=== PATIENT | female | born 1980 | race Caucasian/White ===

== ENCOUNTER 2023-01-22 20:02 | Outpatient (REF) | payer BC, SELFPAY ==
[2023-01-27 12:14] LABS: Age Gdln ACOG Testing Note (.); HPV Aptima Negative (Negative); IGP, Aptima HPV, rfx 16/18,45 Note (.)
== END 2023-01-22 20:03 | disposition home or self-care (01) ==
LOC: LAB 20:02
PROVIDERS: Visit Provider Physician Assistant
DX: Z01.419 Encounter for gynecological examination (general) (routine) without abnormal findings (principal)
CPT/HCPCS: 87624; G0145

== ENCOUNTER 2024-01-29 20:52 | Outpatient (REF) | payer BC, SELFPAY ==
--- OUTSIDE RECORDS SUMMARY | 2024-01-29 20:55 | XMS_ITS | CCD ---
Author Organization [facility] Inform ion Partnership [facility] Care Team Providers Care Unix Analyst Name Role Phone Zapcoder Attending Unavailable MEKA, DR ORONA Admitting Unavailable MEKA, DR ORONA Attending Unavailable MEKA, DR ORONA Consulting Unavailable MEKA, DR ORONA Admitting Unavailable MEKA, DR ORONA Attending Unavailable WEST, DR JIMMIE Dennison Consulting Unavailable MEKA, DR ORONA Consulting Unavailable ASHLEY, PORTIA Attending Unavailable APLING, ALFONSO Admitting Unavailable APLING, ALFONSO Attending Unavailable JIMMIE TOMAS Primary Care Unavailable Be Bradshaw Admitting Unavailable Be Bradshaw Attending Unavailable JIMMIE TOMAS Primary Care Unavailable ANJEL ESTRADA, JAMEY Rodriguez Attending Unavailable JIMMIE TOMAS Primary Care Unavailable ANJEL ESTRADA, JAMEY Rodriguez Admitting Unavailable ANJEL ESTRADA, JAMEY Rodriguez Admitting Unavailable ANJEL ESTRADA, JAMEY Rodriguez Attending Unavailable JIMMIE TOMAS Primary Care Unavailable Kvng Olivares Admitting Unavaila ashley ESTRADA, Kvng Soto Attending Unavaila ble JIMMIE TOMAS Primary Care Unavailable Apling [facility], Alfonso Houston Unavailable Jimmie Tomas MD Primary Care Provider [phone] Allergies Allergy Classification Reported Allergen(s) Allergy Type Date of Onset Reaction(s) Facility (2 sources) Sulfonamides (Antibiotic); Translations: [SULFA (SULFONAMIDE ANTIBIOTICS)] Propensity to adverse reactions to drug (disorder) 9 [facility] Repository (1 source) Sulfamethoxazole; Translations: [sulfamethoxazole ] Drug Allergy [facility] Repository (3 sources) Sulfonamides (Antibiotic) Drug Allergy [facility] Medications Current Medications Medication Drug Class(es) Dates Sig (Normalized) Sig (Original) ethinyl estradiol 0.02 mg / levonorgestrel 0.1 mg oral tablet (3 sources) Progestin, Estrogen, Progestin-containi ng Intrauterine Device Start: 10-23-2023 End: 10-22-2024 levonorgestrel-et hinyl estradiol (Aviane, Alesse, Lessina) 0.1-20 MG-MCG tablet Indications: Uses control Take 1 tablet by mouth Daily 3 months take b/c for 28 days and on 4th month take b/c for 30 days. Back on 3 months straight b/c for 28 days and 4th month 30 days. Continue rest of year 28 tablet 11 10/23/2023 10/22/2024 Active sertraline 50 mg oral tablet (5 sources) Serotonin Reuptake Inhibitor Start: 01-29-2024 take 1 tablet by mouth once daily sertraline (Zoloft) 50 MG tablet Indications: Depression, unspecified depression type (CMS/HCC) Take 1 tablet (50 mg) by mouth Daily 30 tablet 4 01/29/2024 Active Start: 01-29-2024 take 1 tablet by guido th once daily sertraline (Zoloft) 50 MG tablet Indications: Depression, unspecified depression type (CMS/HCC) Take 1 tablet (50 mg) by mouth Daily 30 tablet 4 01/29/2024 Active Start: 09-09-2023 End: 01-29-2024 take 1 tablet by mouth once daily sertraline (Zoloft) 50 MG tablet Indications: Depression, unspecified depression type (CMS/HCC) take 1 tablet by mouth once daily 30 tablet 4 09/09/2023 01/29/2024 Discontinued (Reorder) Problems Active Problems Problem Classification Problem Date Documented Date Episodic/Chronic Headache; including migraine (1 source) Acute post-traumatic headache, not intractable; Translations: [Acute post-traumatic headache, not intractable] Onset: 04-29-2018 Episodic Immunizations and screening for infectious disease (1 source) Encounter for screening for human papillomavirus (HPV); Translations: [ENC SCREENING HUMAN PAPILLOMAVIRUS] Onset: 01-12-2022 Episodic Mood disorders (2 sources) Depressive disorder; Translations: [Depression, unspecified depression type (CMS/HCC)] 01-29-2024 Chronic Other screening for suspected conditions (not mental disorders or infectious disease) (10 sources) Encounter for screening mammogram for malignant neoplasm of breast; Translations: [Encounter for screening for malignant neoplasm of cervix] Onset: 01-10-2022 Episodic Residual codes; unclassified (1 source) Family history of malignant neoplasm of other organs or systems; Translations: [FAM HX MALIG NEOPLASM OTH ORGN/SYS] Onset: 02-02-2022 Episodic Past or Other Problems Problem Classification Problem Date Documented Da te Episodic/Chronic Headache; including migraine (1 source) Headache; including migraine Onset: 04-29-2018 Other connective tissue disease (3 sources) Trochanteric bursitis of right hip; Translations: [Trochanteric bursitis, right hip] Onset: 11-13-2022 11-13-2022 Episodic Other non-traumatic joint disorders (3 sources) Hip pain; Translations: [Pain in right hip] Onset: 11-13-2022 11-13-2022 Episodic Results Test Name Value Interpretation Reference Range Facility Coding Summaryon 03-10-2023 Coding Summary HTMLBase 64 LxtyeycrWAj2bEh+PGhlYW Q+JS9OIDEkU43muCPppJ1f D0KFLYsOUuhyYOELBXrTCg CmppVrUH0arVGcBVWv IC8+CK0bFTToVktcnSSnp9 P0zIB8F35rdo2mJRonbFC8 IAIwNqMssaxbp1obuUb7NZ cuNmluOyBt PGHtuL26TSV7hX60Cr76rM CazBObn5dorLb8DpMuUFDq UCN4mOjaBBrmk3VvXCNdY5 5cmSRhx5Q2 UNOfsNwjlFNnYeZpwIK2yJ 5mGHabezdxb0rfdvagOkd8 sy90jRDhs2E5gED3H5Uvtc W8QGZihAMd YjffeMKRlS2qlkwjl7gpaf thVcLvMMOcHUc3QEp8HECq cAzpAbAbSH97ZLT1TPAaen NfE1KmHALf sOpmMeV2v7D8Un5MU4BYPg qlV4SPSVSMVZyvvVO+PC90 xp50F3RjXaohFlr2EVCgTD T3gFS5oH8f FYXaXIfbj8P5rRJ6Q5Effo Yymy9ql4vfCJGkIBkdZ25m bIUrk0S1VRNfgYQ8GIIlnQ lySuEkyU51 Oyc+EZBxfTkxy2IfAungl4 qsk6uslZb4MtpiFKVblaBd xShuNQY3p4RbIr6tQAWoeC K4aJS7bA2y YhGaNpK1JAjjR122CjHscN ZjMipzL90cZ5YevPY+PHRy Juu2VKKfaFvxNX4gL9ChGR RpbmctbGVm jHnjLC4bOZCwduptLQAulW 6sFLWwC9w5KfJqInH1XTob V3IqVRJmphfuQz10sE6tTx CqOfL9UAun Q8KbtfB1AKHuoBZaOIqrKP E0R64tk6A8USGzCSLrBUN6 oNV4hT2peSizlrwdtDBaoL sgdmVydGlj BJswGIowR272TLJmqVfhEe NvZGluZyBEYXRlOiAgMDEv MTUvMjAyNDwvdGQ+PHRkIH H6fVedTBEx aSHkESvzFg6jiLqcrAayJM 0lQAKizaaaQOAuaQ4lATYj aFUcuGpkPG2cNCMqbibub9 88OxSkWOF1 VEOfgQCqX7MsuT4aDnZoKJ AmRCTnV4IytUSsVVreU824 XCgfWqU4TWMdxzQuN2PeMM FsaWduOiB0 x4Z6Nk7Uk0JrtmyhS7EfjZ MvRmYtDmitXUp0I4UwUoyk dHI+BC45LFNpKZ06TZo5TS N0xUuiDCgn OCPsU3ZalJ9gClOgPJVfGO RkOyc+PHRhYmxlIHdpZHRo CKjtBJFhBwEdvMbsZO2qYv 9yZGVyLWNv iKwxdDEnCdSit9wnJOYeVI rjDC0bmKczG8MeiLG7WIPv b5j6Rt03P41kG3ZgmHO+PG BduHV4jJD6 qZ9nGiNuSbR7UKtbO863Ld YtmKYsIkfdj4zfm6teoGj6 CsQ1PJBeqoAopTzlKVC2r8 RmSe08V06c IHdpZHRoPSIxNSUiIHZhbG uldn5knC2xMo3+PGNvbCB3 dKJ2pM5xKcIwJeL9GUvvR4 49InRvcCIv Venlk4ifc4ryaKc4TyHyBU BxwzStzKyuQQI4o7WkNe37 M3OdtKyyf5YxJhn2mw71qC Ihv6R6lIZ3 K0LmYJUormsthSEhrZbzYP 5hNVFlpwlpJLVjiO5xKAAy P8g9GrQsKwB9BCmsW4Obkc C8EKMgmGNo INNcuJSSlR9nhfxiw8doxl voVxTzZFMvOCi1QCq0ZYIw uUorLyZgHQB0JkX7OKI3zU XmxT9sgJcq vngmnI5tWci+HPL8oPQkyP BEDF5uDdnzrAL+PHRkIHN0 aDncDBouQCSjbU8nBYKdG1 p7KnMmKcA4 FStpS2IvifD8MSUaoJYkZK AdoEAUnR6vjwxjy9pijbcj BbCaUYNvNFm3CQa0MSFqwO duOiBsZWZ0 FpP8AHS7gBUxrT7hpDyxhv zueV8eQve+QmlydGggRGF0 NCc6R8AhKxu8QRCwoHujUI 0ncGFkZGlu Kw5daCzyzZlfKF8hOVKwyo oue174PhYbn7bxWITbfXNz PHpqAJP5V37be7G9OHUqZC JkSPJ1sZC4 sB2wwFnxsyqjhPCqoFmiva OhcBnqVJhnMUqgB742TYVn fXcnYpOrGHw8W3HmTqt3QN DkrRbyWU9o nDSwNUbaUt5jaAvprVywCA 8cFGBbpzyjw254MyNuo1nj DBXmxIUvOOblWJO1T64wj8 J2ASKuXALr FKC2uPU3pJ9pcRagfzhxoY VmdDsgdmVydGljYWwtYWxp L208OLLkpXtiUvRjhKe5G1 OjMap6AHSu zSjnZF9atKOoPWmsJo5jgW nfvDuoUX0jNCQanirbe501 NoDrt2puDXArnASkCWpdGY X5P80fk7H6 IBNuBIRlVKV8lVP9eZ4geK lnbjogbGVmdDsgdmVydGlj FWvsPNooA305KWHibSasUc BhdGllbnQg RVyeEVl0G7KjGugpjAC+PC 77JGLwSG20yJYhbWEux5dv tNt5XzStHLFgIUV1dYraRQ ody1NuLCEn K91fsTMik3F5FLLdbChunS YfDaFaqZN0oI0kEMnhwfls n1kwsumxTisdx2nuaq47nE 80B85pTWph ZHRoPSIzMCUiIHZhbGlnbj 4nzS1fIb8+JSGdyEZ9aVQ9 dA9vPDNgEwW6IKfzS906Bg RvcCIvPjxj k3ydv5vucOx5FfW1YVYcml TrxVwxQEC8z4VtJt01G76b IHdpZHRoPSIyMCUiIHZhbG dzdb7hvP7r Ii8+GCCpbUU3kEF4wI4jAb HgCdB8XUdrT340ZeFyiOUf MtowR58mR9KivVW+PHRyPj k4NTMrlKbw FU3otGUmKNnuPh4eXXL3Sq GjTjSoFJsgD4LsSJDchruv ypwhbNP8JQDvNOHzlG86Pf 9udDogMTBw tTISlJ7korobg7lxpgtnGp HrAESfRMm9GKm4RVQztQgy AjSmJFU5IxD3ADN3gLUwiC 1hbGlnbjog zL8oI1YiPUGugxqrSh01xQ 0wPfFgSnZ7LZvfInr+VEFM Cb3RAWONBN3QCHZOCL70K7 UrXbc9ZTKu gWywPS9xhKNsILndUg9arO fnlXwmJJ5qFWWfufgyQDAd zU1rTFQovYSgpOneVG9mNY Owjhqqq666 QfYvZGO3KDCczMXmJ5AyhR 3cPnBjTGEiVONiG3WvwOSx THdyW374FYzeKxE2QNTrhb VzR5QaKMFl dHjbUjJ6g3O3Xw7hUx0aIk 2pNRydYZ07PU74wRHxk2A7 iFB5Z8GlFSKfvuybnmrdtM H3UCEtIJCk fC85bXWkLUlrBz2vo6T5q0 39WOEpCDLlfP29Hq0ywTra PLLwlFYAuT0kkxivq4myed ogIzAwMDAw ORx3JDf9FOMauAwmIgSzHL Z2LoG9DXB6cEFhvO5viSbf amhyaH7vZtg+NDEgWWVhcn L6S1TvEma9 LBLhkNkiEU1ihVKgMRshOj 6wtLkmlEggGC5gHZEsurxj ZYCcpH5jPNLnfZIraRsgCO 4wNTBpbjtm f277GvFcMZN7ZCFaiCExU1 CjgI4cDrUgJNLgNCOmL6Pz yGMqHIzmR072VLlqAwE7FW JslaIbU8Bi LWEqgNxhTdV2h0W3Ux9JSL 2DBWR4N5DhAdr7TITuvLsb KI5yvIIeCXvuNo4juRvwaX hbEJ4dURZz htteLVQdzC2qQEPgeQMdoN roWO0hXCDmdflpw732ZuLt PZR6WECxnMXgE6FlxM5qGr AjMDAwMDAw I5IydAWiGWbfU640GLysQn G4HJKtakIbH4ThAXAvaFsa VtE4q2W1Yx6HLXechDC+PC 14jj63L1Qq YlapVzd2XESqTYO2oGH1vB 3dPOBkHSskg4U9hFE7U5Ul doGgfb9fj9btHPSaYRvvB7 5byYPpx1Z1 TUDjzQA0SJPfiMmeNqRzrW 93Oyc+DEPkbNore4DsJrgc x2zyz0qqxRc5HlDpDMWcvh FsaWduPSJ0 s1DsBa20G45eRGxpFUZoFT EsBXLfXFIuxFfksz0hcG4e Ii8+NITtuIA5bCF5vD1tTm PvAdY1GAdf B810LwDdrLNpHhmvx6prt1 qafPw8VyFoFHPavbVoaOif VSJ8f2JrIl70A0BpdNwth2 HtNqy0ca95 oLZgo5T3mEB9V4JsWIJhdh sjgLSaaTbkVN2xUUFqrpdi DDOclF4jCAOcR2t7AiUmEp R1OLhjN9Oq inP8JAUvkVRrOWVdcEGAzJ 2thcojh7zjqicxBnVpLZYf LPs2TIu1MZSovWrlIiIfLS D3MnT0VPD7 qHKmjK2gnNjaddtjiG9jKb c+IRo3w7uteKYkAX7rgQY2 HM90RW78wQVow8X3mUC9G0 BhZGRpbmct phxmhLB2WBNhFQRgsM70Xg 0vmKcrZn1aAVHhTGF3AQKh uGOcW5KaiR7fAkAdJQYeSN UoJ0JhhOIo EJnfQ255FRotNdM4DMYivc TxJ2YpLAYfvSfaVoK5i8A2 Pz6TUB35BT72XB41mXIru6 Q2iEP8M1Yb VROvonrshweetJA7PLKiMS UhpX78Fb7daBaaGd8gKZNp GTW2EJLyfJPpK9LslE5rMa AjMDAwMDAw A3JedLGqRQhbR493PEwwJd A9QESkklVaZ3LkOYRkpKci GhG5f8F8Fk5ODv94BD74JD 87vLHfs6H5 wZM3Z2TjPKUwtsxsorjoaT N2AAWdZCOfxS21Le3rlJnj Mc7kGNYxPPO5AFUqtCXeY1 KxrY4fMaNh MDSyRKJyA5KomPRsSRalA3 91JWqlCkZ8TWHlnlBfQ9Mk DOPbvKqqSzO6q6J7Nk9BJL ikzgn9E3Lw PjwvdHI+SM40DFVeLC66fW IbkTAsu1oidOm9SsUtCQSe RAS4pOrqDPjmr4LeMGSkP0 4qaDZci3A2 IGN (more content not included)... [facility] Coding Summaryon 03-05-2023 Coding Summary HTMLBase 64 WgjlkwgwDWb1uZk+PGhlYW Q+MO1MAUGdG08yiWXfhR4d X8FXSNtJLsygLCQJPMyIIk AasyViWZ2wcJOnNWGa IC8+OD5iTXDpEeifbOJjv7 D4rGO1L21zcj5sHMuwfLK3 GWEfDdAwwagkj7rqzLj3QB cuNmluOyBt FVWvlV41FPA9vR74Sn32dW IglYIth6uezXo8YfWyBTAy EIG5aPloGZyvx3HwAZSuR7 1heJAmq0L7 SJUqfQcqbCDxZvVayPO7lF 7eBPvlkyqlz0wanymwXcw6 bk51eJUxr6A7oMM9I6Imbs B2ZMPrbFVr VxstuNBJaQ7vpjnkx2ksmp haOgTrDOPzRXw4IQo2JFRp aStgJwCbEK52FZB9ZVDktp EkJ5ZdNSJt yKtfIdH7a6L2Jx7QZ1TBLn jnG1DFXFBCZQmzbCO+PC90 vc65T6OrKcvlGfi5QQIiTO M5tJW2zY7o RLDmMRuna5E6nHS0D6Gung Odri4cw9pfUBQnXFjgD10g cGZua9W8QQYhkIK6ZOMeiT vpPmOttI03 Oyc+CCIflYdlh8MiSthpr4 prg2ffuRy4DywnAXKezbJn dUamEZD2l5ZcCk2gHMHebY O6cJZ4vC4d SyAuXnG6ZFsxF431RcGaaC JnQcssV08oU3IciKO+PHRy Jud1HAJwiUqcCO2hY7MxHK RpbmctbGVm vBhhCV0vMTKhcpckREVugR 5tBLAyC4n3JpKwBeB8XIme S2KtLZSpwhyhMk26gH1wKi MiUsG5QByi H3SioyO4JACecRTdRErwWF H2D79dx7N3GBSfNFDvELO3 dCV4hX6phCjbkfjpaBYcwI sgdmVydGlj JBspSVnnP791WIYphDumVs NvZGluZyBEYXRlOiAgMDEv MTAvMjAyNDwvdGQ+PHRkIH S4dCtfGBXt sWQoFEfaFq3zyUpxaCcfFW 6pIWNqlrveYMSymQ7zQJXq pWHymJzrMX4jAKDkjtwyj9 71KkFcQRR8 SFJfnCYwE3OcvY9cHeFwEO AzTWQlB4UqjTYkQFipC094 EBflZkT6IXJwgfDvA0CjGH FsaWduOiB0 h2Q9Ww3Ie1WtbqwfD2JltF AiQtHlZusjILu1K4HqFhbf dHI+HQ61BIEkTU61KDp1YQ V5vFngLAhb FMDhT6GznU9kWuPoGZJpDJ RkOyc+PHRhYmxlIHdpZHRo VLoaFADiSlUblFvoOR8rRq 9yZGVyLWNv pSkmwNTgAoNso1ucNLQqQU nbPT8ziEbyP8XclWR4SBKy m3h7Iz29W34pP2EivOS+PG NzbHL7tCW6 xV6eVzPgGtL3MKxzY720Vz ZriPDgCylcl7snp1bvhFs8 UaC7XQKytyFfcTeoNAR5s9 DbYm57V26d IHdpZHRoPSIxNSUiIHZhbG wlmd8ujR1aDb2+PGNvbCB3 nZZ9jK5dZfEwKzW9NKxiW6 49InRvcCIv Uecpl5hhr7hquYc4XwGhWS RminPvxSaeZPX6l1LcBy72 F0TsoXbef4XuHhv7zr75yE Sao4E5yBT5 U4CjYNOnwtocaYPzmJcsFZ 3kXABymegbNPQdgK9iQDLu B6f2CyXtXjZ9KJkgS2Ozgk W0YTYipKNw KKRqnKARdK0yctaqo4wdpm xuIxGdLRUbXKh3AXh4BKSf cZwlIlDrCUP4VnV8ZCH2nL JyvE8loEwv pbkucJ4pNhn+IPM2fRZhlL TPIW9fRpjbxTC+PHRkIHN0 rXevVWqsJTXleT5oZMZmR6 k2OhEvSmW7 AXmgL1HzwgQ0LZCurOGxAF MctUAVyY6kzdfel2epbgqy TyOiVWAiLEt9EAk8VRRowH duOiBsZWZ0 XiX4IKO6jLDskE0htUgqbe pjbI1uGuq+QmlydGggRGF0 YVh6Q6WvJlt1ACLbaEjcOE 0ncGFkZGlu Pb1jxBhdnSfvKT5zFRPavp eiv428IsNgd6izQBTwmZFb PPczPKA4A67ew1L7YVWwSO KbHMZ1vQH2 qH8jpYietaufeGKvpZrsve MigRcoGYyzPMufM325OUWh rFqlVhLwWWm0Q9FwDyi6GM DklAprEU6r aWAvEUqeOv6xnXfujTwyAR 5nENEorwxjl852MiSfq5rn OWRgfLNpKAloXDL0C27wc8 M1TSZaYCKx IUB3wVD1jE6uhRrqzowiyP VmdDsgdmVydGljYWwtYWxp N103CZXnsIsyFjZhsAx6Q2 QsDkj6PKTm wEydJY5qzRRjFByqNi9lxN ytuRohUN2cPQDddfbfd409 CaQwj5gqNNCzrDMuPOsaLB G0K28tb4K7 THHlFEHcBNW0eGV8wH2quR lnbjogbGVmdDsgdmVydGlj XIphUTyvO320NYGznXfpAm BhdGllbnQg MBkjRXw1G7CxCsfcgKS+PC 17DSBpDA38uFFklIZnf3tv yAp2FeReKQExFWW2dDmhZU wmt1DvKSZg E84inRGyx7W2REMsuFytvX JnAfLlkRA9uP6uUSrhinfy g4urivwwLtkgg6bmgi77fU 70N84pYWff ZHRoPSIzMCUiIHZhbGlnbj 8iwA4yJd2+ETZgwFP2mXY5 bJ6kHGHzFzM5ABijK449Ba RvcCIvPjxj b4fia5ysjEy2EdW2ZTIukm HddXypLYC0t9ZxHh97G16r IHdpZHRoPSIyMCUiIHZhbG yspe1vpQ6w Ii8+AUVwsDO9rZZ2uB2kYm ZwIbB3MXdqG409UoIzwHVf QmuoV92vC0AprTN+PHRyPj n2FPVioWaf MU0knOJkQLdjRd6wXPA5Ig QwCfMrHVxvN2OkXSCmjhnp ryqngZO2UQBoMJXvrQ54Vz 9udDogMTBw uUARoV9ovqflb7gyzhwnPq ImJYFaQOq4VVw5SVUxlHfy HbUnHFY0GxM4EAQ8rGXceK 1hbGlnbjog mN8gP9UoWARxaqzvOj54rD 7gOyAkDbL2DMqlDyt+VEFM Yd0NQXBHOB1SPEJVBG58H4 AyFww6JXSo jGkxCN4wcWVsIZfkUh9rdJ unhQqhUA9tMZVvmzywZHNo zI2wEVXazTZizFmnQR9hRU Xtzeztp811 CvFxLDE4EWJgaIHwO0JvjR 3eQqYkMWRyZZVqR0ZcgIIx IUlsX910CUpkCtS0KUPkrn AbN6NiOBVq aWuzNlM9f9C5Cg6qZr4nZl 9cKMtiTJ96PT08bJUfy1J0 vGP5W2FvRFZfnwiblcaemO P5JDPrBGAn sN48sUPmDLbyVr2cq9X8j0 48SJWhXZDjwQ20Cy5rtJsz DDFspXFPpV1aacgtt1pcss ogIzAwMDAw YUe6NLt9PEAwsOgaXaMzUH E1WiM2VQR5kTTyiA1hqPzz rzfzeJ5aCwq+NDEgWWVhcn S4E1AkUfa2 CCTrjXkhBJ9mkNCnFGhwUh 8xdGfguFpxRC9rOHQnzwlc CYFmsJ4nQFCorEWjvKkjNJ 4wNTBpbjtm q344AiNsERN3QJBroUNhF3 QpsT4zIlGcCYLgGVWuO0Fh bJBwTDbyU087JVboAuQ7WF XphhFvH3Jz GCJcgZllVaB2k8A5Ye3FZQ 6MXUV6C3SiTkt4FVSktCqg XX0gvVSgETvzAf2ftHmvrR itDT5hXKAq obfqPAIcdA1wDBVinWRdgX cgVX2hQVXknkbsx566WnGn GJM7YIClqFAuH6BqpI6iMq AjMDAwMDAw V8WzoOQrUWenM201GWhdWr D6NFCrtvAsY2NiQAKolXbd TdV5d1P0So7FzHUuO2BbN3 d3D3FeIvus dHI+YD73PAPtJW05qNKbpW Nqw2fzzJw9UyCsREPvLCA6 tDpkBWojp9ZdNKAdR06igS Rvl5B6VSVs dXflyPYuYjYssKS3dD2gMA gxzjqhb7fowlvuSuhla5za ix14eS74D42cSJuwFKApUS IzMCUiIHZh xYdduj1afH0wTq6+PGNvbC C0wWM9cT2uSqGyIaZ0SHkj J913KyBtvNDsJhwbv6ztg1 ykgCp0OlSu RBJakbMczVdwEET3f6FrMj 67I31aPCvuZUSsHUJhJYPc SHPsvUciht0umK3aJy9+PC 1yc2klls84 yE40aZV+VFClBBL5nVwvXA jtLNTaaJ3nVFxpQrL0SLYv ZdYcvP24iUAdLTzeCy5foC dsyPuzWR9i ITHxswlny089RgYtl3ivMZ NjpVHrPXnqASL2V98om7U8 FXIkAHYwDOH3eBC8hD4sdV lnbjogbGVm dDsgdmVydGljYWwtYWxpZ2 41KXDafBeiHdWoeSJeK5wb mgLOAA2fIapbyXA+PHRkIH X0gLwuTVxa WAOyjE9hSXPrS4m0PrLlPd O7TTlmY6AhajM0PYFosUCy XBPikLUNfM7yxkokt2ogrt ogIzAwMDAw MRx9GLl3TSPtdAtoYnGpMO M5IzP1TFS9xNHtaZ5czDed dhxuuZ0wZoz+RklOOjwvdG Q+PHRkIHN0 qOmuTNwxXXFghZ5uBVJsD4 i1KmLyPyK9UPgpR8DoakU8 LKFbhUCwYRLksMYEfW5tou bdt7ryjwfx HmHaTFKiTUh9TMo3VXImpU haJjFyJSB9ThM5ZHF2xVOa mZ8dvOabzdqpmO3qJwg+TV JOOjwvdGQ+ CSJsXTX6qSyxFFztXXOsoU 1jTZYgQ7c4AjRgFqT4BWcc V0FwgsU9MOAcqPSoLOTqtN QZhL6fwina w5hlytnsLnTsJIJaFHn5PT e7HJWmdAfoDdKxGPC6QkZ6 LMT4hFTbxS4hqVwxztoraP 9wOyc+UGF5 WTV6II73EM73E8CwWepohW FibGU+PHRhYmxlIHdpZHRo FBbiZPDoOmUorEfnDS2lKl 9yZGVyLWNv bGx (more content not included)... [facility] Coding Summary HTMLBase 64 QtbxanriZLe1yYm+PGhlYW Q+XB8EMNKzY53rfQXaeU3v Q7ZITMzATbbtVLZAULmRTj ItkhExAY2iaBZtBGMt IC8+VM3cFLNyQbynlINhp2 T1dIX8K23juu2yBDhtsMK1 WHHfVfLldnlpf9zdyFj7CB cuNmluOyBt ALShnJ67BAI4iP08Rv08eK ZdiAQbx8ptnRt2VmXxYGUs BKK5iDtjCCqbb0QjGZNvG7 4cuOVqs1T8 OAGwiRymwVTwCrXpxEZ8nA 4uDQjguekvo3iykyajFak0 gr01xFHxs1T5wZD3N8Wjwx F0IZJdgXNj XcfgxBMAnC3ktukgi7fdqm mbMqVrMTJpLKl9LBv0ABVu kKsdIoJfDN13NWV3QHKklh EnK3ZpHLWp tEkyShK0g9Q4Yg4EG7LSRx iyK0ZPYSKMXNgvmJH+PC90 fm34S7LmQyusGxw9BXCpZD B6fWK5gM9o EURaKQxwo2V8jZB5B1Gtdn Mzdb9wo5bqWLCeEXsmF52t wKEzi5C1PDHcvGZ0FRKxcS owMeUquQ08 Oyc+LNUqjRzmq6XcNlfjp0 iyp5kahGg6OuhyCOFkswKe bUmvDCI7d5CcQq6gHXGayJ A0hDC1aX3i UdHlBmZ1VRezG758GnQfoV ApFwhmG48lM6DmmTV+PHRy Tld4HMYmsQndUA1sU0TwQM RpbmctbGVm eRhbNC5oHZPnzroqUAWnoV 0yMYNdD6s0KuWaVjQ8BBog A9EbCLBgsewhPs31zI4hGd KdLgP5FCqs D1HbuvP4KKNhyIUhGKhlFY T2K86uo7K9IEOlCGXoZNB6 fHT1uP4ziBxnmgbdfZNoaF sgdmVydGlj SKtxMWrrT552QFNcfPspCo NvZGluZyBEYXRlOiAgMDEv MTAvMjAyNDwvdGQ+PHRkIH L8kJyiPSJx iKXcUIzfSb8eoAzdoRktDY 4aIQFbukrmXAWkbT1bMCIk kNAfsCgrCL8jGPMmbmknf3 02OzAeHLM2 UWFhsFWkZ2LhmN6qJsAwNV CuRDRdH5DciHZuFXhqJ513 YAvhJjR6DXNherFbO2CwRD FsaWduOiB0 p5C7Cv6Gn8EltfikG2EzsX AuAnJrRiqrVDg0V0OwYzzs dHI+SM77JOExCI04ZAt6BZ X4pTkjJBpx YHRhJ1BglW0eJxBdBDTqLB RkOyc+PHRhYmxlIHdpZHRo WKwnXDApJqZerUztNZ0lOk 9yZGVyLWNv zQyhpSRwKfZhl0szHSBqKK gnBK7auKvsW1MwoUN9HNFn t3j1Mh45K38mV1MyxAK+PG VqdCA7gIA1 oJ3vXlAbMmK4PSteD728Wp UjfFRnTlmrw2lpy4ksxWv2 RxT9ACXepxItjPvsNAH0d4 XkIq86X83g IHdpZHRoPSIxNSUiIHZhbG rubv7anX7aVe0+PGNvbCB3 mTE7dE7yByEwGtJ3TUbnC9 49InRvcCIv Jsqxd9inu7vwfDf0EcZjRB HofyWytCqaMWX2v4KjPt10 E4KftTbup2KtOrr1aw44mP Ths2O5hPQ2 U4FaRHKblrpumBTdoLnlTT 7uBOHdsuibAYHegS5uQKGs K5w1IcCvXyN6TWjpC6Pnec B5VLHrdIKq EWOgcBAXsH1gfvrbw3pjkg maNgVgRPChWTb4JNv0BBAe eAflWqImGEA0OiO9IGS1gB LqmK3uaHws thcyqX8cIdv+OLN3eAVscQ RKXC2tFsninSC+PHRkIHN0 zZzoEGleSVDtqY6tNONkJ2 l8PkIzJvH9 ZMxyO5FsgvK3XANjuAZgRZ ItqHGDsH0cnbnwc3dihqxw HdSeOKWdPUx2YZb9WSVuaP duOiBsZWZ0 McX0QVM3yUWakK5cnRrfks qoqJ1bVci+QmlydGggRGF0 YKk7Y2FlQzc9LJFisTpgMG 0ncGFkZGlu Sl1qkOxaeHvyRB4zSNZvgq xzo779TrBzb2gaHFHktAMr YKhvWQV1Z46an4F1YTGyCA TzPJC5hXN8 bP5yfBcqmcvruSAltUplhy YwwWzuBOnrJVufN601LWWz kTbvJoUxVXt7W1JiXbf6YO OmqZqjFB8n eWYkDBgfDy5zuQxloMhtBQ 8pTEYmecbva057YhCok6zf SHEzwRCeXMhsTVC1P63bv7 R5FYDkNZOw PDO5vDA6yR4baPxsepyqrT VmdDsgdmVydGljYWwtYWxp R456NAHzaGuwJlWjsUz5M5 RbEja7KWTz iAtiRK1xyJMgMQrzTo9jfQ dwbVizAH9sSZGvgfium456 LbRqv3brZWXodCMnIAzwZO L3G71dy7R7 EKZvLJAoWEV7jFT1xG7sgO lnbjogbGVmdDsgdmVydGlj AWyrAJfgU178RWHrgPccKo BhdGllbnQg UGtbGTf6W3MeXanjrYC+PC 77QGDdTH14sLTgzPEsc6wf uTl8DoQrPRZgKEZ5pSuiJP xuk4BvEKRa R10ciUMhv7P1LDRzyGjcqU JmQdWwrAN7rT7lKObbuzzv b8tsdbrzNrppj6jvwn37wQ 99N00wGQfa ZHRoPSIzMCUiIHZhbGlnbj 9sdF8mOt8+THMufXC4lTM9 qT8sFIDpNrM8MAxkQ696Hb RvcCIvPjxj t4eet8xqgGp3RhL6JFOkax ZzmMrnAHD1c4TfUk12Q11l IHdpZHRoPSIyMCUiIHZhbG yxfe6bnF1j Ii8+LWXyuXJ0wQJ9qU9sEi PnKaH2QHfwN203KoLwzWZl LahyT03rQ8VmjLI+PHRyPj o9GMYbgQyv HC9yvGNjTUohSt9eJIF0Fr SnSqDwBAdjS0KkACJpeyux cxfwfCO9ISChQVJnjU53Ef 9udDogMTBw lQVClK8gxhpsw5xxmgtgPv UmTYSrFPf4WEk2AFVjhOyo UoJhLFP4BtY3XIN4zYIhtE 1hbGlnbjog tT1kG4TjTDWjslhpNg70aG 1nTkDvCuS0YCcnJsc+VEFM Za1DPAPCUG4NCDEECM47H5 FpKaw7GVWb rHaxUC6oqSDhSVxcUe9ucA beuObuIT6gVZZoajusNVDp pA7nCJGmhTKxnRgrGX8jIJ Gzalrde239 ElKmGHP0SFHdfSVxC3QbjK 1oKxHdUPJdBHUyW0UkuALm HEbvW811TRxkZaD3LLYkiy EdQ8NdTQIy zJzvVcC1q6A6Tx8aHw7dMf 0cJPfvGM94QD53kPEkr9F5 bAO1A4VsRMXemnbjcqyfyC E3RWToWXMd bD64jVQrTYrmYz8ei6Q1q2 35TXCpSWHohM32Mv6yqDwq KLMtlUOXjG8wezwbe6hzoc ogIzAwMDAw JHu0TBx7GUJosWqrOfAzPN Y7TmT8COP0pZNgeW8dlTir uwutaF9bGdr+NDEgWWVhcn A1T1BnLzi2 LHZqbYokTT3daWOyTFooKp 9neIxsyPywCQ6eEBXgxbbn KJQpaP6jXORflAZdrOgrGO 4wNTBpbjtm j228MlXxNMX3SGAhwYOjU7 VdgG6lJjSyXQDiXYMpA2Jc xRDqFWifC235YJyhPtJ3CT MqtmNyP8Sv TPGmwDgrLrE1p8P8Vh2YNX 0QBTY3I5UcDxa9XBIlsXxb PY3kzDXiPFjzVc8fnOffsL yvBF8tDEQy udbaXUYkzF9fWQSvhQWwhS iiIS0tCCIlqxyju017IsFe GVE2WCRvqXOgL9WzlI8cLh AjMDAwMDAw O9TthTWwEAwkF111YXpiBs G3FZNazrHiD6CzXPQhtYok XrY8s4T9Ai4KkKLqO3JjP5 x6S2MbOkat dHI+WH80REVzOZ56yPGbxJ Zwo6dwiDx2RxCcHSPhQMP3 qQmyQXxfi7BwPOTkR29qbX Ifs5P0HMCe gNsrqTMbZjPruQM0nL3nUG jdgzkdm0mubxkrPrwzc3zw st32yP64P32sNKkdJSKvMQ IzMCUiIHZh bFlqow5wkY4sCs9+PGNvbC X0mRM2sY7sGiBcRwC6HWjg J281VeAxbRUeUsvtt6tcv6 hpqHy3QgXe RMHqrxEyyBtdIHL1h7VbUf 84U84xOEuaEWOtOUWyVKSm OLWjnZfylm3keE8dAu6+PC 5ut8fqxb36 bL16oRA+HQAfXKK5rUzuKN guRMWcmT1xTKojBaS9ANSh WwXpuS30jEUsJSyrUm7ucH vdeKyuTD4j QOJkibgmy243KtDdz3nkOC AmoTEhJPcrKOY5S43ey5M0 XXYzOSKnQAB8rRZ2xR2voF lnbjogbGVm dDsgdmVydGljYWwtYWxpZ2 50CPWgoYqdKkOniJVbQ7ou syMDKJ1pJpdqyOV+PHRkIH W7kUnxWSlp VPRmdU4oRLSfP7w0MgBaCq S1RQauL1IqimK3TDRseQSx MYEzzNYAyI7lmoojh9mxan ogIzAwMDAw EIg6XZz1SOKynAkaMoWwZG H9GhX5MEP4rIFnzO0foVdt zqixeK3qNxr+RklOOjwvdG Q+PHRkIHN0 sAxoZGgaUKJkpE5rWIHyX9 q5TfVhXjV3QKmkI5KaiuB1 SXMgkKGtCJAwhBXMuI6ppi fwu0wuaevc XcZrMEYjVGd1YBs1NEUulD bxJbFbLSQ4QeO8KPL6uHCu iS8vzWbvthzpxQ2hTsa+TV JOOjwvdGQ+ WVMuHWB2fZdyDWlkIEIkfK 6zWODwG8g0RtYyNpP2IOeg V1SbkvO4XABnjRYuFKInjB ATrZ7tunep e2ljyxsyOeGtIQMaYId6GT a1TPTrrVjdFjHpRHC3MwW3 LIG1uPExbN6kxHzprnjlhL 9wOyc+UGF5 TRR9SV88DX42U8IvOzxoaA FibGU+PHRhYmxlIHdpZHRo QFzeBOPoHyLbvMooWX7gPb 9yZGVyLWNv bGx (more content not included)... Normal [facility] C Urineon 02-21-2023 C Urine Urine Culture ordere d as a result of parameters set on specific urine dip and urine microsopic results. <10,000 cfu/ml [facility] Comment on above: Performed By: #### 1 [id number] ####[facility] (DEFAULT)[address] [place] [address] Consent Formson 02-20-2023 Consent Forms [id number] TGTIFF Normal [facility] ED Clinical Summaryon 2022 ED Clinical Summary [facility] - Emergency Department [address] [place], [place] [id number] ED Clinical Summary PERSON INFORMATION Name: SHANTAL GARCIA Age: 42 Years Sex: FEMALE : 1980 MRN: Acct#: Visit Reason: Medical problem reevaluation; Abdominal pain reevaluation; Nausea and vomiting; Abdominal pain; VOMITING, ABD PAIN, BODY ACHES Arrival: 02/19/2023 17:54:42 Discharge: 02/19/2023 22:00:00 LOS: 000 04:06 Check In: 02/19/2023 17:54:42 Checkout:02/19/2023 22:00:00 Address: [address] [place] [address] PCP: JIMMIE TOMAS PROVIDER INFORMATION Provider Role Assigned Unassigned Susan Ramirez [employer] Nurse 02/19/2023 18:17:25 Tomás Mclean [employer] Nurse 02/19/2023 19:14:40 Be Bradshaw DO ED Provider 02/19/2023 19:32:07 Kvng Veras DO ED Provider 02/19/2023 21:20:44 VITALS INFORMATION Vital Sign Triage Latest Temperature Tympanic Temperature Temporal Artery Pulse Rate 86 bpm 80 bpm O2 Sat 98 % 100 % Respiratory Rate 18 br/min 18 br/min Blood Pressure /71 mmHg /71 mmHg MEDICAL INFORMATION Medications Given: Medication Dose Route ondansetron 4 mg IV Push ketorolac 30 mg IV Push iohexol (Omnipaque 350 100 ml) 350 mg IV Push ondansetron (THP #1 Tab ondansetron 4 mg ODT Tab) 1 packet(s) Oral Allergy Information: sulfamethoxazole PHYSICIAN DOCUMENTATION DISCHARGE INFORMATION: Discharge Disposition: Home Discharge Location: Home PATIENT EDUCATION INFORMATION Instructions: Viral Gastroenteritis, Adult, Pedv-[id number]; How to Take Your Blood Pressure; Abdominal Pain, Adult Follow-Up: With: Address: When: JIMMIE TOMAS [address] [place] [address] [phone] In 2 days 02/21/2023, only if needed Comments: Take Zofran as needed for nausea Use Tylenol and Motrin every 8 hours as needed for pain relief Drink plenty of fluids with electrolytes even if you cannot eat. Slowly advance your diet as tolerated. Avoid spicy or greasy foods or anything harsh on the stomach Use the BRATTY diet consisting of bread, rice, applesauce, toast, tea, yogurt Return if you develop persistent nausea and vomiting, continued or worsening abdominal pain, blood in your stool, fevers or chills, lightheadedness DIAGNOSIS: 1:RLQ abdominal pain; 2:Nausea & vomiting; 3:Blood pressure elevated without history of HTN; Enteritis; Viral illness Patient Understands: Yes - Patient/family/caregiv er verbalizes understanding of instructions given Comment: Normal [facility] ED Patient Summaryon 023 ED Patient Summary [facility] - Emergency Department [address] [place] [id number] PATIENT DISCHARGE INSTRUCTIONS Patient Information Name: SHANTAL GARCIA Age: 42 Years Date of : 1980 Reason For Visit: Medical problem reevaluation; Abdominal pain reevaluation; Nausea and vomiting; Abdominal pain; VOMITING, ABD PAIN, BODY ACHES Arrival Time: 02/19/2023 17:54:42 Primary Care Physician: JIMMIE TOMAS Attending Physician: Be Bradshaw DO Comment: Visit Diagnosis: Diagnoses This Visit Abdominal pain ([id number]) Abdominal pain reevaluation ([id number]) Blood pressure elevated without history of HTN (R03.0) Enteritis (K52.9) Medical problem reevaluation ([id number]) Nausea & vomiting (R11.2) Nausea and vomiting ([id number]) RLQ abdominal pain (R10.31) Viral illness (B34.9) [facility] [facility] is open Friday through Friday from 9A to 6P and Friday and Friday from 9A to 5P Prescription Information: If you have been given a prescription for narcotics, seek immediate medical attention if you have any difficulty breathing or any sudden status changes such as confusion and sleepiness. If you or anyone you know is experiencing suicidal thoughts, mental health, alcohol and/or drug addiction problems; contact the [facility] 16/09 Crisis Hotline -Text 4HOPE to 655963. If you received any narcotics, sedation, or any other medication that causes drowsiness for the next 24 hours, unless otherwise directed: ? Do not drive a car. ? Do not operate machinery such as power tools, lawn mowers, drills, sewing machines, or stoves ? Avoid alcoholic beverages and drugs for allergies, nerves, or sleep ? Do not make important personal or business decisions or sign any legal documents With: Address: When: JIMMIE TOMAS [address] [place] [address] In 2 days 02/21/2023, only if needed Comments: Take Zofran as needed for nausea Use Tylenol and Motrin every 8 hours as needed for pain relief Drink plenty of fluids with electrolytes even if you cannot eat. Slowly advance your diet as tolerated. Avoid spicy or greasy foods or anything harsh on the stomach Use the BRATTY diet consisting of bread, rice, applesauce, toast, tea, yogurt Return if you develop persistent nausea and vomiting, continued or worsening abdominal pain, blood in your stool, fevers or chills, lightheadedness Medication Information: The exam and treatment you received today in the [facility] Emergency Department were for an urgent problem and are not intended as complete care. It is important for you to follow up with a doctor, nurse practitioner, or physician?s assistant offset press operator for ongoing care. If your symptoms become worse or you do not improve as expected and you are unable to reach your usual health care provider, you should return to the Emergency Department, we are available 24 hours a day. For those patients who have received Radiology results, the interpretation of your X-ray as given to you by our Emergency Department physician is only a preliminary report. The Radiologist will review your films and if there is a change in the diagnosis you will be notified by phone. Please make sure you have provided a working phone number so we can reach you if necessary. In the event that you had a lab culture while you were a patient in the Emergency Department, you will be notified by phone if there is a need to change your antibiotic. Please make sure you have provided a working phone number so we can reach you if necessary. [facility] Emergency Department has provided you with a complete list of medications post discharge. Please inform your licensed mortgage loan officer/provider of your visit and for further instruction on these medications. Any specific questions regarding your chronic medications and dosages should be discussed with your primary care physician(s) and/or pharmacist. New Medications [id number], [address], [place] [id number], [phone] ondansetron (ondansetron 4 mg oral tablet, disintegrating) 1 tab(s) Oral (given by mouth) Every 8 hours (scheduled) as needed as needed for nausea/vomiting. Refills: 0. Additional medications on your home medication list not specifically addressed. Please contact the ordering physician if you have questions about these medications. ethinyl estradiol-levonorgestr el (Aviane) 1 tab(s) Oral (given by mouth) every day. ondansetron (ondansetron 4 mg oral tablet, disintegrating) 1 tab(s) Oral (given by mouth) 2 times a day (scheduled) as needed Nausea. Refills: 0. sertraline (Zoloft 50 mg oral tablet) 1 tab(s) Oral (given by mouth) every day. Refills: 3. Visit Information Allergies: Substance Reaction Symptoms Type Comments sulfamethoxazole Drug Vital Signs: Vitals and Measurements this Visit (last (more content not included)... Normal [facility] Electronic Messagingon 02-20 Electronic Messaging --- --- --- --- --- --- --- --- --- From: Directtest ([id number]), Directtest To: SHANTAL GARCIA Sent: 02/20/23 08:38:24 AM EST Subject: Discharge Summary Ready to View A summary regarding your recent visit is available in the Documents section of your Health Record. Normal [facility] .Auto Diff 02-19-2023 Auto [place] % 15 % High 03-07 [facility] Comment on above: Performed By: #### 2 [id number], [id number], 34091937, 5798838971, 0122852084, 8559092, [id number] ####[facility] (DEFAULT)[address] [place] [address] 38817 Baso Abs# 0.0 x10 Normal 0.0-0.2 [facility] Comment on above: Performed By: #### 2 [id number], [id number], 82434404, 2805184273, 3997167236, 7029413, 7684995448 ####[facility] (DEFAULT)[address] [place] [address]4537 Basophils/100 WBC (Bld) 0.7 % Normal 0.2-2.0 [facility] Comment on above: Performed By: #### 2 [id number], 0690871363, 86446116, 7504511529, 5184539010, 6614292, 7665779508 ####[facility] (DEFAULT)[address] [place] [address]34 Eos Abs# 0.0 x10 Normal 0.0-0.4 [facility] Comment on above: Performed By: #### 2 [id number], 7079402162, 02075418, 1559129949, 6921294160, 1348526, 9114315286 ####[facility] (DEFAULT)[address] [place] [address]186 Eosinophils/100 WBC (Bld) 0.0 % Low 0.9-4.0 [facility] Comment on above: Performed By: #### 2 [id number], 4575220383, 84741138, 0268835485, 9856955473, 1399368, 6273095787 ####[facility] (DEFAULT)[address] [place] [address]4496 Lymph Abs# 0.5 x10 Low 1.3-2.9 [facility] Comment on above: Performed By: #### 2 [id number], 7226448762, 41661084, 3834907373, 1927942335, 5087424, 5204747915 ####[facility] (DEFAULT)[address] [place] [address] 01497 Lymphocytes/100 WBC (Bld) 8 % Low 14-48 [facility] Comment on above: Performed By: #### 2 [id number], 7034978404, 62397836, 3379764829, 2496060529, 6645063, 4287145569 ####[facility] (DEFAULT)[address] [place] [address] Bingham Abs# 0.9 x10 High 0.0-0.8 [facility] Comment on above: Performed By: #### 2 [id number], 8478986156, 39398767, 5638287650, 0911095855, 8138655, 6558733015 ####[facility] (DEFAULT)[address] [place] [address]6461 Neut Abs# 4.6 x10 Normal 1.5-9.2 [facility] Comment on above: Performed By: #### 2 [id number], 8483664985, 24626959, 6310620856, 5589734121, 1844747, 9954416442 ####[facility] (DEFAULT)[address] [place] [address]3293 Neutrophils/100 WBC (Bld) 76 % Normal 44-88 [facility] Comment on above: Performed By: #### 2 [id number], 0439061925, 82861120, 1349142194, 8969874868, 1668662, 2226658345 ####[facility] (DEFAULT)[address] [place] [address] 56834 CBC w/ Auto Diffon 3 Erythrocyte distribution width (RBC) [Ratio] 12.9 % Normal 11.5-15.0 [facility] Comment on above: Performed By: #### 2 [id number], 7351420329, 85451021, 2657229159, 2881028624, 5598986, 4465775781 ####[facility] (DEFAULT)[address] [place] [address] Hematocrit (Bld) [Volume fraction] 39.2 % Normal 33.7-40.4 [facility] Comment on above: Performed By: #### 2 [id number], 4143955830, 92084804, 1479389599, 0707535712, 7345564, 7606346191 ####[facility] (DEFAULT)[address] [place] [address] Hemoglobin (Bld) [Mass/Vol] 13.4 g/dL Normal 11.3-15.9 [facility] Comment on above: Performed By: #### 2 [id number], 4371796155, 50947091, 7316778522, 2283268676, 4996995, 8953363369 ####[facility] (DEFAULT)[address] [place] [address] Man Diff? Auto Invalid Interpretation Code [facility] Comment on above: Performed By: #### 2 [id number], 7469940700, 41952590, 8821971207, 2773809689, 5568250, 7054680508 ####[facility] (DEFAULT)[address] [place] [address] MCH (RBC) [Entitic mass] 30 pg Normal 24-34 [facility] Comment on above: Performed By: #### 2 536557117, 6678206894, 60282867, 9486315479, 4387449756, 8234401, 7073987457 ####[facility] (DEFAULT)[address] [place] [address] MCHC (RBC) [Mass/Vol] 34 g/dL Normal 26-37 [facility] Comment on above: Performed By: #### 2 [id number], 1989817665, 80570135, 3544352820, 7259311726, 0729197, 1219818870 ####[facility] (DEFAULT)[address] [place] [address] 18491 MCV (RBC) [Entitic vol] 88 fL Normal 81-100 [facility] Comment on above: Performed By: #### 2 362983296, 4700481714, 35910900, 1407968927, 3060829681, 2883092, 1492220750 ####[facility] (DEFAULT)[address] [place] [address] 41194 Platelet 184 x10 Normal 138-427 [facility] Comment on above: Performed By: #### 2 611192570, 7769492157, 75238497, 1653061274, 8637645275, 8522392, 1329381069 ####[facility] (DEFAULT)[address] [place] [address] 14898 Platelet mean volume (Bld) [Entitic vol] 9.3 fL Normal 6.3-10.2 [facility] Comment on above: Performed By: #### 2 987617584, 3922242794, 28153560, 1758709686, 6695073241, 4554132, 3308699717 ####[facility] (DEFAULT)[address] [place] [address] 50940 RBC 4.47 x10 Normal 3.70-5.30 [facility] Comment on above: Performed By: #### 2 956576133, 1099012767, 88357120, 9091843420, 9698636934, 7532916, 7753157625 ####[facility] (DEFAULT)[address] [place] [address] 91850 WBC 6.1 x10 Normal 3.5-10.5 [facility] Comment on above: Performed By: #### 2 [id number], 8206542993, 83441699, 0350751301, 5682881261, 4447655, 8039932141 ####[facility] (DEFAULT)[address] [place] [address] 22304 CMP Standardon 02-19-2023 eGFR Non AA >60 Invalid Interpretation Code [facility] Comment on above: Performed By: #### 2 [id number], 8222232225, 70905108, 6709663768, 6490976860, 3662123, 6115357292 ####[facility] (DEFAULT)[address] [place] [address] 94540 eGFR AA >60 Invalid Interpretation Code [facility] Comment on above: Performed By: #### 2 [id number], 0417163519, 73711576, 9970124315, 6762441501, 1176080, 2493967702 ####[facility] (DEFAULT)[address] [place] [address] 42474 Albumin [Mass/Vol] 4.0 g/dL Normal 3.5-5.0 [facility] Comment on above: Performed By: #### 2 [id number], 6682447851, 88588214, 9209205542, 7170976206, 8747430, 5703886479 ####[facility] (DEFAULT)[address] [place] [address] Albumin/Globulin [Mass ratio] 1.1 {ratio} Low 1.4-2.6 [facility] Comment on above: Performed By: #### 2 [id number], 6078320382, 89407603, 8488680169, 5255748328, 2226075, 5358599415 ####[facility] (DEFAULT)[address] [place] [address] 10414 Alk Phos 68 IU/L Normal 32-91 [facility] Comment on above: Performed By: #### 2 760115849, 5722372789, 03726000, 7486015113, 2909366471, 6301230, 6352274405 ####[facility] (DEFAULT)[address] [place] [address] 25340 ALT [Catalytic activity/Vol] 25.0 U/L Normal 14.0-54.0 [facility] Comment on above: Performed By: #### 2 940332585, 8415389386, 23171168, 0403016508, 1353402278, 6488072, 8564385876 ####[facility] (DEFAULT)[address] [place] [address] 08911 Anion gap [Moles/Vol] 12.5 mmol/L Normal 5.0-19.0 [facility] Comment on above: Performed By: #### 2 520598505, 0876179847, 09421880, 5662038385, 3435456373, 0455004, 3270727947 ####[facility] (DEFAULT)[address] [place] [address] 15989 AST [Catalytic activity/Vol] 39 U/L Normal 15-41 [facility] Comment on above: Performed By: #### 2 699834807, 4842153077, 29625289, 0359599730, 8770533183, 4660399, 8091991456 ####[facility] (DEFAULT)[address] [place] [address] Bili Total 0.4 mg/dL Normal 0.3-1.2 [facility] Comment on above: Performed By: #### 2 552428228, 0935277606, 31821020, 0509057549, 0154788114, 0045569, 2661845295 ####[facility] (DEFAULT)[address] [place] [address] 04446 Calcium [Mass/Vol] 8.8 mg/dL Low 8.9-10.3 [facility] Comment on above: Performed By: #### 2 414752929, 6171942327, 50263139, 5683900050, 2231246972, 5477785, 6824627367 ####[facility] (DEFAULT)[address] [place] [address] 33338 Chloride [Moles/Vol] 105 mmol/L Normal 101-111 [facility] Comment on above: Performed By: #### 2 353930238, 9794602264, 04299686, 3993787412, 8277160338, 9528351, 7868450157 ####[facility] (DEFAULT)[address] [place] [address] 22752 CO2 [Moles/Vol] 20 mmol/L Low 21-32 [facility] Comment on above: Performed By: #### 2 386213195, 6920496110, 97339577, 5657296181, 4282549113, 6610872, 4187921188 ####[facility] (DEFAULT)[address] [place] [address] 25491 Creatinine [Mass/Vol] 0.52 mg/dL Low 0.60-1.30 [facility] Comment on above: Performed By: #### 2 735029169, 9484743289, 80422368, 8825153331, 6240605734, 7912381, 2660642652 ####[facility] (DEFAULT)[address] [place] [address] 10017 Globulin (S) [Mass/Vol] 3.4 g/dL Normal 1.5-4.3 [facility] Comment on above: Performed By: #### 2 053042779, 5350089776, 50170950, 6085530809, 0046928728, 6871751, 1230986476 ####[facility] (DEFAULT)[address] [place] [address] 83399 Glucose [Mass/Vol] 92.0 mg/dL Normal 74.0-118.0 [facility] Comment on above: Performed By: #### 2 165584797, 9758196745, 98115226, 1634485415, 1782334666, 8713892, 7930524770 ####[facility] (DEFAULT)[address] [place] [address] 15693 Osmolality 266 mOsm/L Invalid Interpretation Code [facility] Comment on above: Performed By: #### 2 997771875, 3638734819, 47594879, 5522922494, 0141153780, 7101460, 4050840608 ####[facility] (DEFAULT)[address] [place] [address] 92643 Potassium [Moles/Vol] 3.5 mmol/L Low 3.6-5.1 [facility] Comment on above: Performed By: #### 2 537067266, 1114173431, 92276261, 3520824361, 9924615972, 5341111, 2649732497 ####[facility] (DEFAULT)[address] [place] [address] 17487 Protein [Mass/Vol] 7.4 g/dL Normal 6.5-8.1 [facility] Comment on above: Performed By: #### 2 484183342, 8943402668, 43726962, 6862604399, 0771320936, 4852101, 2607247778 ####[facility] (DEFAULT)[address] [place] [address] 36743 Sodium [Moles/Vol] 134.0 mmol/L Low 136.0-144.0 [facility] Comment on above: Performed By: #### 2 167858431, 1593285392, 28257722, 7778858588, 7389150604, 7180969, 4231861724 ####[facility] (DEFAULT)[address] [place] [address] 93293 Urea nitrogen [Mass/Vol] 9 mg/dL Normal 8-26 [facility] Comment on above: Performed By: #### 2 265121391, 6516547572, 60020591, 7619316713, 1033229946, 4026862, 5460469044 ####[facility] (DEFAULT)[address] [place] [address] 60325 Urea nitrogen/Creatinin e [Mass ratio] 17.3 mg/mg High 4.6-16.2 [facility] Comment on above: Performed By: #### 2 [id number], 6227214918, 38577692, 6291857502, 6859492735, 9973053, 2053445656 ####[facility] (DEFAULT)[address] [place] [address] Abdomen/Pelvis w/ Contras ton 02-19-2023 CT Abdomen/Pelvis w/ Contrast CLINICAL HISTORY: Right lower quadrant pain, nausea and vomiting since yesterday. COMPARISON: None available. TECHNIQUE: Multiple contiguous axial images of the abdomen and pelvis were obtained following intravenous administration of 100 mL Omnipaque 350 contrast. Multiplanar reconstructions were acquired at the CT console. All CT scans at this facility use dose modulation, iterative reconstruction, and/or weight based dosing when appropriate to reduce radiation dose to as low as reasonably achievable. FINDINGS: LIVER: No suspicious lesion. BILIARY: The gallbladder is unremarkable. No abnormal biliary ductal dilatation. PANCREAS: No mass or abnormal duct dilation. SPLEEN: No enlargement or focal lesion. ADRENALS: No mass or enlargement. KIDNEYS: No mass, hydronephrosis, or calculi. BOWEL/MESENTERY: No abnormal dilatation or bowel wall thickening. Normal appendix. AORTA/VASCULAR: No aneurysm or dissection. RETROPERITONEUM: No mass or inflammatory changes. LYMPH NODES: No pathologically enlarged lymph nodes. PELVIS: No mass. Pelvic organs appropriate for patient age. BONES AND SOFT TISSUES: Nothing acute. LOWER THORAX: Noncontributory. IMPRESSION: No acute or significant intra-abdominal process identified Final Signed (Electronic Signature): Miki Francisco MD 02/20/23 8:41 am Technologist: SUSANNAH Farooq [facility] ED Clinical Summaryon 2022 ED Clinical Summary [facility] ? Urgent Care [address] [place], [place] [address] Clinical Summary PERSON INFORMATION Name: SHANTAL GARCIA Age: 42 Years Sex: FEMALE : 1980 MRN: Acct#: Visit Reason: Fever; UC - Cough; Body aches; VOMITING, COUGH, BODY ACHES Arrival: 02/19/2023 16:41:39 Discharge: 02/19/2023 17:55:00 LOS: 000 01:14 Check In: 02/19/2023 16:41:39 Checkout: 02/19/2023 17:55:00 Address: [address] [place], [place] [address] PCP: JIMMIE TOMAS PROVIDER INFORMATION Provider Role Assigned Unassigned JAMEY SUN ED PA 02/19/2023 16:42:57 Ivory Berrios ED Nurse 02/19/2023 16:43:52 VITALS INFORMATION Vital Sign Triage Latest Temperature Tympanic Temperature Temporal Artery Pulse Rate O2 Sat Respiratory Rate Blood Pressure /60 mmHg /60 mmHg MEDICAL INFORMATION Medications Given: Medication Dose Route ondansetron 4 mg Oral Allergy Information: sulfamethoxazole PHYSICIAN DOCUMENTATION DISCHARGE INFORMATION: Discharge Disposition: Home Discharge Location: Home PATIENT EDUCATION INFORMATION Instructions: Nausea and Vomiting, Adult; Vomiting, Adult Follow-Up: With: Address: [place]: JIMMIE TOMAS [address] [place] [address] Business (1) Within 2 to 4 days Comments: Continue with oral Zofran for any nausea. Continue Tylenol for aches and pains. If you are having increasing abdominal pains, fevers intractable vomiting you need further evaluation the emergency department. You also be getting Zofran for nausea as discussed. DIAGNOSIS: Body aches; Cough; Vomiting Patient Understands: Yes - Patient/family/caregiv er verbalizes understanding of instructions given Comment: Normal [facility] ED Note - Physicianon 2022 ED Note - Physician Patient: SHANTAL GARCIA Age: 42 years Sex: FEMALE : 1980 Associated Diagnoses: Viral illness; Enteritis Author: Kvng Veras DO Basic Information Additional information: Chief Complaint from Nursing Triage Note : Chief Complaint 02/19/2023 18:23 EST Chief Complaint Pt states that she has been sick since Friday. Pt was seen in UC, neg for COVID, Flu. CXR and UA neg. Pt states that she has RLQ pain, vomiting and some diarrhea. Last emesis was about 1h ago, Last diarrhea was earlier today 02/19/2023 16:56 EST Chief Complaint since Friday, cough, body aches, fever and nausea . Health Status Allergies: Allergic Reactions (Selected) Severity Not Documented Sulfamethoxazole- No reactions were documented.. Medications: (Selected) Prescriptions Prescribed Zoloft 50 mg oral tablet: 50 mg, 1 tab(s), PO, Daily, 90 tab(s), 3 Refill(s) ondansetron 4 mg oral tablet, disintegratin mg = 1 tab(s), Oral, BID, PRN: Nausea, 6 tab(s), 0 Refill(s) ondansetron 4 mg oral tablet, disintegratin mg = 1 tab(s), Oral, q8hr, PRN: as needed for nausea/vomiting, 10 tab(s), 0 Refill(s) Documented Medications Documented Aviane: 1 tab(s), PO, Daily, 0 Refill(s). Past Medical/ Family/ Social History Medical history: No active or resolved past medical history items have been selected or recorded.. Surgical history: No active procedure history items have been selected or recorded.. Family history: Cancer Father Comments: 04/30/2017 13:02 Barak Willson skin Aneurysm Father Stroke Grandfather (Maternal) Heart attack Grandfather (Maternal) Tachycardia, paroxysmal ventricular Mother Comments: 04/30/2017 13:02 Barak Willson corrected with ablation . Social history: Social & Psychosocial Habits Substance Use 02/02/2022 Substance use: Never Tobacco 07/10/2022 Smoking tobacco use: Former tobacco user 02/19/2023 Smoking tobacco use: Former tobacco user Number used per day: quit about 10yrs ago Comment: quit - 02/19/2023 18:30 - Vonnie Otoole RN Electronic Cigarette/Vaping 07/10/2022 Electronic Cigarette Use: Never . Problem list: Active Problems (6) Anxiety Bicornate uterus Family history of intracranial aneurysms Family history of paroxysmal supraventricular tachycardia Premature atrial contractions Schamberg's disease . Physical Examination Vital Signs Vital Signs 02/19/2023 18:58 EST Peripheral Pulse Rate 80 bpm Respiratory Rate 18 br/min SpO2 100 % 02/19/2023 18:46 EST Peripheral Pulse Rate 86 bpm Respiratory Rate 18 br/min Systolic Blood Pressure 125 mmHg Diastolic Blood Pressure 83 mmHg SpO2 98 % 02/19/2023 18:23 EST Temperature Oral 36.9 DegC Peripheral Pulse Rate 86 bpm Respiratory Rate 18 br/min Systolic Blood Pressure 131 mmHg Diastolic Blood Pressure 71 mmHg SpO2 98 % Oxygen Therapy Room air 02/19/2023 16:56 EST Temperature Temporal 37.3 DegC Peripheral Pulse Rate 76 bpm Respiratory Rate 16 br/min Systolic Blood Pressure 110 mmHg Diastolic Blood Pressure 60 mmHg BP Method Manual . Measurements 02/19/2023 18:23 EST Height 172.72 cm Weight 64.41 kg Weight Dosing 64.410 kg Body Mass Index Measured 21.59 kg/m2 02/19/2023 16:56 EST Height 172 cm Weight 64.41 kg Weight Dosing 64.410 kg Body Mass Index Measured 21.77 kg/m2 BSA Measured 1.75 m2 . Medical Decision Making Orders Launch Orders Miscellaneous Request: Excuse from Work/School (Order): 02/19/2023 21:46 EST, No work , , 21 FEB 2023, Launch Orders Pharmacy: [facility] Tab ondansetron 4 mg ODT Tab (Order): 1 packet(s), Oral, Once. Reexamination/ Reevaluation Vital signs Patient was endorsed from the care of Dr. Bradshaw, to this current position, and after CAT scan, the patient states she is feeling better after the medications provided in the emergency room. She states she just felt miserable with this illness, several days of vomiting and diarrhea, but now she is got some right lower quadrant pain which is why she came here to the emergency room. After receiving medications here in the emergency room, she states she is feeling much better, her abdomen is soft without discomfort skin is warm and dry, results were provided to her for her laboratory data as well as her CT, and she was invited to return as necessary. Impression and Plan Diagnosis Viral illness ([id number] B34.9, Discharge, Medical) Enteritis ([id number] K52.9, Discharge, Medical) Plan Condition: Improved, Abd soft, no mass, not tender//Omley. Disposition: Discharged: time 02/19/2023 21:46:00. Patient was given the following educational materials: How to Take Your Blood Pressure, Abdominal Pain, Adult, Viral Gastroenteritis, Adult, [id number]. Follow up with: JIMMIE TOMAS In 2 days 02/21/2023, only if needed Take Zofran as needed for nausea Use Tylenol and Motrin every 8 hours as needed for pain relief Drink plenty of fluids with el (more content not included)... [facility] ED Note-Nursingon 02-19-2023 ED Note-Nursing Pt was seen in wi th complaints of being sick since Friday with nausea/vomiting and abdominal pain (RLQ) Pt was given Zofran ODT in , tested negative for COVID, Flu and preg. Pt states that her CXR was neg but PA said that she was dehydrated. Pt states that he last emesis was about 1h prior to arrival to ER and last diarrhea stool was earlier today. [facility] ED Note-Nursing PT. C/O of abdominal pain, nausea and vomiting that started yesterday. PT. last vomited prior to arrival. PT. was seen in U/C where they did a urine, Covid, and x ray. Pt. is A&OX 4. PT. has a steady gait. -05 Normal [facility] ED Patient Summaryon 023 ED Patient Summary [facility] ? Urgent Care [address] [place] [address] PATIENT DISCHARGE INSTRUCTIONS Patient Information Name: SHANTAL GARCIA Age: 42 Years Date of : 1980 Reason For Visit: Fever; UC - Cough; Body aches; VOMITING, COUGH, BODY ACHES Arrival Time: 02/19/2023 16:41:39 Primary Care Physician: JIMMIE TOMAS Attending Physician: JAMEY SUN Comment: Patient Education With: Address: When: JIMMIE TOMAS [address] [place] [address] Business (1) Within 2 to 4 days Comments: Continue with oral Zofran for any nausea. Continue Tylenol for aches and pains. If you are having increasing abdominal pains, fevers intractable vomiting you need further evaluation the emergency department. You also be getting Zofran for nausea as discussed. Nausea and Vomiting, Adult Nausea is the feeling that you have an upset stomach or that you are about to vomit. As nausea gets worse, it can lead to vomiting. Vomiting is when stomach contents forcefully come out of your mouth as a result of nausea. Vomiting can make you feel weak and cause you to become dehydrated. Dehydration can make you feel tired and thirsty, cause you to have a dry mouth, and decrease how often you urinate. Older adults and people with other diseases or a weak disease-fighting system (immune system) are at higher risk for dehydration. It is important to treat your nausea and vomiting as told by your health care provider. Follow these instructions at home: Watch your symptoms for any changes. Tell your health care provider about them. Eating and drinking ? Take an oral rehydration solution (ORS). This is a drink that is sold at pharmacies and retail stores. ? Drink clear fluids slowly and in small amounts as you are able. Clear fluids include water, ice chips, low-calorie sports drinks, and fruit juice that has water added (diluted fruit juice). ? Eat bland, zleu-kh-dlgiyb foods in small amounts as you are able. These foods include bananas, applesauce, rice, lean meats, toast, and crackers. ? Avoid fluids that contain a lot of sugar or caffeine, such as energy drinks, sports drinks, and soda. ? Avoid alcohol. ? Avoid spicy or fatty foods. General instructions ? Take ymrh-wnz-cfngceq and prescription medicines only as told by your health care provider. ? Drink enough fluid to keep your urine pale yellow. ? Wash your hands often using soap and water for at least 20 seconds. If soap and water are not available, use hand cafe site attendant. ? Make sure that everyone in your household washes their hands well and often. ? Rest at home while you recover. ? Watch your condition for any changes. ? Take slow and deep breaths when you feel nauseous. ? Keep all follow-up visits. This is important. Contact a health care provider if: ? Your symptoms get worse. ? You have new symptoms. ? You have a fever. ? You cannot drink fluids without vomiting. ? Your nausea does not go away after 2 days. ? You feel light-headed or dizzy. ? You have a headache. ? You have muscle cramps. ? You have a rash. ? You have pain while urinating. Get help right away if: ? You have pain in your chest, neck, arm, or jaw. ? You feel extremely weak or you faint. ? You have persistent vomiting. ? You have vomit that is bright red or looks like black coffee grounds. ? You have bloody or black stools (feces) or stools that look like tar. ? You have a severe headache, a stiff neck, or both. ? You have severe pain, cramping, or bloating in your abdomen. ? You have difficulty breathing, or you are breathing very quickly. ? Your heart is beating very quickly. ? Your skin feels cold and clammy. ? You feel confused. ? You have signs of dehydration, such as: ? Dark urine, very little urine, or no urine. ? Cracked lips. ? Dry mouth. ? Sunken eyes. ? Sleepiness. ? Weakness. These symptoms may be an emergency. Get help right away. Call 911. ? Do not wait to see if the symptoms will go away. ? Do not drive yourself to the hospital. Summary ? Nausea is the feeling that you have an upset stomach or that you are about to vomit. As nausea gets worse, it can lead to vomiting. Vomiting can make you feel weak and cause you to become dehydrated. ? Follow instructions from your health care provider about eating and drinking to prevent dehydration. ? Take vbiv-lsu-zoxwbgd and prescription medicines only as told by your health care provider. ? Contact your health care provider if your symptoms get worse, or you have new symptoms. ? Keep all follow-up visits. This is important. This information is not intended to replace advice given to you by your health care provider. Make sure you discuss any questions you have with your health care provider. Document Revised: 08/17/2021 Document Revi (more content not included)... [facility] Extra Greenon 02-19-2023 Tube Collected Yes Invalid Interpretation Code [facility] Comment on above: Performed By: #### 2 [id number], [id number], [id number], [id number], [id number], [id number], [id number] #### [facility] (DEFAULT) [address] [place] [address] Performed By: #### 2 [id number], [id number], [id number], [id number], [id number], [id number], [id number] ####[facility] (DEFAULT)[address] [place] [address] Test Urine 1on U Preg Negative [facility] Comment on above: Performed By: #### 1 [id number], [id number], [id number], [id number] ####[facility] (DEFAULT)[address] [place] [address] U Preg Internal Control Pass [facility] Comment on above: Performed By: #### 1 [id number], [id number], [id number], [id number] ####[facility] (DEFAULT)[address] [place] [address] UA Jtchk6mp 02-19-2023 UA Bacteria 1+ [facility] Comment on above: Order Comment: Urina lysis Microscopic order added on by Discern Expert Rules system. Performed By: #### 1 [id number], [id number], [id number], [id number] ####[facility] (DEFAULT)[address] [place] [address] UA Mucous 1+ [facility] Comment on above: Order Comment: Urina lysis Microscopic order added on by Discern Expert Rules system. Performed By: #### 1 [id number], [id number], [id number], [id number] ####[facility] (DEFAULT)[address] [place] [address] UA RBC 5-10 [facility] Comment on above: Order Comment: Urina lysis Microscopic order added on by Discern Expert Rules system. Performed By: #### 1 [id number], [id number], [id number], [id number] ####[facility] (DEFAULT)[address] [place] [address] UA Squam Epi Few [facility] Comment on above: Order Comment: Urina lysis Microscopic order added on by MiserWare Expert Rules system. Performed By: #### 1 [id number], [id number], [id number], [id number] ####[facility] (DEFAULT)[address] [place] [address] UA WBC 3-5 [facility] Comment on above: Order Comment: Urina lysis Microscopic order added on by Miser[employer] Expert Rules system. Performed By: #### 1 [id number], [id number], [id number], [id number] ####[facility] (DEFAULT)[address] [place] [address] UA w Culture if Ind Standard on 02-19-2023 Breakpoint UA [facility] Comment on above: Performed By: #### 1 [id number], [id number], [id number], [id number] ####[facility] (DEFAULT)[address] [place] [address] Color (U) Yellow [facility] Comment on above: Performed By: #### 1 [id number], [id number], [id number], [id number] ####[facility] (DEFAULT)[address] [place] [address] Culture? Indicated Invalid Interpretation Code [facility] Comment on above: Result Comment: Resu lt created by rule GL_MAGR_ADD_UA_CULT Performed By: #### 1 [id number], [id number], [id number], [id number] ####[facility] (DEFAULT)[address] [place] [address] Glucose (U) [Mass/Vol] Negative Normal [facility] Comment on above: Performed By: #### 1 [id number], [id number], [id number], [id number] ####[facility] (DEFAULT)[address] [place] [address] Ketones Ql (U) >=80 Normal [facility] Comment on above: Performed By: #### 1 [id number], [id number], [id number], [id number] ####[facility] (DEFAULT)[address] [place] [address] Micro? Indicated Invalid Interpretation Code [facility] Comment on above: Result Comment: Resu lt created by rule GL_MAGR_ADD_UA_MICRO Result created by rule GL_MAGR_ADD_UA_MICRO Performed By: #### 1 [id number], [id number], [id number], [id number] ####[facility] (DEFAULT)[address] [place] [address] UA Bilirubin SMALL Abnormal [facility] Comment on above: Performed By: #### 1 [id number], [id number], [id number], [id number] ####[facility] (DEFAULT)[address] [place] [address] UA Blood LARGE Abnormal NEGATIVE [facility] Comment on above: Performed By: #### 1 [id number], [id number], [id number], [id number] ####[facility] (DEFAULT)[address] [place] [address] UA Clarity SL CLOUDY Abnormal CLEAR [facility] Comment on above: Performed By: #### 1 [id number], [id number], [id number], [id number] ####[facility] (DEFAULT)[address] [place] [address] UA Leuk Est Negative Normal NEGATIVE [facility] Comment on above: Performed By: #### 1 [id number], [id number], [id number], [id number] ####[facility] (DEFAULT)[address] [place] [address] UA Nitrite Negative Normal NEGATIVE [facility] Comment on above: Performed By: #### 1 [id number], [id number], [id number], [id number] ####[facility] (DEFAULT)[address] [place] [address] UA pH 6.0 Normal 5-8 [facility] Comment on above: Performed By: #### 1 [id number], 7474759, [id number], [id number] ####[facility] (DEFAULT)[address] [place] [address] UA Protein 30 Abnormal NEGATIVE [facility] Comment on above: Performed By: #### 1 [id number], [id number], [id number], [id number] ####[facility] (DEFAULT)[address] [place] [address] UA Spec Grav >=1.030 Normal 1.001-1.035 [facility] Comment on above: Performed By: #### 1 [id number], 8842514, [id number], [id number] ####[facility] (DEFAULT)[address] [place] [address] UA Urobilinogen 0.2 mg/dL Normal 0.2-1.0 [facility] Comment on above: Performed By: #### 1 [id number], [id number], 358562919, [id number] ####[facility] (DEFAULT)[address] [place] [address] Urine Source Clean Catch Normal [facility] Comment on above: Performed By: #### 1 [id number], [id number], [id number], [id number] ####[facility] (DEFAULT)[address] [place], [place] [address] Urgent Care Note- Provideron 02-19-2023 Urgent Care Note- Provider Patient: SHANTAL GARCIA Age: 42 years Sex: FEMALE : 1980 Associated Diagnoses: Vomiting; Cough; Body aches Author: JAMEY SUN Subjective Patient is a 42-year-old female presenting to urgent care with complaint of bodyaches, mild cough, fever, vomiting, abdominal achiness. Patient indicates that she is feeling body aches and mild cough over the last couple days. States that she has been vomiting since yesterday evening not able to keep any food or fluids down. Patient also states she is having abdominal achiness in her lower abdomen. States last menstrual cycle was 1 week ago was normal for her, does not believe any chance of . Denies any diarrhea. Patient states last dose of Tylenol was approximately 7 hours ago. Indicates she had a temperature of 101 at home. Health Status Allergies: Allergic Reactions (Selected) Severity Not Documented Sulfamethoxazole- No reactions were documented. Problem list: All Problems (Selected) Anxiety / SNOMED CT 84074761 / Confirmed Schamberg's disease / SNOMED CT 385595044 / Confirmed Premature atrial contractions / SNOMED CT 988793214 / Confirmed Family history of paroxysmal supraventricular tachycardia / SNOMED CT 9105744391 / Confirmed Family history of intracranial aneurysms / SNOMED CT 6423915904 / Confirmed Bicornate uterus / SNOMED CT 44839945 / Confirmed Objective CONST: -Well-developed well-nourished. -Acute distress: No -Vitals: reviewed. SKIN: -Gross abnormalities: No EYES: -EOM intact, NAN: -Sclera conjunctiva: Unremarkable. ENT: -Posterior pharynx pink and moist uvula midline tolerating oral secretions without any problems. No tripoding or hot potato voice appreciated. NECK: -Supple (cazp-kq-ezelh): non-tender. CARD: -Rate and rhythm: Regular RESP: -Respiratory effort and chest excursion with respirations: Normal -Breath sounds equal bilaterally: Clear -Wheezes: No -Rales: No BACK: -Signs of pain with movement: No ABD: -Distended: No -Deep palpation: Mild achiness right lower quadrant, no guarding or rebound tenderness, abdomen is soft EXT: Gross appearance and use of all four extremities: Unremarkable NEURO: -Patient: alert -Oriented to: person, place and time. -Appearance and judgment: appropriate. Results Review Results review Lab results 02/19/2023 16:57 EST UA Color Yellow UA Clarity SL CLOUDY UA Glucose NEGATIVE UA Ketones >=80 UA Spec Grav >=1.030 UA Blood LARGE UA pH 6.0 UA Protein 30 UA Urobilinogen 0.2 mg/dL UA Nitrite NEGATIVE UA Leuk Est NEGATIVE UA Bilirubin SMALL Urine Source Clean Catch Micro? Indicated Culture? Indicated UA WBC 3-5 UA RBC 5-10 UA Squam Epi Few UA Bacteria 1+ UA Mucous 1+ U Preg Negative 02/19/2023 16:55 EST Employed in healthcare? No Symptomatic as defined by CDC? No Date of onset (Lab) 02/16/2023 Hospitalized due to COVID-19? No In ICU? No Group care resident? No status? Not SARS-CoV-2 (COVID-19) Ag (BD Veritor) Not Detected Influenza A POCT Negative Influenza B POCT Negative Patient received oral Zofran, reexamination approximately 20 minutes later Impression and Plan Assessment and Plan: Diagnosis: Vomiting (RNR06-VL R11.10), Cough (IRA03-PI R05.9), Body aches (TFS53-QV R52). Orders Orders Patient Care: Rapid CoV-2 (COVID-19) Antigen/ Flu A&B POC RE (Order): 02/19/2023 16:43 EST, Once. Orders Pharmacy: ondansetron (Order): 4 mg, Oral, Once. Orders Radiology: XR Chest 2 Views (Order): 02/19/2023 17:20 EST Stat, cough, Allow Modification Per Radiologist, Transport Mode: Cart. Orders Pharmacy: ondansetron 4 mg oral tablet, disintegrating (Prescribe): 4 mg = 1 tab(s), Oral, BID, PRN: Nausea, 6 tab(s), 0 Refill(s) Miscellaneous Request: Excuse from Work/School (Order): 02/19/2023 17:38 EST, Please excuse from work 02/19 and 02/20. . I discussed COVID influenza swab along with urinalysis, patient was in agreement. COVID and influenza are negative. Patient's urinalysis is shows negative , large amount of blood, greater than 80 ketones, specific gravity is greater than 1.03, negative nitrites, negative leukocyte esterase, 3-5 white blood cells, 1+ bacteria and few squamous epithelial cells, not indicating any significant infection. Patient denies any pain with urination. Discussed chest x-ray for this patient secondary to cough and fever, patient was in agreement. Chest x-ray shows no acute consolidation or infiltrate as interpreted by me in the urgent care. I discussed patient's symptoms of abdominal discomfort along with vomiting fever body aches. I indicated to the patient that I cannot tell if she does not have any other issues going on secondary to the right lower quadrant abdominal discomforts. We discussed other possibilities such as appendicitis, issues with ovaries, intra-abdominal infections. I recommended further evaluation in the emergency department secon (more content not included)... Normal [facility] [place] 023 Urgent Care Record [facility] ? Urgent Care [address] [place] [address] PATIENT DISCHARGE INSTRUCTIONS Patient Information Name: SHANTAL GARCIA Age: 42 Years Date of : 1980 Reason For Visit: Fever; UC - Cough; Body aches; VOMITING, COUGH, BODY ACHES Arrival Time: 02/19/2023 16:41:39 Primary Care Physician: JIMMIE TOMAS Attending Physician: JAMEY SUN Comment: Visit Diagnosis: Diagnoses This Visit Body aches (R52) Body aches ([id number]) Cough (R05.9) Fever ([id number]) UC - Cough ([id number]) Vomiting (R11.10) If you received any narcotics, sedation, or any other medication that causes drowsiness for the next 24 hours, unless otherwise directed: ? Do not drive a car. ? Do not operate machinery such as power tools, lawn mowers, drills, sewing machines, or stoves ? Avoid alcoholic beverages and drugs for allergies, nerves, or sleep ? Do not make important personal or business decisions or sign any legal documents With: Address: When: JIMMIE TOMAS [address] [place] [address] Business (1) Within 2 to 4 days Comments: Continue with oral Zofran for any nausea. Continue Tylenol for aches and pains. If you are having increasing abdominal pains, fevers intractable vomiting you need further evaluation the emergency department. You also be getting Zofran for nausea as discussed. Medication Information: The exam and treatment you received today in the [facility] were for an urgent problem and are not intended as complete care. It is important for you to follow up with a doctor, nurse practitioner, or physician?s assistant offset press operator for ongoing care. If your symptoms become worse or you do not improve as expected and you are unable to reach your usual health care provider, you should return to the Emergency Department, we are available 24 hours a day. For those patients who have received Radiology results, the interpretation of your X-ray as given to you by our Urgent Care physician is only a preliminary report. The Radiologist will review your films and if there is a change in the diagnosis you will be notified by phone. Please make sure you have provided a working phone number so we can reach you if necessary. In the event that you had a lab culture while you were a patient in the Urgent Care, you will be notified by phone if there is a need to change your antibiotic. Please make sure you have provided a working phone number so we can reach you if necessary. [facility] has provided you with a complete list of medications post discharge. Please inform your licensed mortgage loan officer/provider of your visit and for further instruction on these medications. Any specific questions regarding your chronic medications and dosages should be discussed with your primary care physician(s) and/or pharmacist. New Medications [id number], [address] [place] [address], [place] [id number], [phone] ondansetron (ondansetron 4 mg oral tablet, disintegrating) 1 tab(s) Oral (given by mouth) 2 times a day (scheduled) as needed Nausea. Refills: 0. Additional medications on your home medication list not specifically addressed. Please contact the ordering physician if you have questions about these medications. ethinyl estradiol-levonorgestr el (Aviane) 1 tab(s) Oral (given by mouth) every day. sertraline (Zoloft 50 mg oral tablet) 1 tab(s) Oral (given by mouth) every day. Refills: 3. Visit Information Allergies: Substance Reaction Symptoms Type Comments sulfamethoxazole Drug Vital Signs: Vitals and Measurements this Visit (last charted value for your 02/19/2023 visit) Vital Signs This Visit Temperature Temporal: 37.3 DegC Peripheral Pulse Rate: 76 bpm Respiratory Rate: 16 br/min Systolic Blood Pressure: 110 mmHg Diastolic Blood Pressure: 60 mmHg Blood Pressure Method: Manual Measurements This Visit Height/Length Measured: 172 cm Weight Measured: 64.41 kg Weight Dosin.410 kg Body Mass Index: 21.77 kg/m2 BSA Measured: 1.75 m2 Problems List: Problem Onset Comments Anxiety Bicornate uterus Family history of intracranial aneurysms Family history of paroxysmal supraventricular tachycardia Premature atrial contractions Schamberg's disease Patient Education Nausea and Vomiting, Adult Nausea is the feeling that you have an upset stomach or that you are about to vomit. As nausea gets worse, it can lead to vomiting. Vomiting is when stomach contents forcefully come out of your mouth as a result of nausea. Vomiting can make you feel weak and cause you to become dehydrated. Dehydration can make you feel tired and thirsty, cause you to have a dry mouth, and decrease how often you urinate. Older adults and people with other diseases or a weak disease-fighting system (immune system) are at higher risk for dehydration. It is important to t (more content not included)... [facility] XR Chest 2 Viewson 3 XR Chest 2 Views _Findings: Osseous structures intact. Cardiopericardial silhouette normal. Pulmonary vasculature normal. Lungs clear. Impression: No acute cardiopulmonary disease. Final Signed (Electronic Signature): SignerManfred MD 02/19/23 5:47 pm Technologist: JASPREET [facility] Coding Summaryon 07-18-2022 Coding Summary HTMLBase 64 OxqijzyzSXl9rEf+PGhlYW Q+QS2EHUIbR88afVXmrH3t C1HEFFfOUscqGEXPTEnIZo SpsoVrAX3xeGSsBVAy IC8+ET9wEDKcFhjhrRDhi3 I7iEI7J98auv4aGThwkCG3 AWFlFuZxxvsbk1ernBr3PP cuNmluOyBt PMEiqJ29GNS5oJ69Qd27zZ RvxVWsh8lxrLu3HnPfEFCh SZM6yGcdMHklp6RqTEHwN0 8tsUCit8R9 ZLBmrQmzsWObMxHdxYL0eR 7gOCnsqsdbb3wrvinjMte2 tj72oXOhe5J0jCK4Q1Tuqv I0IEJdvIMv UrzflBTChI2bmqxbq9ifvb nkZeOiYRArVXd7ZLh8OQMo iMgmPfOrHB04LZH1NXGuts HqF7KqHHSu hStuJyL8v0V4Wq9MG4GXKu gnM4PEXCBLJHxpcAJ+PC90 cw06Q3MwZlknKus8MQRgZU R4aYS0hK8d AAEaZZtrr6P8eHX6W4Diqz Lxnv2zu3xeVJWuRKlyC16g iNDia1P8UXVsrPI3NRSkwA tbErQnjC05 Oyc+MCBvxSfqp1KwQpeoi4 cjm3nefRu9PevyBNDdqbGz fAnjNMO3d1YoLd9lSGHgdT I6rVN9mZ6k SqZzVnD3STraF021DmQrnV YmEfkbR07xQ9UyeTR+PHRy Jrt0DUPwpJxhVA5oC1LqHJ RpbmctbGVm dTyoES5eRGBvmzieETKorI 7sRPCtV2v7KqGwYuL3CYya K8XqFDDvskakKt29oM6tSx NlHhT7RXzo C8AdduE2UBGvfVYdXQtgQI N4S27wp3X0ZWNzMPAzZZN9 lXY8rZ8pgVltbcowiVBbiW sgdmVydGlj WSyuMXhbQ516JIZztNodVj NvZGluZyBEYXRlOiAgMDUv MjUvMjAyMzwvdGQ+PHRkIH U2pWocLEKj zNSrBFooXq3nbSguySolOW 8eXWNlygvcNAIryL9sSWAx zPSrqIpmME1yZGRwsscak4 41WkOqLKD9 TDKkyRFgL6BpaZ8jWbUdAU LgNHQyL3QgcVXoWEkkD486 HXguImF5SJExcfKdF8BvUP FsaWduOiB0 w2W9Ln8Eo7GpnvpfT6UnbI GxFzLnFbcbQRk3D3CuAhrn dHI+OC06ZYBfYK43JXf3GX T8gGciAZgh KFZjO7ZbdC9dXwDaLCVrXI RkOyc+PHRhYmxlIHdpZHRo HEmyEUWzBrGdzSdgOG9bRu 9yZGVyLWNv jIarwSBfLiZtu4feSPWrYH bjPN5paZhmQ2XatHL5WDEe a8t8Xj36F17eW8KsjIV+PG IagTD2oQJ6 wE6bMvSnXiK4DUlaN481Zj AcrGDfEzqts8nta7muwWs5 HqM7WOZkbpUlcJqfBRW8r0 OySd66B41o IHdpZHRoPSIxNSUiIHZhbG zxce5dzI0dRt5+PGNvbCB3 wUG3sP9kTkYaGsV5SApdT3 49InRvcCIv Ciajm4loc6vonJs9JwEnUH YecjKaxSnrUQZ0n0VcBj27 O8TlmLfqb4EgQza4uy08zE Enk0L1yAN9 H8ZsTFKqcfhrsGYwsMhwLA 8eAHYouemfZEWtcX2xOGBi Y0c7HbUlIoG3UXhkG5Msiw B4GDZpyUZs GDYfrOIZcZ6iswsxr9myzy ldRwRnYIDoAKc1VFo6IVLa tOcxSwTzPND7SnZ7CZZ3bH SsuL4srDgu wcntrK6gMza+VYM6qRBgaX HHGA6iYxuieIG+PHRkIHN0 oUkeVYmdPXJvcU3dDXDwH9 m3ZbCaUlH5 ORtzF3OznzH8CCXllBIoPQ RsxZSYeW6oaddll2auyejx ZvNsDGAmOEk1UJh4BFYdlE duOiBsZWZ0 NrX3CLL0jWArzE4haPdktd zskC6kQnp+QmlydGggRGF0 BHk2T9GcIje9GHRkuNxzGQ 0ncGFkZGlu Th2etCwnuFggCM9eBIGdud msa708HmIqi1gfDVXkgCKp PIrtAAC7Q77ql7R6CIVbLH SsZNN5tNJ0 mU9brDuowfzksSCtgKxecn ZvoJhaJEcdLEdaP230ZSHr oTmlMyCiSLz9X1DsGzq0KK WgeHmmWZ5t jHUrNQxoNv9bcXxjqHkvDZ 8xGJNqovnke488MsFbj6cq WUSepZWjPTlnMEU9X09jn7 C9NYQfJEIj NNI1iQB0wQ6zoFnrgrggeL VmdDsgdmVydGljYWwtYWxp G072WTXnoCdpMaBsqVa8V2 FkSzu6VEDt lYqaSP0muNMyZPzaQu5exD uzoMzmVX3yBBCaxzbdn688 DmBlz5bqCASwcTJkDDsdOY X0A98bx9E2 XYMgPZBxJLF6cGY0rI2isP lnbjogbGVmdDsgdmVydGlj JEcmFLdmQ680HZJdqBecRy BhdGllbnQg OVtrQYa5U0HsDrtvlLH+PC 38DDCyGF99tWEhoJZqh5bn kPf0DtJwAWUrLUJ9tEmsMN kei8LwRONs Z71gvLTfm5I0IUKkiBlsiQ IkFsAsnJH0jO1iPWwgeomc j5oxlbrmAxcga8ihko20sT 62O02fGEbt ZHRoPSIzMCUiIHZhbGlnbj 3qzT6uWp5+POGpzAJ6lVP0 uU3nRPMgOsF3BNadY997Qn RvcCIvPjxj l1beq1hviSe3GgD9CMFamo CheUtnTAG0z5DfZn69B40s IHdpZHRoPSIyMCUiIHZhbG vnmk4fkG5q Ii8+JQFysJG8fWH4sU3aPv WpJgT3YOjaO887WtMpdOYf PlsyR67xE4EoaDA+PHRyPj w5IDZqbWjd TU2jgGHeQEshEy7vUEE5Rw NhYjRvJNceF9UhHKFyabmh ccphdLS7YEOjIECpyS03Vt 9udDogMTBw mJRJjB8qlgmhq5qkhcppCx DrYTIjKOn9KNw6KJZukUch SsTlRTI8LfQ5SCV6oOFywV 1hbGlnbjog zT8zK0PnATZpqtlyHy03kK 6uStQvLrZ6THryOqg+VEFM Xj3FQFYFZI1QNQKFFF94P3 BdKyi0NMRx jBrrBL4ybUClKZxzNm0utO powXumBW7pBJDwsbolJAFg vR7cUOAhsNNahVfgWN8eFS Mrnmtxt115 GvKdRHK3BDFyfBPtX6HfqO 1gWtJyKZOcLYAiX4UdpJKy VIbbC684UMzbBxH4TTNmaf ArR3SxGLRj cJmbBlS4h7E1Wr8jEz7jZf 5jAPbdXU49JO01lAEqm0R2 gUP3C6VzZHUnlllqbvywmU J8UAZrZMNm xK18sNUxAGjtGc5fa0Y4f8 34QWXzTUGslE87Nn8fvSfq OSVqvQABrT3goeocc6pedd ogIzAwMDAw FFn3HTq0KAJdwArvXiIpLC F2SyK5SKO4pCQckB5bcGrs jdfrvF2gDsl+NDAgWWVhcn H0J9AsZap2 RDIhkPpfJF1dsKEmYXtnEl 4enLamvDrwYS3yTJIdlyqk MTFfyP5eBHHkpXLxkAhiCE 4wNTBpbjtm w026IyLkZCN2QHVbdMGxX3 HyhE1nAtMbJOSyMGWqP9Aq uCKeRJdmW488INbnQtZ2LV QvwcBuX7Fy TPEzjBztPsO7u0N1Go1IZD 4PSFS8Y0LrImx2FIQsuUju RQ6cmOTkQRrlCm0etQbdeR gzCN4gZVLq kyvwUUJozO3mTCLkqZWiiN mhHL0jORAchngfx586PbLe AZF4ENLpyQOhG5LxaC7nBx AjMDAwMDAw D1TasKReIGxhF173QIjfAs D3MOAehwDaJ2UcRRZctHva VkO2a7A4Px5DTIdtsHJ+PC 90js93S5Xe UxyvAnt7DPVkTJI5gKR5eJ 1pYLXlQIvtp3L5aGJ1U5Dd tiNufc3jp9ctSXNdTMhnQ1 2fpFKyf5D2 RKCbaGX6MDNqqHwcGaWjvY 93Oyc+NBCjwVnoz6GvSwvn v1ioe3rzgEi7LzUhLIYcbf FsaWduPSJ0 t2PaNs89Y30lLVloQXHeBD PbPCAkXFTemOzibg5diO7d Ii8+PGJudCU6rEH8uV0jOf YbXpZ1IRwm H324SnPgiDFwYpwyo9vny2 nycGw2ZePcTERxihLgmLtk XSA0p9CcZm02Y0TyjNrda8 EdZpr1gq32 aMRya6K9gBF9P1LjCAIwrd iptJAjfNctNJ8rPHCkvqkq OJUovH7zPFHiJ1s2MlPzTr I9DNztQ0Jn njF1KLLhfKWeMFIkfNQZpG 0tykbhz4pzjcbbWsAdNFPg KWj1BTi1ALIgzHlnNrEiWA K8BuD9YJG5 iZUqjA4gaHxgadvptH8aMb c+BJw5e9zydMVxSZ2xtCW6 PB74TY98cOAds7D0aRM5P6 BhZGRpbmct rlmgnFF7GUQdQUVhhJ09Gm 2dvIyiXx3qVINwDPB7CNUt lOUuJ4TcfK4xNgBbLHYySR DxR1HkhRTm WOnaB397SHlzDiZ8IELmbn YbJ2EhURUmhJaxOiK2r6M4 Bz2TWJ64JK34MH58hMMmm6 C5nSZ6O0Cc VEWxxqbymbwamFY8ZBZnBJ BinD77Ql8ikOzcLk1fZNBp ZMA8YJPknYIrH0OikZ3jLt AjMDAwMDAw S9ErrVLsNLorL065PApuUd V1IDHewjPkF6QlUNQhxHfa UnS7p9R5Ev3FSs56KB68PS 30oOPte0K0 cYN5B6XhXWSbjhmyxkoggZ Y2TNGmHJZkjT94Du4tvBlw Xc1cYBLyQDI4YPOziMVuC7 EjnJ6cSoOh VBUxGMJaK7UbtKFfUDcyQ6 32IGhnVtO2JJAkqzXnH2Qv VUNiqHscHgI1d8T7Wc8ISP ifvmk6G9Cj PjwvdHI+HV11GZBdQQ91aH OfbTJdq7eucNg1PkUkYJUx WKV1lLfmHVjuy0AcJKTpP9 2bbLYjf0M3 IGN (more content not included)... Normal [facility] C Throaton 07-12-2022 C Throat Ordered by Discern. Normal throat marquez isolated No pathogens isolated Normal [facility] Comment on above: Performed By: #### [id number] ####[facility] (DEFAULT)[address] [place] [address] ED Clinical Summaryon 2022 ED Clinical Summary [facility] ? Urgent Care [address] [place] [address] Clinical Summary PERSON INFORMATION Name: SHANTAL GARCIA Age: 41 Years Sex: FEMALE : 1980 MRN: Acct#: Visit Reason: UC - Sinus Pain or Congestion; UC - Cough; FEVER, SORE THROAT, CONGESTION Arrival: 07/10/2022 14:09:24 Discharge: 07/10/2022 14:57:00 LOS: 000 00:48 Check In: 07/10/2022 14:09:24 Checkout: 07/10/2022 14:57:00 Address: [address] [place] [address] PCP: JIMMIE TOMAS PROVIDER INFORMATION Provider Role Assigned Unassigned JAMEY SUN ED PA 07/10/2022 14:12:56 Rika Ricketts [employer] Nurse 07/10/2022 14:17:19 Vidya Johnston RN ED Nurse 07/10/2022 14:17:20 07/10/2022 14:17:47 VITALS INFORMATION Vital Sign Triage Latest Temperature Tympanic Temperature Temporal Artery Pulse Rate O2 Sat 97 % 97 % Respiratory Rate Blood Pressure /68 mmHg /68 mmHg MEDICAL INFORMATION Medications Given: Allergy Information: sulfamethoxazole PHYSICIAN DOCUMENTATION Patient: SHANTAL GARCIA Age: 41 years Sex: FEMALE : 1980 Associated Diagnoses: Sinusitis; Chest congestion Author: JAMEY SUN Subjective Patient is a 41-year-old female presenting to urgent care with complaint of sore throat, sinus congestion, postnasal drip, cough over the last 7 days. Patient indicates she has had increased sinus pressure and congestion does not seem to go away. She indicates that she is having drainage from her nose and now increasing cough with greenish mucus production. She also states she is having sore throat hurts worse when she is swallowing but able to swallow her secretions. She reports a fever of 101 at home over the last couple days. Patient does report that she took a home COVID test, this was negative. Health Status Allergies: Allergic Reactions (Selected) Severity Not Documented Sulfamethoxazole- No reactions were documented. Problem list (past medical history): All Problems (Selected) Anxiety / SNOMED CT 25606895 / Confirmed Schamberg's disease / SNOMED CT 681010113 / Confirmed Premature atrial contractions / SNOMED CT 412013734 / Confirmed Family history of paroxysmal supraventricular tachycardia / SNOMED CT 6485217988 / Confirmed Family history of intracranial aneurysms / SNOMED CT 0359931125 / Confirmed Bicornate uterus / SNOMED CT 21008362 / Confirmed Objective CONST: -Well-developed well-nourished. -Acute distress: No -Vitals: reviewed. SKIN: -Gross abnormalities: No EYES: -EOM intact, NAN: -Sclera conjunctiva: Unremarkable. ENT: -Increased discomfort with palpation of frontal and maxillary sinuses. -Posterior pharynx is erythematous, tonsils are mildly swollen, no exudate appreciated, tonsils are not communicated, uvula midline tolerating oral secretions without any problems. NECK: -Supple ([id number]-fzkkb): non-tender. -Anterior cervical lymphadenopathy. No pain with palpation of thyroid/cricoid cartilage CARD: -Rate and rhythm: Regular RESP: -Respiratory effort and chest excursion with respirations: Normal -Breath sounds equal bilaterally: Clear -Wheezes: No -Rales: No BACK: -Signs of pain with movement: No EXT: Gross appearance and use of all four extremities: Unremarkable NEURO: -Patient: alert -Gross CN or Focal Neuro deficits: No -Oriented to: person, place and time. -Appearance and judgment: appropriate. Results Review Results review Lab results: 07/10/2022 14:28 EDT Streptococcus A Negative Impression and Plan Assessment and Plan: Diagnosis: Sinusitis (HZI55-HD J32.9), Chest congestion (BTV87-DS R09.89). Orders Orders Laboratory: Rapid Strep (Order): Swab, 07/10/2022 14:27 EDT, Stat collect, Nurse collect. Orders Pharmacy: Ventolin HFA 90 mcg/inh inhalation aerosol (Prescribe): 1 puff(s), INH, q6hr, PRN: for wheezing, 18 gm, 0 Refill(s) !-Augmentin 875 mg-125 mg oral tablet (Prescribe): 1 tab(s), PO, q12hr, for 7 day(s), 14 tab(s), 0 Refill(s) Acidophilus Extra Strength oral capsule (Prescribe): 1 cap(s), PO, Daily, 14 cap(s), 0 Refill(s) Miscellaneous Request: Excuse from Work/School (Order): 07/10/2022 14:51 EDT, Please excuse from work 07/09 through 07/11. . 41-year-old female presenting to urgent care with complaint of sinus pressure congestion, postnasal drip, sore throat, chest congestion. Patient states has been having worsening symptoms over the last week. Patient does have increased discomfort with palpation of the sinuses, greenish-yellow discharge from her sinuses, fever at home of 101 as per the patient, active cough with congestion, anterior cervical lymphadenopathy with redness in the posterior pharynx. I indicated secondary to the symptoms and findings I would recommend antibiotic, Augmentin for her sinuses, throat, chest. I indicated I also continue with supportive care and discussed this in detail with the patient. Patient was given a prescription for an inhaler and de (more content not included)... Normal [facility] ED Note - Physicianon 2022 ED Note - Physician Patient: SHANTAL GARCIA Age: 41 years Sex: FEMALE : 1980 Associated Diagnoses: Sinusitis; Chest congestion Author: JAMEY SUN Subjective Patient is a 41-year-old female presenting to urgent care with complaint of sore throat, sinus congestion, postnasal drip, cough over the last 7 days. Patient indicates she has had increased sinus pressure and congestion does not seem to go away. She indicates that she is having drainage from her nose and now increasing cough with greenish mucus production. She also states she is having sore throat hurts worse when she is swallowing but able to swallow her secretions. She reports a fever of 101 at home over the last couple days. Patient does report that she took a home COVID test, this was negative. Health Status Allergies: Allergic Reactions (Selected) Severity Not Documented Sulfamethoxazole- No reactions were documented. Problem list (past medical history): All Problems (Selected) Anxiety / SNOMED CT 00769524 / Confirmed Schamberg's disease / SNOMED CT 152166256 / Confirmed Premature atrial contractions / SNOMED CT 571158526 / Confirmed Family history of paroxysmal supraventricular tachycardia / SNOMED CT 1988852940 / Confirmed Family history of intracranial aneurysms / SNOMED CT 8707058546 / Confirmed Bicornate uterus / SNOMED CT 11743220 / Confirmed Objective CONST: -Well-developed well-nourished. -Acute distress: No -Vitals: reviewed. SKIN: -Gross abnormalities: No EYES: -EOM intact, NAN: -Sclera conjunctiva: Unremarkable. ENT: -Increased discomfort with palpation of frontal and maxillary sinuses. -Posterior pharynx is erythematous, tonsils are mildly swollen, no exudate appreciated, tonsils are not communicated, uvula midline tolerating oral secretions without any problems. NECK: -Supple (gqdj-su-nyzfz): non-tender. -Anterior cervical lymphadenopathy. No pain with palpation of thyroid/cricoid cartilage CARD: -Rate and rhythm: Regular RESP: -Respiratory effort and chest excursion with respirations: Normal -Breath sounds equal bilaterally: Clear -Wheezes: No -Rales: No BACK: -Signs of pain with movement: No EXT: Gross appearance and use of all four extremities: Unremarkable NEURO: -Patient: alert -Gross CN or Focal Neuro deficits: No -Oriented to: person, place and time. -Appearance and judgment: appropriate. Results Review Results review Lab results: 07/10/2022 14:28 EDT Streptococcus A Negative Impression and Plan Assessment and Plan: Diagnosis: Sinusitis (SRR73-IS J32.9), Chest congestion (XTV35-XQ R09.89). Orders Orders Laboratory: Rapid Strep (Order): Swab, 07/10/2022 14:27 EDT, Stat collect, Nurse collect. Orders Pharmacy: Ventolin HFA 90 mcg/inh inhalation aerosol (Prescribe): 1 puff(s), INH, q6hr, PRN: for wheezing, 18 gm, 0 Refill(s) !-Augmentin 875 mg-125 mg oral tablet (Prescribe): 1 tab(s), PO, q12hr, for 7 day(s), 14 tab(s), 0 Refill(s) Acidophilus Extra Strength oral capsule (Prescribe): 1 cap(s), PO, Daily, 14 cap(s), 0 Refill(s) Miscellaneous Request: Excuse from Work/School (Order): 07/10/2022 14:51 EDT, Please excuse from work 07/09 through 07/11. . 41-year-old female presenting to urgent care with complaint of sinus pressure congestion, postnasal drip, sore throat, chest congestion. Patient states has been having worsening symptoms over the last week. Patient does have increased discomfort with palpation of the sinuses, greenish-yellow discharge from her sinuses, fever at home of 101 as per the patient, active cough with congestion, anterior cervical lymphadenopathy with redness in the posterior pharynx. I indicated secondary to the symptoms and findings I would recommend antibiotic, Augmentin for her sinuses, throat, chest. I indicated I also continue with supportive care and discussed this in detail with the patient. Patient was given a prescription for an inhaler and demonstrated proper usage of this in the urgent care. Strep swab was negative. Told to follow-up closely with primary care provider return for any worsening issues. Continue Tylenol ibuprofen. [Electronically Signed on: 07/10/2022 14:55 EDT] JAMEY SUN [Verified on: 07/10/2022 14:55 EDT] JAMEY SUN [facility] ED Patient Summaryon 023 ED Patient Summary [facility] ? Urgent Care [address] [place] [address] PATIENT DISCHARGE INSTRUCTIONS Patient Information Name: SHANTAL GARCIA Age: 41 Years Date of : 1980 [facility]: [id number] Reason For Visit: UC - Sinus Pain or Congestion; UC - Cough; FEVER, SORE THROAT, CONGESTION Arrival Time: 07/10/2022 14:09:24 Primary Care Physician: JIMMIE TOMAS Attending Physician: JAMEY SUN Comment: Patient Education With: Address: When: JIMMIE TOMAS [facility] [id number] [place] ([place] Within 2 to 4 days Comments: Follow-up primary care provider next few days for reevaluation. Continue supportive care as discussed. Continue antibiotic and probiotic as discussed. Use inhaler as needed. Return for any worsening issues or any other problems. Upper Respiratory Infection, Adult An upper respiratory infection (URI) is a common viral infection of the nose, throat, and upper air passages that lead to the lungs. The most common type of URI is the common cold. URIs usually get better on their own, without medical treatment. What are the causes? A URI is caused by a virus. You may catch a virus by: ? Breathing in droplets from an infected person's cough or sneeze. ? Touching something that has been exposed to the virus (contaminated) and then touching your mouth, nose, or eyes. What increases the risk? You are more likely to get a URI if: ? You are very young or very old. ? It is eloina or winter. ? You have close contact with others, such as at a daycare, school, or health care facility. ? You smoke. ? You have long-term (chronic) heart or lung disease. ? You have a weakened disease-fighting (immune) system. ? You have nasal allergies or asthma. ? You are experiencing a lot of stress. ? You work in an area that has poor air circulation. ? You have poor nutrition. What are the signs or symptoms? A URI usually involves some of the following symptoms: ? Runny or stuffy (congested) nose. ? Sneezing. ? Cough. ? Sore throat. ? Headache. ? Fatigue. ? Fever. ? Loss of appetite. ? Pain in your forehead, behind your eyes, and over your cheekbones (sinus pain). ? Muscle aches. ? Redness or irritation of the eyes. ? Pressure in the ears or face. How is this diagnosed? This condition may be diagnosed based on your medical history and symptoms, and a physical exam. Your health care provider may use a cotton swab to take a mucus sample from your nose (nasal swab). This sample can be tested to determine what virus is causing the illness. How is this treated? URIs usually get better on their own within 7?10 days. You can take steps at home to relieve your symptoms. Medicines cannot cure URIs, but your health care provider may recommend certain medicines to help relieve symptoms, such as: ? Ofhx-yeo-tqevueh cold medicines. ? Cough suppressants. Coughing is a type of defense against infection that helps to clear the respiratory system, so take these medicines only as recommended by your health care provider. ? Fever-reducing medicines. Follow these instructions at home: Activity ? Rest as needed. ? If you have a fever, stay home from work or school until your fever is gone or until your health care provider says you are no longer contagious. Your health care provider may have you wear a face mask to prevent your infection from spreading. Relieving symptoms ? Gargle with a salt-water mixture 3?4 times a day or as needed. To make a salt-water mixture, completely dissolve ??1 tsp of salt in 1 cup of warm water. ? Use a cool-mist humidifier to add moisture to the air. This can help you breathe more easily. Eating and drinking ? Drink enough fluid to keep your urine pale yellow. ? Eat soups and other clear broths. General instructions ? Take vyyy-waw-krqfpsb and prescription medicines only as told by your health care provider. These include cold medicines, fever reducers, and cough suppressants. ? Do not use any products that contain nicotine or tobacco, such as cigarettes and e-cigarettes. If you need help quitting, ask your health care provider. ? Stay away from secondhand smoke. ? Stay up to date on all immunizations, including the yearly (annual) flu vaccine. ? Keep all follow-up visits as told by your health care provider. This is important. How to prevent the spread of infection to others ? URIs can be passed from person to person (are contagious). To prevent the infection from spreading: ? Wash your hands often with soap and water. If soap and water are not available, use hand cafe site attendant. ? Avoid touching your mouth, face, eyes, or nose. ? Cough or sneeze into a tissue or your sleeve or elbow instead of into your hand or into the air. Contact a health care provider if: ? You (more content not included)... Normal [facility] Strep Aon 07-10-2022 Strep procedure control Pass Normal [facility] Comment on above: Performed By: #### [id number] ####[facility] (DEFAULT)[address] [place] [address] Streptococcus A Negative Normal Negative [facility] Comment on above: Performed By: #### [id number] ####[facility] (DEFAULT)[address] [place] [address] Urgent Care [place] 023 Urgent Care Record [facility] ? Urgent Care [address] [place] [address] PATIENT DISCHARGE INSTRUCTIONS Patient Information Name: SHANTAL GARCIA Age: 41 Years Date of : 1980 Reason For Visit: UC - Sinus Pain or Congestion; UC - Cough; FEVER, SORE THROAT, CONGESTION Arrival Time: 07/10/2022 14:09:24 Primary Care Physician: JIMMIE TOMAS Attending Physician: JAMEY SUN Comment: Visit Diagnosis: Diagnoses This Visit Chest congestion (R09.89) Sinusitis (J32.9) UC - Cough ([id number]) UC - Sinus Pain or Congestion ([id number]) If you received any narcotics, sedation, or any other medication that causes drowsiness for the next 24 hours, unless otherwise directed: ? Do not drive a car. ? Do not operate machinery such as power tools, lawn mowers, drills, sewing machines, or stoves ? Avoid alcoholic beverages and drugs for allergies, nerves, or sleep ? Do not make important personal or business decisions or sign any legal documents With: Address: When: JIMMIE TOMAS [facility] [place], [place] [id number] Business (1) Within 2 to 4 days Comments: Follow-up primary care provider next few days for reevaluation. Continue supportive care as discussed. Continue antibiotic and probiotic as discussed. Use inhaler as needed. Return for any worsening issues or any other problems. Medication Information: The exam and treatment you received today in the [facility] were for an urgent problem and are not intended as complete care. It is important for you to follow up with a doctor, nurse practitioner, or physician?s assistant offset press operator for ongoing care. If your symptoms become worse or you do not improve as expected and you are unable to reach your usual health care provider, you should return to the Emergency Department, we are available 24 hours a day. For those patients who have received Radiology results, the interpretation of your X-ray as given to you by our Urgent Care physician is only a preliminary report. The Radiologist will review your films and if there is a change in the diagnosis you will be notified by phone. Please make sure you have provided a working phone number so we can reach you if necessary. In the event that you had a lab culture while you were a patient in the Urgent Care, you will be notified by phone if there is a need to change your antibiotic. Please make sure you have provided a working phone number so we can reach you if necessary. [facility] Urgent [facility] has provided you with a complete list of medications post discharge. Please inform your licensed mortgage loan officer/provider of your visit and for further instruction on these medications. Any specific questions regarding your chronic medications and dosages should be discussed with your primary care physician(s) and/or pharmacist. New Medications [id number], [address], [place] [id number], [phone] albuterol (Ventolin HFA 90 mcg/inh inhalation aerosol) 1 puff(s) Inhalation Every 6 hours as needed for wheezing. Refills: 0. amoxicillin-clavulanat e (!-Augmentin 875 mg-125 mg oral tablet) 1 tab(s) Oral Every 12 hours scheduled time for 7 Days. Refills: 0. lactobacillus acidophilus (Acidophilus Extra Strength oral capsule) 1 cap(s) Oral every day. Refills: 0. Additional medications on your home medication list not specifically addressed. Please contact the ordering physician if you have questions about these medications. ethinyl estradiol-levonorgestr el (Aviane) 1 tab(s) Oral every day. sertraline (Zoloft 50 mg oral tablet) 1 tab(s) Oral every day. Refills: 3. Visit Information Allergies: Substance Reaction Symptoms Type Comments sulfamethoxazole Drug Vital Signs: Vitals and Measurements this Visit (last charted value for your 07/10/2022 visit) Vital Signs This Visit Temperature Temporal: 37.1 DegC Peripheral Pulse Rate: 101 bpm Respiratory Rate: 16 br/min Systolic Blood Pressure: 110 mmHg Diastolic Blood Pressure: 68 mmHg SpO2: 97 % Oxygen Therapy: Room air Blood Pressure Method: Manual Measurements This Visit Height/Length Measured: 172.72 cm Weight Measured: 63.5 kg Body Mass Index: 21.29 kg/m2 BSA Measured: 1.75 m2 Problems List: Problem Onset Comments Anxiety Bicornate uterus Family history of intracranial aneurysms Family history of paroxysmal supraventricular tachycardia Premature atrial contractions Schamberg's disease Patient Education Upper Respiratory Infection, Adult An upper respiratory infection (URI) is a common viral infection of the nose, throat, and upper air passages that lead to the lungs. The most common type of URI is the common cold. URIs usually get better on their own, without medical treatment. What are the causes? A URI is caused by a virus. You may catch a virus by: ? Breathing in droplets from an infected person (more content not included)... [facility] Coding Summaryon 06-18-2022 Coding Summary HTMLBase 64 FdzkzgjeXQc7tJp+PGhlYW Q+MX9IMMRfX47maDOipP2D H1rQAD6IIIOAAPKIOY2FYQ 7pwBO1MOwbI7QnhyLu AxhyxEBdOR33FNr2UEO8dU upDNzmlF0cyWTrG2n9AbXt CI96uI72HXzlFOPzCwP4Wz ZpbjsgbWFy O9atJgTsnBEbLgh+PHRhYm xlIHdpZHRoPScxMDAlJyBz dSmkHS0sUk7tQBCwSNDthC xhcHNlOiBj p9fkAORrPOcnBB5xhVvcX5 InmNU2MTSjx5v6Ul77dZQ+ VXUeFGT1dHgqYXcal811An Xrb5tsWZJ5 jSHkNLorNCS2U93sh7I6KN EuUSFoJKQ6pGO6sB4vtMzi loilG4OqqUPqOzI5BUU4zN CunC4crGbc epnlzB1lVid+U66SCR6NNQ KLCZ5QYjb9K8ImLlxsxRW+ HS46VZTfOB21bNYbnUFqr6 fyiZl4VuHs FKGvOPD6uUmnUKjoh2StZM DyT15frPOjv7S5KTQioUfd qXFhIlPigLO5dH7sOShcds zft1mumfzp Usixe3iobn03xJ18R66lYM ycVESmRVN8OPGvPEAnyTqz zr9idC7rEi7+DAdcw6yrk7 fseDm2IkIf DNPdqwFjoKcaAFZ4i6RxVf 95S1BeqEkyk2DvKvu1mi51 sLOmc8P1rOV3PHghJGTjgF 0tBTcxZoK1 RNDhDrNmmC67uWIlQYzuJl 1ozKjceZpiXQ5bYRNhxffq KMXorD7yOEHxmJKxuFafBK 4wNTBpbjtm h722FyOfZHS7IQNizTAwW9 CiwZ4zLjIeRVRdQRCtO1Ty bGLoIXenB749YDcpNzZ1ST SaytFyU6Sp VOEzwPccRpY0w6T9Vx1Qg6 JcvbylMIK0JLxzFCN8BlA5 TgAkPjV3D1VwVbo0MPFkzN toYT8xM7Ri IIRjucgxsabjrHD5KIPeOP FnkQ08tXXkOFetRe0ly2I8 m523XSOqNNQomD07Mk8qjU ogMTBwdCBU fN2lrnvmq5wtwmwjMpFcBG UrWWj5JXg7ZGUdpNedCbRp VJM4UiU9WCA8rIUmtZ1ekI qjkwdrtC2l Oyc+B20zbP2tMEY5SOT1ti reAKOupuXrGD54LX63G3Ty PjwvdGFibGU+PGRpdiBzdH nsHP7nKaZa k1jds2JsMWvhN4SzJCFsVS yoZnm4HGQcPOZ4jDW9nQ6v KOHaYEyza9C4fDT8V6Rtnv Pajd6dx3oh YTBpNFrwU20tjGGnf3V4RG PjhAC5RBXocOutTgNhmQ18 Oyc+XTRwhXhuc2ToLgzmq2 ioq3zhnMj3 WxIdAHRvsxBtnOnrMQD7g5 JcOp03X53mDCvjJWPxWHFi FQEbSMWhvDiqth3cdQ1bTw 8+PGNvbCB3 eXU9fR3sMDHaZzX4CMoaZ1 28PmXmhBJoJivku4iwg9ta uAb5AgQaDQBjyyGpaHiiMK T1u3DbNw73 N94zYXnbXMQgHBQcOHKsFG JipLdrjl2szP0eRk9+PC9j c7zzgy14rL62tCP+PHRkIH R5sRgjMWzs TQTisZ9tXLdySkA6EEFlIq HqhR85rMEgXCxeGb0ccVut pXelRW0fNJDrnhobf176Rm Lbg6ytCPBf cZAeJHydRBU5E02sw2J0KG WtIXCoQHW7tPL5hP3lfLjq bjogbGVmdDsgdmVydGljYW hpCJhiL185 IHRvcDsnPlBhdGllbnQgTm LvCPg5X9KoPsf5HPRgxJxi MN4stKRxCPyvXo0drZxwlM euTZ8sQTZf wfhyt405FvCul0ecBTVpxN DjPTpnDIS7F06hz9L9ICQb HKHnRCY0qZA6rS5ubOnmfl ogbGVmdDsg yeMdfAbtDVzbVPkaJ159YK RvcDsnPkJpcnRoIERhdGU6 PF66PW72tWBvy9R4sKQ4G0 BhZGRpbmct sgaxxFG3UHArCMAixY98Ov 7goAafTi8nQZChBBL5PFZh aETzT7WhcE7kWyDaGAHmLY MfY3FfdQKw BHsuS632SKriNkV8XQSmrw CmQ5EuTCJsgXhrJcU9n3W0 Qi0CR9S7TD02KZ38qEHen9 Y5cBE8A0Ku GATgdpqscxhwzUZ2VPMySM TxbN80Wj3wtXyvPo8mAGHg FHF1NSLqnFMyH7FgwQ6oYr AjMDAwMDAw N1KglSOaVRidW245DKnxLe B3EFApkiGnM9YoWQOyrUgp ZsK9l4W5Va2QHDd9RL86ME 59oIExi4Q8 aRS0Z1AoFPQdocjtqmcpqO M2OTZwJAAcxB99Kh7nmScl Lr2bSYYhQLW3TUUdtYArX1 ZclQ3bNyYh CKZyXWGzB8InkTBfEZwiQ8 92XVedQeV6UAKvsxRxE3Az CDVzqSshMyA4z0A0Ff3VTP JqWG08FZX9 yXO8FE64DK84J5RsMfndyO FibGU+PHRhYmxlIHdpZHRo GGjwRALrYwYnxFhpVK5pBx 9yZGVyLWNv pStsnHTxFnDcp4ufHCUsSU xiDF9vgLcjM7PnyMM1OWGc l8w6Fm71A51uI8ZuwZS+PG SlkDM5bPL8 yT8bYxUmYoX3UGcaG106Bs LgpIHiVgyel3buj6jepEg3 PxE1YQQikbWhmEewQDK6w8 LyYy01L35d IHdpZHRoPSIxNSUiIHZhbG csoy7ohZ1pLw7+PGNvbCB3 pLA1aQ0jVxElPxF5QDkyI9 49InRvcCIv Sgidr9qnu3dcoQz7BbVmXJ ZitaYrxLtyMRA8m7SfTo85 V6CjbGght0OiHgl3jl62tI Vnb3F0aDM2 R6ApLGAnubosuICqiTalRZ 7dCTZhghguZEMrwZ2kQFVy O8d2NdOfHmN8WYqsF8Xmlc W8GFGqwKKu IDmdPIO0Z31uu7C3TWNdWE BpEHP9sWP3rU8ruThzalft bGVmdDsgdmVydGljYWwtYW ncC180DGCn rKhlDFTzuH0yILOwwUFtrI jnCO8fJOTmgpfyWuSUFXIX MThaT7OYLDrFWMRDLN76KD 49qNJxy6W8 wXR1L8CcCNBnnjhfqgzmeT Z2EPLpIOGwlI03kLYvJSbv Ik5mn2N6y935MPZbBQLnjZ 40Ts7ciGty NSYtwWEMtA1idukub4zgea fqEiBcZSIxBKf8OYk3GUPe qXtwBvQlWZJ4OwT0TXE9uI NogB0jdSla rnuxrR7lJhh+MDYvMjYvMT i0NqhzfXI+NXXgWEW3zHah UTlnPWJirV2bELJlS1y5Dd HlAbF3OAqb Z6ZnYKJpksgfYw77bE4mPp UfZgL5BJlwF5DfauA6QUBe fYRpNKtgRVN4S59jn2R1JZ MwMDAwMDA7 dQM0tN4pbShpodobfGNinM mhttLqjPdeDCspBAqgN260 IHRvcDsnPjQwIFllYXJzPC 01ZW02jLNc y4L2qRT5B8VtMAHsontkms avhXS2PIIfAUXvpJ92aJNq ZEsoZj6es0G4s162CHBqNM OtaL12Gq6z eRvjJCNvfSTRtR1zylufo0 mwixduEkHyXCPpVCm2UWz6 CTInbMckUqIaODU4LzQ4DH H1gACjcB0d oVnzxditpM0fYpl+RkVNQU kSAG35PI90vOEui2V4wTJ0 I0PqTWFxiwfuammuiJX8CG YvMASwrX71 dXLeFZuhZz9sp3X5j745MH EoDKOqaO68Wb3djNgaKQUp cUPCjD5oskigb6bvdsffNg AwMDAwMDt0 JAt3QSKzdTkqBhWeUTY5Fb R8ZUT4bYKykX8qnHxhlmdy oP3mRey+M0Y1N2QuDsdetX I+TU04GLTe GU40gRLdaRSyn6oheGx0Rc PwNYTvBJI0vZlsQChqm0Wa WNDzQ70feUWxo2F0HXXrdI xhcHNlOyBl sKH8vK5oIMcmbygmg8kjig rnIvbqg0bjpz96jE02Z07q IHdpZHRoPSIzMCUiIHZhbG wuds0ulK5o Ii8+VAIedME1qKY6xF6yPo SrBwM4WFqnZ616JeJwlSZc Tiyyn2zdx7easTt3RiElIY IgdmFsaWdu SCP5b1VqQj87K70hJUrzNI ZzQWZzVENcOBVfkYbbvz7z cR6uEp8+GU9gv1svaa00rT 48dHI+PHRk AYG1aFpfVHoqCOYptI0tOH yhTyP9AMUuEzOrdM04iWXd JLpfCg1vrZppqMegDS0xJB Razgcdo186 VdIqx7sdZRLwbIGiNDnxZW N2I10qq1O8YXXbHOXfWZO9 pTZ1rR4yjUtsociwkQYkoX sgdmVydGlj IRawGZbgF124QYQtdUqzAe HmhBCuM9ioutPOPU9nQlkl dGQ+SIIuNET1iUzqJZyuNN AmoD3uSCRi L2c1UmKjIcF7MMqfK0Naoj X2EOMitBHjNJCldNUKiG3t jqiee9xnwkysFdLzKORkXH f6SJo5TBRs rVapOrYmTJA8BoR0CZI0rV RbsY7cvGxemvzumB9jCah+ RklOOjwvdGQ+MZBdSYX8bM xlPSdwYWRk jX6uIOVqG1e2VvHjTkC4BX xwB3DtjiC6MTFzzBSaUOOg zKZAhV1uyvouv9ovexsuQx AwMDAwMDt0 ZXg1NBApyLysVpYdFLR3Ms O5HNO7tXWvfU5ttXaeqgoy tV9kEzo+TVJOOjwvdGQ+PH MmXOX9dFum JNouLNLhdS2uPYIdW5u0Bq FvUlY8YBfyX7PoglP4TTTd gYNrMFQquYEPmS5kbtfqr7 xvcjogIzAw FOHaJWw2LFh2FUGlbFfqLq FoCGM3YpA2IGS4jWBngZ3y nLbvbrobqM2mObd+UGF5ZX Z5ZI72VW52 T3BnKwsgyLKryFT+PHRhYm xlIHdpZHRoPScxMDAlJyBz hHajBZ2cTd3bMSTyWAMrnQ xhcHNlOiBj b2x (more content not included)... Normal [facility] ED Clinical Summaryon 2022 ED Clinical Summary [facility] ? Urgent Care [address] [place], [place] [id number] Clinical Summary PERSON INFORMATION Name: SHANTAL GARCIA Age: 41 Years Sex: FEMALE : 1980 MRN: Acct#: Visit Reason: UC - Rash; SKIN PROBLEM Arrival: 06/04/2022 18:49:16 Discharge: 06/04/2022 19:40:00 LOS: 000 00:51 Check In: 06/04/2022 18:49:16 Checkout: 06/04/2022 19:40:00 Address: [address] [facility] [address] PCP: JIMMIE TOMAS PROVIDER INFORMATION Provider Role Assigned Unassigned Kvng Olivares ED PA 06/04/2022 19:01:34 Ivory Berrios ED Nurse 06/04/2022 19:12:36 VITALS INFORMATION Vital Sign Triage Latest Temperature Tympanic Temperature Temporal Artery Pulse Rate O2 Sat Respiratory Rate Blood Pressure /60 mmHg /60 mmHg MEDICAL INFORMATION Medications Given: Allergy Information: sulfamethoxazole PHYSICIAN DOCUMENTATION DISCHARGE INFORMATION: Discharge Disposition: Home Discharge Location: Home PATIENT EDUCATION INFORMATION Instructions: Postherpetic Neuralgia; Shingles Follow-Up: With: Address: When: JIMMIE TOMAS [address] [place] [address] Comments: Diagnosis is shingles rash, from history of had a viral illness in the past reports he cannot locate shingles. From exam it appears to be shingles, but it is not significant, it is not weepy, no herpetic lesions. As we discussed this can be contagious when it is weepy, so good hand hygiene is important. Keep the rash covered when out and about. We are starting you on medication in the form of famciclovir, he has been electronically sent to [facility] in [place]. For any painful symptoms may take Tylenol ibuprofen. Do not take more than 4000 mg of Tylenol 24 hours. Follow-up with your own primary care provider next 3 to 5 days for reevaluation. Return to the emergency department for worsening symptoms or concerns, including fever, any sloughing of the skin, shortness of breath or chest pain DIAGNOSIS: 1:Shingles rash Patient Understands: Yes - Patient/family/caregiv er verbalizes understanding of instructions given Comment: Normal [facility] ED Patient Summaryon 023 ED Patient Summary [facility] ? Urgent Care [address] [place] [address] PATIENT DISCHARGE INSTRUCTIONS Patient Information Name: SHANTAL GARCIA Age: 41 Years Date of : 1980 Reason For Visit: UC - Rash; SKIN PROBLEM Arrival Time: 06/04/2022 18:49:16 Primary Care Physician: JIMMIE TOMAS Attending Physician: Kvng Olivares Comment: Patient Education With: Address: When: JIMMIE TOMAS [address] [place] [address] Comments: Diagnosis is shingles rash, from history of had a viral illness in the past reports he cannot locate shingles. From exam it appears to be shingles, but it is not significant, it is not weepy, no herpetic lesions. As we discussed this can be contagious when it is weepy, so good hand hygiene is important. Keep the rash covered when out and about. We are starting you on medication in the form of famciclovir, he has been electronically sent [facility] in [place]. For any painful symptoms may take Tylenol ibuprofen. Do not take more than 4000 mg of Tylenol 24 hours. Follow-up with your own primary care provider next 3 to 5 days for reevaluation. Return to the emergency department for worsening symptoms or concerns, including fever, any sloughing of the skin, shortness of breath or chest pain Postherpetic Neuralgia Postherpetic neuralgia (PHN) is nerve pain that occurs after a shingles infection. Shingles is a painful rash that appears on one area of the body, usually on the trunk or face. Shingles is caused by the varicella-zoster virus. This is the same virus that causes chickenpox. In people who have had chickenpox, the virus can resurface years later and cause shingles. PHN appears in the same area where you had the shingles rash. The pain usually goes away after the rash disappears. You may have PHN if you continue to have pain 3 months after your shingles rash has gone away. What are the causes? This condition is caused by damage to your nerves due to inflammation from the varicella-zoster virus. The damage makes your nerves overly sensitive. What increases the risk? The following factors may make you more likely to develop this condition: ? Being older than 60 years of age. ? Having severe pain before your shingles rash starts. ? Having a severe rash. ? Having shingles in and around the eye area. ? Having a disease or taking medicine that causes you to have a weakened disease-fighting system (immune system). What are the signs or symptoms? The main symptom of this condition is pain. The pain may: ? Often be severe and may be described as stabbing, burning, shooting, or feeling like an electric shock. ? Come and go, or it may be there all the time. ? Be triggered by light touches on the skin or changes in temperature. You may have itching along with the pain. How is this diagnosed? This condition may be diagnosed based on your symptoms and your history of shingles. Lab studies and other diagnostic tests are usually not needed. How is this treated? There is no cure for this condition. Treatment for PHN will focus on pain relief. Unmd-cjv-mdgdnfr pain relievers do not usually relieve PHN pain. You may need to work with a pain specialist. Treatment may include: ? Anti-seizure medicines to relieve nerve pain. ? Antidepressant medicines to help with pain and improve sleep. ? A numbing patch worn on the skin (lidocaine patch). ? Strong pain relievers (opioids). ? Injections of numbing medicine or anti-inflammatory medicines around irritated nerves. ? Injections of botulinum toxin to block pain signals between nerves and muscles. Follow these instructions at home: Medicines ? Take fuya-diw-fwjfzaa and prescription medicines only as told by your health care provider. ? Ask your health care provider if the medicine prescribed to you: ? Requires you to avoid driving or using machinery. ? Can cause constipation. You may need to take these actions to prevent or treat constipation: ? Drink enough fluid to keep your urine pale yellow. ? Take yywa-znm-zlloked or prescription medicines. ? Eat foods that are high in fiber, such as beans, whole grains, and fresh fruits and vegetables. ? Limit foods that are high in fat and processed sugars, such as fried or sweet foods. Managing pain ? If directed, put ice on the painful area. To do this: ? Put ice in a plastic bag. ? Place a towel between your skin and the bag. ? Leave the ice on for 20 minutes, 2?3 times a day. ? Remove the ice if your skin turns bright red. This is very important. If you cannot feel pain, heat, or cold, you have a greater risk of damage to the area. ? Cover sensitive areas with a bandage (dressing) to reduce friction from clothing rubbing on the area. General instructions ? It may take a long time to recover from PHN. Work closely with your health care (more content not included)... Normal [facility] 023 Urgent Care Record [facility] ? Urgent Care [address] [place], [place] [id number] PATIENT DISCHARGE INSTRUCTIONS Patient Information Name: SHANTAL GARCIA Age: 41 Years Date of : 1980 Reason For Visit: UC - Rash; SKIN PROBLEM Arrival Time: 06/04/2022 18:49:16 Primary Care Physician: JIMMIE TOMAS Attending Physician: Kvng Olivares Comment: Visit Diagnosis: Diagnoses This Visit Shingles rash (B02.9) UC - Rash ([id number]) If you received any narcotics, sedation, or any other medication that causes drowsiness for the next 24 hours, unless otherwise directed: ? Do not drive a car. ? Do not operate machinery such as power tools, lawn mowers, drills, sewing machines, or stoves ? Avoid alcoholic beverages and drugs for allergies, nerves, or sleep ? Do not make important personal or business decisions or sign any legal documents With: Address: When: JIMMIE TOMAS [address] [place] [address] Comments: Diagnosis is shingles rash, from history of had a viral illness in the past reports he cannot locate shingles. From exam it appears to be shingles, but it is not significant, it is not weepy, no herpetic lesions. As we discussed this can be contagious when it is weepy, so good hand hygiene is important. Keep the rash covered when out and about. We are starting you on medication in the form of famciclovir, he has been electronically sent to [facility] pharmacy in [place]. For any painful symptoms may take Tylenol ibuprofen. Do not take more than 4000 mg of Tylenol 24 hours. Follow-up with your own primary care provider next 3 to 5 days for reevaluation. Return to the emergency department for worsening symptoms or concerns, including fever, any sloughing of the skin, shortness of breath or chest pain Medication Information: The exam and treatment you received today in the [facility] were for an urgent problem and are not intended as complete care. It is important for you to follow up with a doctor, nurse practitioner, or physician?s assistant offset press operator for ongoing care. If your symptoms become worse or you do not improve as expected and you are unable to reach your usual health care provider, you should return to the Emergency Department, we are available 24 hours a day. For those patients who have received Radiology results, the interpretation of your X-ray as given to you by our Urgent Care physician is only a preliminary report. The Radiologist will review your films and if there is a change in the diagnosis you will be notified by phone. Please make sure you have provided a working phone number so we can reach you if necessary. In the event that you had a lab culture while you were a patient in the Urgent Care, you will be notified by phone if there is a need to change your antibiotic. Please make sure you have provided a working phone number so we can reach you if necessary. [facility] has provided you with a complete list of medications post discharge. Please inform your licensed mortgage loan officer/provider of your visit and for further instruction on these medications. Any specific questions regarding your chronic medications and dosages should be discussed with your primary care physician(s) and/or pharmacist. [id number], [address], [place] [id number], [phone] famciclovir (famciclovir 500 mg oral tablet) 1 tab(s) Oral 3 times a day for 7 Days. Refills: 0. Additional medications on your home medication list not specifically addressed. Please contact the ordering physician if you have questions about these medications. ethinyl estradiol-levonorgestr el (Aviane) 1 tab(s) Oral every day. sertraline (Zoloft 50 mg oral tablet) 1 tab(s) Oral every day. Refills: 3. Visit Information Allergies: Substance Reaction Symptoms Type Comments sulfamethoxazole Drug Vital Signs: Vitals and Measurements this Visit (last charted value for your 06/04/2022 visit) Vital Signs This Visit Temperature Oral: 36.9 DegC Peripheral Pulse Rate: 72 bpm Respiratory Rate: 16 br/min Systolic Blood Pressure: 114 mmHg Diastolic Blood Pressure: 60 mmHg Blood Pressure Method: Manual Measurements This Visit Height/Length Measured: 172 cm Weight Measured: 63.5 kg Body Mass Index: 21.46 kg/m2 BSA Measured: 1.74 m2 Problems List: Problem Onset Comments Anxiety Bicornate uterus Family history of intracranial aneurysms Family history of paroxysmal supraventricular tachycardia Premature atrial contractions Schamberg's disease Patient Education Postherpetic Neuralgia Postherpetic neuralgia (PHN) is nerve pain that occurs after a shingles infection. Shingles is a painful rash that appears on one area of the body, usually on the trunk or face. Shingles is caused by the varicella-zoster virus. This is the same virus that causes chickenpox. In people who have h (more content not included)... [facility] Release of Informationon Release of Information [id number]#1.0 [id number] [facility] Coding Summaryon 04-24-2022 [facility] XqsogamzFRx2zBj+PGhlYW Q+VS6TBYDqD74zyHPrgZ5B P1bMIS7DDXLFPUXGPN9UNF 9dxSX8NFreE0FanpHs WgtebPWbOJ79HLy7QEJ1aY nnLSdmrS9qiNKuF9m7SdMh ZR66jG56QFivGBExVoI5Mi ZpbjsgbWFy A8amEkCgkIQuHja+PHRhYm xlIHdpZHRoPScxMDAlJyBz zZblBX4fKn3fOPGxAOEywD xhcHNlOiBj g3xoFMPbXJqwOS0umBptL1 RbtUB5WXUjj8f2Lo38rYB+ FAEmMRY6tNewHNnwh404Vk Los8gmKOO2 dVNmQXukRYI2U46na8L0YP YeIFQtXLD5iCG6cD0wcRcf mpigY5BdgXTxWrH8DVV9pG JcvR6jxVju btzooO2rHev+V07CDZ9VKX OHXX9ULev8H8FnWblyhAA+ QS84FWWaQI23bRTawOLyh6 vcaJh8UvTr BQZyQVK5gIgcYNeqx1CbPR NlK82raSYua7B0ZNJleYfl wJJcLtBziYX0pI2pXZltfa udl8ccmkyx Xfypg2owfx76hC13Z71vHI mhMQYyOXK0QOBpWUIcdZze aj2vnM0rEi8+BQpuu3ruf3 cpdOf1TiNz LCWsubOagZfoHRS5k4EuOp 29M9EdaJyxb0UsFfa5as52 cMIjq9I1wSV5LJaaBVNmkP 9xLAacEuD6 PHNuGqHoeL80wMEoAMzkDy 6jcNqebSzoWH8lDHAcrqhm OZWbkU7pQJBboNDzxQkeAF 4wNTBpbjtm p878QgYmVVB1SZBrfOXhD7 HetG4jZfCkJWFbNOLzJ1Ha rSPzTHpzR416XAptQeZ6UQ OihpMqS0Hi SKHnfIneEgF3i4Y3Cr2Sz6 WpgtofAQU5UDgcTVGyFnNs LzWsWoB1D0WdQry1WQDbyW auAF0hI7Co PZNrrlinyhclaCZ6XDGzGZ UmhN97rWVxOUwxUh2rp1Z8 n779EWIrOVIoeX22Oe1tnD ogMTBwdCBU bV2honalq1qkldkcFiYcYS SwVUx8DCs8HGXcnZbdEhRp WQU4XnM0DFQ0dUDcqO9pdZ sucbvzbQ4n Oyc+R68swG6cCRG1DYM8oz ekHHKibrPaQV24BE78U7Rg PjwvdGFibGU+PGRpdiBzdH vlPZ0hMeMp m0fbj3RhDSufY1AcFZQrSC owTdj6OVFkWQF3wUO3gR3z QBBaBQply9B5tTS0X9Hrba Huew5sk6ra DXYsPOgfM56bwNFbc3F0TD QudFW4GNYqfAobFjMukC40 Oyc+QBKmvNjtz4AjAyqla2 tcr5jafPh3 JnFjTEXenoZvxFjiRXI4t2 VhMa85Y94vTSvrWJGfJAZr RPWkWBEwiVuqmg2jjK6lQz 8+PGNvbCB3 jXS4aQ7aCCLrKcL1INosG5 20DsAtjMNzHkpwn2nbf7rs lDe9XmWyKDMtxcAqdHnjOR Z2o4YmWu99 D30hEHsaCGKmSXIbBCGaPQ BvyTbnge0esU0yLj6+PC9j i6hmyd61xA34vWX+PHRkIH V0uAmbMNdk KEWjtE0tQLpyJeV9OOBgWf CtaR80jMInVCmjGq5bpChe eKntBM8yAXIjkqlci540Ce Iqh9eiCTLx cLHlWDfnYRN7F55qg6V9HL CyCKNpFHE3zWX2tL4hrFkv bjogbGVmdDsgdmVydGljYW weVOosY731 IHRvcDsnPlBhdGllbnQgTm InWWy6X3WfGie8UWKzkNin TX7suNRuRPggZh3acIfsiG lqKL5dBDDm dnbkt699OgWlc4foFXYkxA BoGStnWVX4N43wg6Q9ZZYu RIArNZZ8gSW7dH0piWifmn ogbGVmdDsg gsZvaVrsPBrtZVriV857GB RvcDsnPkJpcnRoIERhdGU6 QM82BB88hFLsm5N2oGC1E6 BhZGRpbmct yujwoIE5JVXdWEFblC50Rc 1ohLszJa0dZIWrFGW1LDMz kDLfW0KoqX2tDeVxOOKoYQ WeT2XyqCTp HPenV317WHsrCrY2IILrpt IwK3EnUYKyiOuoZyN6s2Q7 Qb8KP6H3QB00CZ54qWPlf1 O1rZW9C8Gy VBCmswcbmxipjQE3GYAlNI VnnF23Em3ytKldGm3xFOSb NMH9IHIbxBTdU9HfzD1yUg AjMDAwMDAw Q4VwkKHzAGbbD312JJxyMu O0OXNrrwDuP1IjTJFwkWjz UuI9j6U4Cz9JMFm5XA18OC 40oTUcf0K8 sLQ6U7HiWQSgbkuhgeqonM R9BUWtPYCajC33Zm3wsMew Dg3jQYCwBUB3VHXhvJNjT6 XnvC4eQeIj TIJpRDViR8EknDXuCPyrT7 35CIfsZkX2QDAqwbEkO9Gr QNXmxDnoStI2b9L2Zs5PTJ LgHJ44QHX0 rEM4TF96BG73H4BzEwlhwE FibGU+PHRhYmxlIHdpZHRo APbfRCIiGjAgyRqnWB5eDh 9yZGVyLWNv kPwspICwStRbb2kyZTRkKS kiNI4tlLxzX3OqhRV8QGKs o7c9Zt06O07qO5FwfNQ+PG XqsQG8sTZ8 vT0sUpMgAcD5ZMpwG420Nf NzjPXpYsrhv3gct5eazQd0 CrV6PRTsdyWufZdpFIL9f5 IcOm23B18t IHdpZHRoPSIxNSUiIHZhbG xech6lwJ2uBa0+PGNvbCB3 fIT7eF6cGzUlCdB7EAbrR0 49InRvcCIv Arghf1lhk7ljbIu6YrQhGL JzvkJhrVkeXRN5i6AgCx84 G3AmlNkmy5BzChi3nn96eN Bau1O0uMS7 R9ZwFUPvrtypzKIjbRenVM 4wIBMloashOFEjjD7rPGIe U0a7PhWmNtP1DIgxV2Krdq L6ZOJiuRPr BTucNJM8M88lu8N6XJLtPL LpOQY4zUE6oH4qqQhdgkzb bGVmdDsgdmVydGljYWwtYW odW121HUUa jHiaBBUowA1hODPwdKXtoJ qaZK8gPCPzuuaxSeFNFDDG ACtqI9DUFUiQHBQFDP16RJ 91xEMbm8L1 qYC7I2QuMUZoymmakvmupL F2GTGnUXDzoF96xQSsNCed Ik4wj3W9k798PLNgACXxcH 19Kk0emDrv QBHefXRZfG9dxhcrh8jokb psNqBkGNPqMLs5AYf9BNRu fLisHnSaLUC6RyA9QLD4qZ JwrH8sjAnc rwokoX9zBip+MDYvMjYvMT v9ImyvyPL+RJOpPLE8wEsl JGubRHCkxN4xZHNhW2m8Eq SxWyP4ACuj Q7YaQBKqxzecCe77sQ3eNd HrCgV4DAgpH3GrdnQ8HVCu iXPqHSuqMPY2Z30xx7M6KX MwMDAwMDA7 wLM1vF7egFclvbwykPIinH uohvXtnByrMXfcWJswD127 IHRvcDsnPjQwIFllYXJzPC 29XN94aDKu a4C4oBD2Y8WgVVHpqjopiy pzcRS9ZFOuUOAdoP68gJRo FKpjLe4rj9V1v268SQDpQI RxrN19Ee3c wYwhPVZftKQUtE7efzrjc9 yafzhcQnQcASAtKDp5CHh2 GVShhYvzMuYfJSG2CjW7DT R4dLEvrR2p mQuvphjewZ0uSwv+RkVNQU zIMM76UN96uVNhp2I2dZP8 T8FuPMGyebliubjzhWM4ZW OrZZXzrW26 oYJaNTguUn6ks6B9a864GN TaOYMdnO80Lg0zcOaaWSYr xFGBdO4bigasy6sphgcsNj AwMDAwMDt0 DHs4OJNavVcnDqQhAUF1Pt N2WJH6yFDqrE6ueMzggkmj nQ7tDjx+P2R1T4UuKlzxzP I+XH48MLWn JZ63kSAazOQnk3jpdCw6Oj SlWREdOFL7cNanKVhtl9Eu NQIsU65ibZVnm9I7UWCkfS xhcHNlOyBl hUD8gK7jWRbmanast6lawl hyJjlxb7mkma50xJ22J97m IHdpZHRoPSIzMCUiIHZhbG tihx1kxH9f Ii8+CUTerZA2aBJ4jC9uVm NhBzH6BOfsE050AiVkeTDj Arwxz4iok4zdjMd4UdCdVT IgdmFsaWdu MZI9k2DwXg07Y47wGHlnRA MbTWSiLDQgMJBnwLalea1l kW3dOb5+IL1js4belf63uJ 48dHI+PHRk WLQ6bGzjEKijBIKqhQ4tGZ ygAeJ3GLAgSlXogR49dCKl ADwaBy7hjCqulLrkIA8uNE Lthlkpl234 DfHdo9fjMGIkuTUiHRfvDJ W1G18qo4C3LCZxFBCyUFN2 iQI7nC4voUbqpgmxqUWdbL sgdmVydGlj CJosWLjnM808DUEocOviBn JovSWeX3ffqoFLBC1bAcmg dGQ+HUZjCGE4vNjcFRqyPA JdeU9oPIVh H5f7LaNyIqJ4SPrvZ8Mfnn C0UMVwqFEwQBWvkGQUmZ4n htxco2juplwgSaIqWIGsQM j8ULp6YYCq bXdyBeAlHRS1JaI8KGU8pO EseP7zhJvbcrsiaQ4bSzh+ RklOOjwvdGQ+KQRcVNP1cD xlPSdwYWRk aS3xLXLgI8x0BiDqXfG9XB tjN8UpooL7OJNggKUuDFJk vYDOxO4yalizz6qgbehtAc AwMDAwMDt0 TGp2CSKgyRanNsAxVGC1Kf L2QWO2zPYdcV0jySxiekgy gV0bOcj+TVJOOjwvdGQ+PH WiHHZ5hCed AWthWUCweJ9bKADaN9o4Fr FiNpV7NCsqF2QvuiR8WARh kCVaGPDosAALaC8cexpub2 xvcjogIzAw ZGQcETl0HFu2ILJhqYgeDh IkZCH6TsT6QYH0kNJlbH4r wBjhdvvvxS8iCra+UGF5ZX T4QM43US96 D0SvRqineMDfcAM+PHRhYm xlIHdpZHRoPScxMDAlJyBz vDwhTF5kRv9cFMJkRGQbiH xhcHNlOiBj b2x (more content not included)... Normal [facility] Rad - MRI Reporton Rad - MRI Report [id number]#[id number] 0OTGTIFF [facility] MRI LE Joint w/o Contrast Camron leigh 04-23-2022 MRI LE Joint w/o Contrast Right HISTORY: Right hip pain. MRI LE Joint w/o Contrast Right: 04/23/2022 10:59 AM EST COMPARISON: None. TECHNIQUE: Multiplanar, multisequence MRI images of the pelvis and right hip were obtained without contrast. FINDINGS: There appears to be a probable bicornuate uterus. The bone marrow signal intensity is age appropriate. There is a small amount of soft tissue edema along the lateral aspects of the greater trochanters bilaterally. There is no evidence of avascular necrosis or fracture of the right hip. No labral tear or significant chondromalacia of the right hip is seen. There is no iliopsoas bursitis. No gluteal tendinopathy is seen. No muscle edema is identified. 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 IMPRESSION: 1. There is no MRI evidence of avascular necrosis, fracture, or significant degenerative change of the right hip. 2. There is a small amount of soft tissue edema along the lateral aspects of the greater trochanters bilaterally which may be secondary to a mild bilateral greater trochanteric bursitis or iliotibial band friction syndrome in these regions. However, no significant gluteal tendinopathy is seen. 3. 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 Final Dictated by: Shay Roger Dictated DT/TM: 04/24/22 6:57 Signed (Electronic Signature): Shay Roger 04/24/22 8:21 am Technologist: JASPREET [facility] Provider Orderson 04-23-2022 Provider Orders [id number]#[id number] [facility] Coding Summaryon 03-21-2022 [facility] KekzpfcpZXv4rBu+PGhlYW Q+SN6YZXChG59hmWWqnA4Q T9hYCM9KTPKCNREPNR3DIB 4wsUP5FVuyZ9KqhbPl CtifjUWjKB46AJk0GNV8qM woZQxssD5ayAOqC9g7MnTr ZB21pD37WChmMVBaXsL9Ov ZpbjsgbWFy X5bwWxJuzJYyKsl+PHRhYm xlIHdpZHRoPScxMDAlJyBz aOnyRQ8sOe3bQIOkOPZeeK xhcHNlOiBj k2jjTJDkDBjwDA1uhCqhN1 FelTM8AZDqj1l6Ju18zGG+ RJOvRHQ9cNjkONgsx078Mi Zxe6nrIVH2 eBXzLDtvOYP8H06gi8N3XR EaPCDtKYB6pTT0gC4dgXla fmriZ1QlrNRrCpH2HPA8bR RauX9zsXnt daotcW0xQtv+A27TEB6EMG XJYP4KHgr4J1TpMlnbeOD+ DQ01KJZhLA32oAEgtNVvj8 udeCi0UtFc YAXbPMY2rKldEMlvj7LzVQ MrZ25itIJyh1D0QGVxdFlw jOWjWxUkvTO2fQ8zYLgama uyc5bzkyil Mhugd6uffz42nS22O88wDU irPOIqRYK5JHAsQMWvqVmx jp2pdR2kXd8+GNfsf4gga9 zcmLw4MlBn ZHZxwnRcoJgfAPA0g1WjJm 07K3VfpCseo3PcLma6pr73 oUQfv3B8cQD8JTdaFLNioA 7cYIpqYgO0 XNNjClRwmT63xILfQPezSc 2rhZmroGilQP2vXMDcnxlj VDFliY9vLWTjyOXmgZaiFE 4wNTBpbjtm z420UeNuWML1NTFsaIMvR8 AzqG1iEjZeDZDdKQRcB7Br cKSwMCebQ791XEofLfQ0RH GklaSmD8Xe VPEmjMlbFhT8p9N7Xd0Qd2 UpxgwjHYP3YWlmIMAtIoE9 IaOxIpQ2B9OjYqo2KSSckL rsWC0lQ3Gk DSGwhnnxpfemsBJ3DRCfYA PvgG67lMDdPZezKm9ts7F2 r727XZZbLGRkgC62Hx5jkO ogMTBwdCBU tU0uboqlv8ihiqscKqDoFT AbIAq7GLt4TGAvzFgdQyFe AEY4GtL1VQC5fSKrsY3gqL ypvxqhuB1j Oyc+M70olG6hLEA6BXP0ie rpCVShelSlMR61LR41W3Hz PjwvdGFibGU+PGRpdiBzdH ujIP6eLpYx m6fye1YlQHasX7VsFSOuUL twTef9KRNcUBY4sRB4yS4j DBXoBBssl6I1rRY3N9Cgvk Duqd9lo7vc OBHvTXqtP63jgBMmz4C1IK XnuUO8SOXuhDgkOvSyjR07 Oyc+OUWihIbjj3WpFxffd0 miw5oegPn8 WsVrWEUknxPsbAxiMUV8u0 NiOj66S29wFUnfFOFbKZJw PLQkFKNyjXuiwu2vjB9yTb 8+PGNvbCB3 mVM8kH0eQGXvTrV6KYruM7 91YmVrxRUpBdhrz3fka5ph tOz3OhZfAFPjgfTenFjtNZ X5m4OeFc52 Y29bDUonFFZiMDDmTWXhTL OpaQwpuk9ndB1vOh0+PC9j h9arsc97aJ14fIB+PHRkIH Y7cQawRRop DBAahY8vVCjyFlY2WRHtWr XcaX72gWSqGNwmAx5qkRrt gQwdZV0qXHAuphjgm020Mn Rfv3htYIJg nVEkRHsiJEP7R66ta1B3PD OkPZJsLZB2uIT8jT7ntIco bjogbGVmdDsgdmVydGljYW bkKXsaS933 IHRvcDsnPlBhdGllbnQgTm DmNZv7I2ReAak0IZAtdGmw QC5kgLHeUHuhDw3utJwbtH dcCP4oZPYb ygtgz515ClHsg8dtXDFflX GjMHrvNBV4D75ed9W5QLAx JRPqJZU5wNK2lC7zvAbbeg ogbGVmdDsg ukOuwBpfXNqeOOddX509BP RvcDsnPkJpcnRoIERhdGU6 BY53DA28oMEkg8G2jXJ6F9 BhZGRpbmct fikwoKR5CFFbPXAmyL33Wa 1seZodQg0gLPNrVQS0UORw dKYfD4DykF1mLgZrXEOmEZ ZaJ5BfuHNg ABboE106FExxKyV4EWWwlz LvM4YdLOKsfMihIdT0u3O2 Gh9HK4D7HX89JK98iZKne9 K1kUZ9V5Nq XSAztuftjxvunGB5DFNkFS DgqM22Qe9ykFmaSn7sSKNb VDP5LMXtuJBeE4CoyP6oHz AjMDAwMDAw E9UqlVCiYGkbE276DAifDr F3MRYjvgKuI9WxLCEalZmn CoY1r0D5Hp6QHGb8CJ90TS 03mRTtj8R4 xZT2Y1MuGDPucakopbnxtM U3UJMaAOKutD72Sc7iiEua Bq0lUNEdGEE8QKNhsEBuZ0 OxjF8uApHq XHXbBQKiJ4XjgJCkJVfhO5 87AAigBpA9GSQfxlCtA5Dr HIEhaJsqWoS9u5H1Yj6GKC JvWH55XVU0 sQG2VA54GF86C7AbAenzvH FibGU+PHRhYmxlIHdpZHRo ASsqZZKeRiBneIrdGO1vNb 9yZGVyLWNv wGdeeQDxCyDej2osXHFmIE tcZT8qqKzkC0QkyUJ1GUTk g4y4Je91B38wJ2ZglIH+PG EazOF6pCA9 oM7fIySzOoQ7DPrsG891Uq InnGRrOkyfq5aey8vrbZz7 JwZ7BITyolXdyGayWNB6o2 CjUa21W47u IHdpZHRoPSIxNSUiIHZhbG dqwz2dlC8dJt2+PGNvbCB3 hAL7vD2rClEcZbF1DAvdD0 49InRvcCIv Elafs3raf1gsmDf7UgFsQV XxnxXkrOrnHAA0f5TcNj92 H4PftCuob8MgOrk0du53iT Sop3S0fGI1 A0UnUYGkpcvryYCxuEqiHH 9lJQZifstfPYXrwV9aDQXz S3q9GwFsZmC4PAzfE6Feyq R9DUFncLFf JBzbBJY2R39iw3U7LEVyTQ MwRJQ5oOC1wW1bzKamcbji bGVmdDsgdmVydGljYWwtYW ucB260QBZc yEsxSNIncR4mHWRbmSTxhH ijEJ4aSCJbhbmeEmVVIOAW ACncK3QFBZpHTFYJYG79LK 00eGKkw1X7 lNH9P7OuDPLzswbfgjsdoR K0AGDuFBTyuQ54mZCbUBgh Sz3td0Z9s067GAHfGXVuqY 51Kg8lfTnt DWOsmEVKgP2xhvrlj2drvv ttKhJbEMReXUs5KLx3CQVx vPqaKcXoVZI7KgP7IVK6sN OmnD8hqVbk btdjuE3jBnz+MDYvMjYvMT r4DyokvAV+MLFcSRY3aZfb NNjqVTIirK7qTZPhD9i1Si FsPqC0XPln M5OrJUIitvzmWu70cL5iLl YmEaI4JOdtK3BdhuI3EWMz rIBcWTiaGPY1W38hv9Z0PU MwMDAwMDA7 jMW7bM2nzPtthkoitKTwmL zhzpMfjSswNKaeADopH370 IHRvcDsnPjQwIFllYXJzPC 78WZ85sJHf y1L3fHF8A4NgXVTtgocudj relHU1QXSkPJLdcN66wZKv AYatXz8fr6T6h870AINpGX WvvI61Sw9l pPpaUMCemWIYzI4oaqpou0 lqsafuFcZxKWGeGDj2FBb4 DPComVecXaUzTNY9AtC4NC U8qCXfkW6c mIahraqecH6bYcx+RkVNQU cJWV28UZ35hFEcg2R9oFM0 P2BkIHUhinaotsmlmFE6VB UcQJDasE02 vQNrLKxhBj0be9Z3e492DK CkGJQmnE38Wc6kxTcaBYPk cIFXoC6jrapok3rglzduWj AwMDAwMDt0 HLi3VTHttXgdZqOiZGD4Qh B3SDN4qJPgpM3deDbtconn kB2bDdc+Q5Q3C4HcAdkhsX I+DY13LQJy AG19rUQubVPja4umyUe8Qb IhSCMlLWF9bOmvFFzhi9Ge POOzR92ywJPxc3N8HWPwbY xhcHNlOyBl yWO3yM2jJIdorpgpq0reqn haNdzkn2ekwk19yL00Y62u IHdpZHRoPSIzMCUiIHZhbG icpp1mrN4b Ii8+JWQqbCN8wFS8tA9oYx BmRaN7WCwlF310IxSjvEOf Adljq6hrs1zbvFg4GjYlMG IgdmFsaWdu HVN9p9MdPd22B90uPRkqHY OnHMTlVGOyNDFfuSqlln0y jT3iZb2+WK4rc4wkop70tF 48dHI+PHRk ZEI3sUhgEBwiRMGfqR0hXL qcRxF3PPYsRzQijW14tVFm KTzfIz9tlNclaOyyZM2aZC Euqttww834 VmDex7xzDNLgmNLjFYhqFX A0Y85vv3M3TGZzIEHkHXZ6 yFU2bP8raTedcwacqPCmqB sgdmVydGlj LCdgFPcnX051BZYewWutBk IzeSRrP0zuzmCVMV0nLqva dGQ+SDVxUKR9zWjvCBhdTI RldH6hCISa V6q5EmGbHnH5XJbfW1Fmhc B1YXPsxMFoZFNtlIVGuA2u fnbft7iingqdRuSyBXCuPR q4NQf0UJGq sNiuJvKhVOV4ZiD7VSN6rN OegR6bcFfyqoyofV5yGeb+ RklOOjwvdGQ+LMXkDFQ1lC xlPSdwYWRk xN3xRWRyC6i8OuEuDmT6TZ mkP6OfctY6MWDlsVZdXBZx fNWKrI0zppjps4keuohdNm AwMDAwMDt0 YTv6GJMbdTbbVlBfIRW7Lh A8DCO4gSDjuE7uhGifhusj oV2sReg+TVJOOjwvdGQ+PH UwDUJ9tIuf ETsdHGOhwK2xKMJwF7w1No ZxSzB3TJknF0QeqdS7HPIf nDMnDRDliJIEfK9egjlnb9 xvcjogIzAw KMGqWLn6EBl3JVDthIjcUg ZzFOJ5AwE7XGC2fGWstX6x rLbpsldslW0mZkp+UGF5ZX B5YZ47RS07 N7KjUhfhmPLyqJZ+PHRhYm xlIHdpZHRoPScxMDAlJyBz gSxwBX5uWf3cJALoYYNmfW xhcHNlOiBj b2x (more content not included)... [facility] MG MAMM SCREEN 3D ARNAV CADon 01-25-2022 MG MAMM SCREEN 3D ARNAV CAD Patient: SHANTAL GARCIA Exam Date: 01/25/2022 : 1980 Gender:F Ordering : DR YEYO ACKERMAN . Admission #: [id number] Family : Order #: [id number] CLICK HERE TO VIEW EXAM RADIOLOGY REPORT PROCEDURE: MAMMOGRAM SCREENING 3D BILATERAL CAD COMPARISON: None. INDICATIONS: Screening mammography Calculator Name NCI Breast Cancer Risk Assessment Tool 5 Year Breast Cancer Risk 0.50% Lifetime Breast Cancer Risk 9.00% Personal Breast Cancer No Personal Ovarian Cancer No Treatments None Family Cancers Father with skin cancer at age 60. LOCATION: [facility] BREAST COMPOSITION: Heterogeneously dense,which may obscure small masses. FINDINGS: DIAGNOSTIC CATEGORY 1--NEGATIVE. Scattered benign-appearing calcifications are present. Scattered benign-appearing lymph nodes are present. RIGHT BREAST: No significant suspicious finding. LEFT BREAST: No significant suspicious finding. RECOMMENDATIONS: ROUTINE MAMMOGRAM AND CLINICAL EVALUATION IN 12 MONTHS. PLEASE NOTE: A NORMAL MAMMOGRAM DOES NOT EXCLUDE THE POSSIBILITY OF BREAST CANCER. A CLINICALLY SUSPICIOUS PALPABLE LUMP SHOULD BE BIOPSIED. Dictated by: Jimmie Franco MD on 01/25/2022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 alcohol. ? Avoid spicy or fatty foods. General instructions ? Take ptex-lzh-tuqvzkc and prescription medicines only as told by your health care provider. ? Drink enough fluid to keep your urine pale yellow. ? Wash your hands often using soap and water for at least 20 seconds. If soap and water are not available, use hand cafe site attendant. ? Make sure that everyone in your household washes their hands well and often. ? Rest at home while you recover. ? Watch your condition for any changes. ? Take slow and deep breaths when you feel nauseous. ? Keep all follow-up visits. This is important. Contact a health care provider if: ? Your symptoms get worse. ? You have new symptoms. ? You have a fever. ? You cannot drink fluids without vomiting. ? Your nausea does not go away after 2 days. ? You feel light-headed or dizzy. ? You have a headache. ? You have muscle cramps. ? You have a rash. ? You have pain while urinating. Get help right away if: ? You have pain in your chest, neck, arm, or jaw. ? You feel extremely weak or you faint. ? You have persistent vomiting. ? You have vomit that is bright red or looks like black coffee grounds. ? You have bloody or black stools (feces) or stools that look like tar. ? You have a severe headache, a stiff neck, or both. ? You have severe pain, cramping, or bloating in your abdomen. ? You have difficulty breathing, or you are breathing very quickly. ? Your heart is beating very quickly. ? Your skin feels cold and clammy. ? You feel confused. ? You have signs of dehydration, such as: ? Dark urine, very little urine, or no urine. ? Cracked lips. ? Dry mouth. ? Sunken eyes. ? Sleepiness. ? Weakness. These symptoms may be an emergency. Get help right away. Call 911. ? Do not wait to see if the symptoms will go away. ? Do not drive yourself to the hospital. Summary ? Nausea is the feeling that you have an upset stomach or that you are about to vomit. As nausea gets worse, it can lead to vomiting. Vomiting can make you feel weak and cause you to become dehydrated. ? Follow instructions from your health care provider about eating and drinking to prevent dehydration. ? Take ihya-kcs-vkjhysz and prescription medicines only as told by your health care provider. ? Contact your health care provider if your symptoms get worse, or you have new symptoms. ? Keep all follow-up visits. This is important. This information is not intended to replace advice given to you by your health care provider. Make sure you discuss any questions you have with your health care provider. Document Revised: 08/17/2021 Document Reviewed: 08/17/2021 [employer] Patient Education ? 2022 [employer] Vomiting, Adult Vomiting is when stomach contents forcefully come out of the mouth. Many people notice nausea before vomiting. Vomiting can make you feel weak and cause you to become dehydrated. Dehydration can make you feel tired and thirsty, cause you to have a dry mouth, and decrease how often you urinate. Older adults and people who have other diseases or a weak body defense system (immune system) are at higher risk for dehydration. It is important to treat vomiting as told by your health care provider. Follow these instructions at home: Watch your symptoms for any changes. Tell your health care provider about them. Eating and drinking Follow these rec (more content not included)... [facility] Clinical Note 07-10-2022 Note Date & Type Note Facility 07-10-2022 Note Patient Education Ma terials Follows: Postnasal Drip Postnasal drip is the feeling of mucus going down the back of your throat. Mucus is a slimy substance that moistens and cleans your nose and throat, as well as the air pockets in face bones near your forehead and cheeks (sinuses). Small amounts of mucus pass from your nose and sinuses down the back of your throat all the time. This is normal. When you produce too much mucus or the mucus gets too thick, you can feel it. Some common causes of postnasal drip include: ? Having more mucus because of: ? A cold or the flu. ? Allergies. ? Cold air. ? Certain medicines. ? Having more mucus that is thicker because of: ? A sinus or nasal infection. ? Dry air. ? A food allergy. Follow these instructions at home: Relieving discomfort ? Gargle with a salt-water mixture 3?4 times a day or as needed. To make a salt-water mixture, completely dissolve ??1 tsp of salt in 1 cup of warm water. ? If the air in your home is dry, use a humidifier to add moisture to the air. ? Use a saline spray or container (neti pot) to flush out the nose (nasal irrigation). These methods can help clear away mucus and keep the nasal passages moist. General instructions ? Take bpvh-kol-kuorqww and prescription medicines only as told by your health care provider. ? Follow instructions from your health care provider about eating or drinking restrictions. You may need to avoid caffeine. ? Avoid things that you know you are allergic to (allergens), like dust, mold, pollen, pets, or certain foods. ? Drink enough fluid to keep your urine pale yellow. ? Keep all follow-up visits as told by your health care provider. This is important. Contact a health care provider if: ? You have a fever. ? You have a sore throat. ? You have difficulty swallowing. ? You have headache. ? You have sinus pain. ? You have a cough that does not go away. ? The mucus from your nose becomes thick and is green or yellow in color. ? You have cold or flu symptoms that last more than 10 days. Summary ? Postnasal drip is the feeling of mucus going down the back of your throat. ? If your health care provider approves, use nasal irrigation or a nasal spray 2?4 times a day. ? Avoid things that you know you are allergic to (allergens), like dust, mold, pollen, pets, or certain foods. This information is not intended to replace advice given to you by your health care provider. Make sure you discuss any questions you have with your health care provider. Document Revised: 11/21/2020 Document Reviewed: 11/21/2020 [employer] Patient Education ? 2021 [employer] Infectious Disease Upper Respiratory Infection, Adult An upper respiratory infection (URI) is a common viral infection of the nose, throat, and upper air passages that lead to the lungs. The most common type of URI is the common cold. URIs usually get better on their own, without medical treatment. What are the causes? A URI is caused by a virus. You may catch a virus by: ? Breathing in droplets from an infected person's cough or sneeze. ? Touching something that has been exposed to the virus (contaminated) and then touching your mouth, nose, or eyes. What increases the risk? You are more likely to get a URI if: ? You are very young or very old. ? It is [place] or winter. ? You have close contact with others, such as at a daycare, school, or health care facility. ? You smoke. ? You have long-term (chronic) heart or lung disease. ? You have a weakened disease-fighting (immune) system. ? You have nasal allergies or asthma. ? You are experiencing a lot of stress. ? You work in an area that has poor air circulation. ? You have poor nutrition. What are the signs or symptoms? A URI usually involves some of the following symptoms: ? Runny or stuffy (congested) nose. ? Sneezing. ? Cough. ? Sore throat. ? Headache. ? Fatigue. ? Fever. ? Loss of appetite. ? Pain in your forehead, behind your eyes, and over your cheekbones (sinus pain). ? Muscle aches. ? Redness or irritation of the eyes. ? Pressure in the ears or face. How is this diagnosed? This condition may be diagnosed based on your medical history and symptoms, and a physical exam. Your health care provider may use a cotton swab to take a mucus sample from your nose (nasal swab). This sample can be tested to determine what virus is causing the illness. How is this treated? URIs usually get better on their own within 7?10 days. You can take steps at home to relieve your symptoms. Medicines cannot cure URIs, but your health care provider may recommend certain medicines to help relieve symptoms, such as: ? Ystg-kqy-hvmufvw cold medicines. ? Cough suppressants. Coughing is a type of defense against infection that helps to clear the respiratory system, so take these medicines only as recommended by your health care provider. ? Fever-reducing medicines. (more content not included)... [facility] Clinical Note 06-04-2022 Note Date & Type Note Facility 06-04-2022 Note Patient Education Ma terials Follows:Disease Postherpetic Neuralgia Postherpetic neuralgia (PHN) is nerve pain that occurs after a shingles infection. Shingles is a painful rash that appears on one area of the body, usually on the trunk or face. Shingles is caused by the varicella-zoster virus. This is the same virus that causes chickenpox. In people who have had chickenpox, the virus can resurface years later and cause shingles. PHN appears in the same area where you had the shingles rash. The pain usually goes away after the rash disappears. You may have PHN if you continue to have pain 3 months after your shingles rash has gone away. What are the causes? This condition is caused by damage to your nerves due to inflammation from the varicella-zoster virus. The damage makes your nerves overly sensitive. What increases the risk? The following factors may make you more likely to develop this condition: ? Being older than 60 years of age. ? Having severe pain before your shingles rash starts. ? Having a severe rash. ? Having shingles in and around the eye area. ? Having a disease or taking medicine that causes you to have a weakened disease-fighting system (immune system). What are the signs or symptoms? The main symptom of this condition is pain. The pain may: ? Often be severe and may be described as stabbing, burning, shooting, or feeling like an electric shock. ? Come and go, or it may be there all the time. ? Be triggered by light touches on the skin or changes in temperature. You may have itching along with the pain. How is this diagnosed? This condition may be diagnosed based on your symptoms and your history of shingles. Lab studies and other diagnostic tests are usually not needed. How is this treated? There is no cure for this condition. Treatment for PHN will focus on pain relief. Utll-ssr-rnzzwdl pain relievers do not usually relieve PHN pain. You may need to work with a pain specialist. Treatment may include: ? Anti-seizure medicines to relieve nerve pain. ? Antidepressant medicines to help with pain and improve sleep. ? A numbing patch worn on the skin (lidocaine patch). ? Strong pain relievers (opioids). ? Injections of numbing medicine or anti-inflammatory medicines around irritated nerves. ? Injections of botulinum toxin to block pain signals between nerves and muscles. Follow these instructions at home: Medicines ? Take nazp-roc-mhcehls and prescription medicines only as told by your health care provider. ? Ask your health care provider if the medicine prescribed to you: ? Requires you to avoid driving or using machinery. ? Can cause constipation. You may need to take these actions to prevent or treat constipation: ? Drink enough fluid to keep your urine pale yellow. ? Take utqp-uld-vxbdqvj or prescription medicines. ? Eat foods that are high in fiber, such as beans, whole grains, and fresh fruits and vegetables. ? Limit foods that are high in fat and processed sugars, such as fried or sweet foods. Managing pain ? If directed, put ice on the painful area. To do this: ? Put ice in a plastic bag. ? Place a towel between your skin and the bag. ? Leave the ice on for 20 minutes, 2?3 times a day. ? Remove the ice if your skin turns bright red. This is very important. If you cannot feel pain, heat, or cold, you have a greater risk of damage to the area. ? Cover sensitive areas with a bandage (dressing) to reduce friction from clothing rubbing on the area. General instructions ? It may take a long time to recover from PHN. Work closely with your health care provider and develop a good support system at home. You may consider joining a support group. ? Wear loose, comfortable clothing. ? Talk to your health care provider if you feel depressed or desperate. Living with long-term pain can be depressing. ? Keep all follow-up visits. This is important. How is this prevented? Getting a vaccination for shingles can prevent PHN. The shingles vaccine is recommended for people older than age 50. It may prevent shingles and may also lower your risk of PHN if you do get shingles. Contact a health care provider if: ? Your medicine is not helping. ? You are struggling to manage your pain at home. Get help right away if: ? You have thoughts about hurting yourself or others. If you ever feel like you may hurt yourself or others, or have thoughts about taking your own life, get help right away. Go to your nearest emergency department or: ? Call your local emergency services (911 in the [place] ? Call a suicide crisis helpline, such as the National Suicide Prevention Lifeline at . This is open 24 hours a day in the [place] ? Text the Crisis Text Line at 354229 (in the [place] Summary ? Postherpetic neuralgia (PHN) is a very painful disorder that can occur after an episode of shingles. ? The pain is often severe and may be described as stabbing, (more content not included)... [facility] Evaluation note Note Date & Type Note Facility Evaluation note Diagnosis Well woman exam with routine gynecological exam Routine gynecological examination Breast cancer screening by mammogram Depression, unspecified depression type (CMS/HCC) documented in this encounter [facility] Summary Purpose Family History No Family History Records FoundNo Family History Records FoundNo Family History Records FoundNo Family History Records FoundNo Family History Records Found Advance Directives No Advanced Directives Records FoundNo Advanced Directives Records FoundNo Advanced Directives Records FoundNo Advanced Directives Records FoundNo Advanced Directives Records Found Additional Source Comments INFORMATION SOURCE (unrecogn ized section and content) DATE CREATED AUTHOR 05/01/2018 [facility] DATE CREATED AUTHOR AUTHOR'S ORGANIZ ATION 05/01/2018 [facility] DATE CREATED AUTHOR AUTHOR'S ORGANIZ ATION 02/02/2022 [facility] DATE CREATED AUTHOR AUTHOR'S ORGANIZ ATION 01/24/2023 [facility] EPIC DATE CREATED AUTHOR AUTHOR'S ORGANIZ ATION 03/10/2023 [facility] Reason for Visit (unrecogniz ed section and content) Reason Comments Well Women Visit Care Teams (unrecognized sec tion and content) [employer] Relationship Specialty Start Date End Date Alfonso Bai NP [address] [place] [address] PCP - [employer] 05/25/22 Jimmie Tomas MD [address] [place] [address] PCP - General Family Medicine 11/07/22 [employer] Relationship Specialty Start Date End Date Alfonso Bai NP [address] [place] [address] PCP - [employer] 05/25/22 Jimmie Tomas MD [address] [place] [address] PCP - General Family Medicine 11/07/22 FOR RECORDS PERTAINING TO PATIENTS WHO ARE OR HAVE BEEN ENROLLED IN A CHEMICAL DEPENDENCY/SUBSTANCEABUSE PROGRAM, SOME INFORMATION MAY BE OMITTED. This clinical summary was aggregated from multiple sources. Caution should be exercised in using it in the provision of clinical care. This summary normalizes information from multiple sources, and as a consequence, information in this document may materially change the coding, format and clinical context of patient data. In addition, data may be omitted in some cases. CLINICAL DECISIONS SHOULD BE BASED ON THE PRIMARY CLINICAL RECORDS. [email or web address] [facility]. provides no warranty or guarantee of the accuracy or completeness of information in this document.
== END 2024-01-29 20:53 | disposition home or self-care (01) ==
LOC: LAB 20:52
PROVIDERS: Visit Provider Physician Assistant
DX: Z01.419 Encounter for gynecological examination (general) (routine) without abnormal findings (principal)
CPT/HCPCS: 88175

== ENCOUNTER 2025-02-02 21:40 | Outpatient (REF) | payer BC, SELFPAY ==
--- OUTSIDE RECORDS SUMMARY | 2025-02-02 21:44 | XMS_ITS | CCD ---
Author Organization [facility] Care Team Providers Care Hospice Consultant Name Role Phone [email or web address] Attending Unavailable MEKA, DR ORONA Admitting Unavailable MEKA, DR ORONA Attending Unavailable MEKA, DR ORONA Consulting Unavailable MEKA, DR ORONA Admitting Unavailable MEKA, DR ORONA Attending Unavailable MELVIN, DR JIMMIE Dennison Consulting Unavailable MEKA, DR ORONA Consulting Unavailable JAYLA BAI Admitting Unavailable JAYLA BAI Attending Unavailable JIMMIE TOMAS Primary Care Unavailable Be Bradshaw Admitting Unavailable Be Bradshaw Attending Unavailable JIMMIE TOMAS Primary Care Unavailable JAMEY SUN Attending Unavailable JIMMIE TOMAS Primary Care Unavailable JAMEY SUN Admitting Unavailable ANJEL ESTRADA, JAMEY Rodriguez Admitting Unavailable JAMEY SUN Attending Unavailable JIMMIE TOMAS Primary Care Unavailable Kvng Olivares Admitting Unavailash ESTRADA, Kvng Soto Attending Unavaila JIMMIE Calabrese Primary Care Unavailable Bhumika PROTECTION OFFICER, Jayla Houston Unavailable Jimmie Tomas MD Primary Care Provider Jayla Bai NP Unavailable Jimmie Tomas MD Primary Care Provider [phone] Unallocatvirginie SHEA, Noms Provider Primary Care Provi angela JAYLA BAI Referring Unavailable JR. ZHENG GEORGE C Attending Unavaila CHAPINCITO Trevino Attending Unavailable LITO BACH Attending Unavailable CHAPINCITO HERRERA Referring Unavailable MAYLIN HEAD Attending Unavailable MAYLIN HEAD Attending Unavailable MAYLIN HEAD Attending Unavailable MAYLIN HEAD Attending Unavailable MAYLIN HEAD Referring Unavailable PORTIA RAMIREZ Attending Unavailable PORTIA RAMIREZ Attending Unavailable JAYLA BAI Attending Unavailable JAYLA BAI Referring Unavailable Allergies Allergy ClassificationReported Allergen(s)Allergy TypeDate of OnsetReaction(s) Facility (2 sources)Sulfonamides (Antibiotic); Translations: [SULFA (SULFONAMIDE ANTIBIOTICS)]Propensity to adverse reactions to drug (disorder)04-29-2018 [facility] Repository (1 source)Sulfamethoxazole; Translations: [sulfamethoxazole][facility] (20 sources)Sulfonamides (Antibiotic)Drug Ufvowea94-44-7029IjeqjJSGE Healthcare Medications Current Medications MedicationDrug Class(es)DatesSig (Normalized)Sig (Original)acetaminophen 325 mg / HYDROcodone bitartrate 5 mg oral tablet (1 source)Opioid AgonistStart: 05-21-2024 End: 63-38-9279opbd 1 tablet by mouth every six hours for painHYDROcodone- acetaminophen ([place]) 5-325 MG tablet Indications: Acute medial meniscus tear of left knee, initial encounter Take 1 tablet by mouth every 6 (six) hours if needed for severe pain for up to 3 days 12 tablet 05/21/2024 05/24/2024 Active ethinyl estradiol 0.02 mg / levonorgestrel 0.1 mg oral tablet (20 sources)Progestin, Estrogen, Progestin-containing Intrauterine DeviceStart: 12-22-2024 End: 64-51-7681ksigbwuxivzmql-ethinyl estradiol (Aviane, Alesse, Lessina) 0.1-20 MG-MCG tablet Indications: Uses control Take 1 tablet by mouth Daily Skip sugar pills for 3 months and 4th month take pack in its entirety to cycle a total of 3 times yearly. 84 tablet 3 12/22/2024 03/16/2025 ActiveStart: 03-02-2024 End: 43-68-1042cporhuinjzufao-ethinyl estradiol (Aviane, Alesse, Lessina) 0.1-20 MG-MCG tablet Indications: Uses control Take 1 tablet by mouth Daily Skip sugar pills for 3 months and 4th month take pack in its entirety to cycle a total of 3 times yearly. 84 tablet 3 03/02/2024 ActiveStart: 10-23-2023 End: 34-88-3003klobnewruyjnps-ethinyl estradiol (Aviane, Alesse, Lessina) 0.1-20 MG-MCG tablet Indications: Uses control Take 1 tablet by mouth Daily 3 months take b/c for 28 days and on 4th month take b/c for 30 days. Back on 3 months straight b/c for 28 days and 4th month 30 days. Continue rest of year 28 tablet 11 10/23/2023 03/02/2024 Discontinued (Reorder)metroNIDAZOLE 500 mg oral tablet (3 sources)Nitroimidazole AntimicrobialStart: 12-30-2024 End: 90-76-4218yhos 1 tablet by mouth in the morningmetroNIDAZOLE (Flagyl) 500 MG tablet Indications: BV (bacterial vaginosis) Take 1 tablet (500 mg) by mouth in the morning and 1 tablet (500 mg) before bedtime. Do all this for 7 days. Do not drink alcohol while taking this medication. 14 tablet 12/30/2024 01/06/2025 Activesertraline 50 mg oral tablet (20 sources)Serotonin Reuptake InhibitorStart: 06-87-0138wpyk 1 tablet by mouth once dailysertraline (Zoloft) 50 MG tablet Indications: Depression, unspecified depression type Take 1 tablet(50 mg) by mouth Daily 30 tablet 4 12/20/2024 ActiveStart: 79-92-3446loig 1 tablet by mouth once dailysertraline (Zoloft) 50 MG tablet Indications: Depression, unspecified depression type (CMS/HCC) Take 1 tablet (50 mg) by mouth Daily 30 tablet 4 07/20/2024 ActiveStart: 09-09-2023 End: 33-75-1695ngil 1 tablet by mouth once dailysertraline (Zoloft) 50 MG tablet Indications: Depression, unspecified depression type (CMS/HCC) Take 1 tablet (50 mg) by mouth Daily 30 tablet 4 01/29/2024 Active Completed/Discontinued Medications MedicationDrug Class(es)DatesSig (Normalized)Sig (Original)5 ml bupivacaine hydrochloride 5 mg/ml injection (4 sources)Amide Local AnestheticStart: 07-09-2024 End: 07-68-2149ezxdctpncdx PF (Marcaine) 0.5 % injection 1 mLStart: 07-09-2024 End: mL, Injection, Once PRN Procedure, Starting on Fri07/09/24 at 1050, For 1 dose1 ml methylPREDNISolone acetate 40 mg/ml injection (20 sources)CorticosteroidStart: 07-09-2024 End: 25-19-0388rgikgyIBIMCUNfpxbl acetate (DEPO-Medrol) injection 40 mgStart: 07-09-2024 End: 34-08-284164 mg, Intra-articular, Once PRN Procedure, Starting on Fri07/09/24 at 1050, For 1 doseStart: 06-18-2024 End: 26-00-4406vkflocTFQSHTTmwvjp (Medrol Dospak) 4 MG tablets Indications: S/P left knee arthroscopy Follow schedule on package instructions 21 tablet 06/18/2024 12/30/2024 DiscontinuedStart: 76-10-4400lcwvclARIABVVxvsrg (Medrol Dospak) 4 MG tablets Indications: S/P left knee arthroscopy Follow schedule on package instructions 21 tablet 06/18/2024 ActiveStart: 03-01-2024 methylPREDNISolone (Medrol Dospak) 4 MG tablets Indications: Internal derangement of left knee Follow schedule on package instructions 21 tablet 03/01/2024 Active Problems Active Problems Problem ClassificationProblemDateDocumented DateEpisodic/ChronicHeadache; including migraine (1 source)Acute post-traumatic headache, not intractable; Translations: [Acute post-traumatic headache, not intractable]Onset: 86-92-2653LbctvptaGlrvxrawjlvrz and screening for infectious disease (1 source)Encounter for screening for human papillomavirus (HPV); Translations: [ENC SCREENING HUMAN PAPILLOMAVIRUS]Onset: 45-92-5091CbwlmvihQtnxbgssylpa diseases of female pelvic organs (2 sources)Bacterial vaginosis; Translations: [Acute vaginitis]12-30-2024 EpisodicJoint disorders and dislocations; trauma-related (20 sources)Derangement of left knee; Translations: [Unspecified internal derangement of left knee]Onset: 065197-66-0887PbcqrxnIlegs disorders and dislocations; trauma-related (3 sources)Acute tear of medial meniscus of left knee; Translations: [Other tear of medial meniscus, current injury, left knee, initial encounter]03-31-2024 EpisodicMood disorders (2 sources)Depressive disorder; Translations: [Depression, unspecified depression type (CMS/HCC)]49-38-1422AsklhwmPewon female genital disorders (2 sources)Vaginal discharge; Translations: [Other specified noninflammatory disorders of vagina]86-76-7936SpzemdqlJrkhp non-traumatic joint disorders (6 sources)Pain in left knee; Translations: [Pain in joint, lower leg]02-27-2024 EpisodicOther non-traumatic joint disorders (2 sources)Effusion of joint of left knee; Translations: [Effusion, left knee] 74-37-8597KtajhbkcCauan screening for suspected conditions (not mental disorders or infectious disease) (10 sources)Encounter for screening mammogram for malignant neoplasm of breast; Translations: [Encounter for screening for malignant neoplasm of cervix]Onset: 52-73-3859BkymoygkGlvmuwfb codes; unclassified (1 source)Family history of malignant neoplasm of other organs or systems; Translations: [FAM HX MALIG NEOPLASM OTH ORGN/SYS]Onset: 88-36-3791Gzdlavnq Residual codes; unclassified (10 sources)History of arthroscopy of knee joint; Translations: [Other specified postprocedural states]57-52-6683Aelubjfz Past or Other Problems Problem ClassificationProblemDateDocumented DateEpisodic/ChronicHeadache; including migraine (1 source)Headache; including migraineOnset: 91-81-8443Dsuqo connective tissue disease (20 sources)Trochanteric bursitis of right hip; Translations: [Trochanteric bursitis, right hip]Onset: 687724-00-5709UmtpnzqbArcvg non-traumatic joint disorders (20 sources)Hip pain; Translations: [Pain in right hip]Onset: 11-13-2022 44-40-6809Smbypizf Results Test NameValueInterpretationReference RangeFacilityRECURRENT VAGINITIS (HTRX)on 28-28-4246GHEQACKMX IEABQAH89.799AbnormalNOMS HealthcareATOPOBIUM VAGINAE DetectedAbnormalNOMS HealthcareBVAB 2,3 (BACTERIAL VAGINOSIS ASSOCIATED BACTERIA 2, 3); MOBILUNCUS CQL7VZPA HealthcareBVAB 2,3 (BACTERIAL VAGINOSIS ASSOCIATED BACTERIA 2, 3); MOBILUNCUS SPPNot detectedNOMS HealthcareCANDIDA ALBICANS, PARAPSILOSIS, ABGXNWWXGM3YCHW HealthcareCANDIDA ALBICANS, PARAPSILOSIS, TROPICALISNot detectedNOMS HealthcareCANDIDA KZHFLPOP5JUIN HealthcareCANDIDA GLABRATANot detectedNOMS HealthcareCANDIDA PFXRCQ8RGRD HealthcareCANDIDA KRUSEI Not detectedNOMS HealthcareCHLAMYDIA SJEWIXQVDPO1KJAL HealthcareCHLAMYDIA TRACHOMATISNot detectedNOMS HealthcareERMB, C; MEFA21.34AbnormalNOMS Healthcare ERMB, C; MEFADetectedAbnormalNOIN HealthcareGARDNERELLA WNJSIHGVE97.20Abnormal [facility] HealthcareGARDNERELLA VAGINALISDetectedAbnormalNOIN Healthcare Interpretation and review of laboratory resultsAbnormalNOIN Healthcare MEGASPHAERA (TYPES 1, 2)0NOMS HealthcareMEGASPHAERA (TYPES 1, 2)Not detectedNOMS HealthcareMYCOPLASMA DEJDKGXIZS5TTSF HealthcareMYCOPLASMA GENITALIUMNot detected [facility] HealthcareNEISSERIA TCERKSYPYYS5RJED HealthcareNEISSERIA GONORRHOEAENot detectedNOMS HealthcareTET B, TET M21.829AbnormalNOMS HealthcareTET B, TET M DetectedAbnormalNOIN HealthcareTRICHOMONAS KQEKUAQAD4XYOS HealthcareTRICHOMONAS VAGINALISNot detectedNOIN HealthcareNOIN HealthcareXR Knee - left 1 or 2 Viewson 35-61-4091Ppnajpu Result: AP and lateral Left knee: Weight bearing No acute fracture or dislocation No obvious effusion or soft tissue swelling, weight bearing joint lines well preserved. Small Bony prominence at tibial tubercle ( patella tendon insertion) very radiolucent without significant spur or avulsion injury. Impression: No acute process left knee. [facility] HospitalRadiology Study observation (narrative)[facility] Informationon 10-09-9930JckgmnzNATALIE Crowe 07/09/2024 10:52 AM L Inj/Asp: L knee on 07/09/2024 10:50 AM Indications: pain Details: 22 G needle, anterolateral approach Medications: 40 mg methylPREDNISolone acetate 40 MG/ML; 1 mL bupivacaine PF 0.5 % Outcome: tolerated well, no immediate complications UTILIZING ASEPTIC TECHNIQUE PT GIVEN INJECTION IN LEFT KNEE, NEUROVASC INTACT S/P INJ, TOLERATED WELL Procedure, treatment alternatives, risks and benefits explained, specific risks discussed. Consent was given by the patient. [facility] HospitalMR KNEE LEFT WO IV CONTRASTon 70-18-9663BM KNEE LEFT WO IV CONTRASTExam: MR KNEE LEFT WO IV CONTRAST History: Knee pain since injury Technique: Multiplanar multisequence MRI of the knee was performed without contrast. Comparison: Radiographs March 01, 2024 Findings: Quadriceps and patellar tendons are intact. Trace joint effusion. Anterior and posterior cruciate ligaments are intact. 7 mm hyperintense T2 focus within the distal fibers of the anterior ligament most likely represents an intrasubstance ganglion. The medial collateral ligament, lateral collateral ligament, and popliteus are intact. The medial and lateral meniscus are intact. There is a tiny focus of vertically oriented hyperintense signal within the posterior horn/root of the medial meniscus as seen on sagittal fat-suppressed proton density series 4 image 15. The lateralmeniscus is intact. Popliteal fossa structures are intact. No Joyner cyst. IMPRESSION: Possible vertical longitudinal tear of the posterior horn/root of the medial meniscus. ELECTRONICALLY SIGNED BY: Milvia RegaladoMR Knee - left WO contraston 03-19-2024 Possible vertical longitudinal tear of the posterior horn/root of the medial meniscus. ELECTRONICALLY SIGNED BY: JATINDER RegaladoExam: MR KNEE LEFT WO IV CONTRAST History: Knee pain since injury Technique: Multiplanar multisequence MRI of the knee was performed without contrast. Comparison: Radiographs March 01, 2024 Findings: Quadriceps and patellar tendons are intact. Trace joint effusion. Anterior and posterior cruciate ligaments are intact. 7 mm hyperintense T2 focus within the distal fibers of the anterior ligament most likely represents an intrasubstance ganglion. The medial collateral ligament, lateral collateral ligament, and popliteus are intact. The medial and lateral meniscus are intact. There is a tiny focus of vertically oriented hyperintense signal within the posterior horn/root of the medial meniscus as seen on sagittal fat-suppressed proton density series 4 image 15. The lateralmeniscus is intact. Popliteal fossa structures are intact. No Joyner cyst. YULIANAStDank moe, - 03/19/2024 Exam: MR KNEE LEFT WO IV CONTRAST History: Knee pain since injury Technique: Multiplanar multisequence MRI of the knee was performed without contrast. Comparison: Radiographs March 01, 2024 Findings: Quadriceps and patellar tendons are intact. Trace joint effusion. Anterior and posterior cruciate ligaments are intact. 7 mm hyperintense T2 focus within the distal fibers of the anterior ligament most likely represents an intrasubstance ganglion. The medial collateral ligament, lateral collateral ligament, and popliteus are intact. The medial and lateral meniscus are intact. There is a tiny focus of vertically oriented hyperintense signal within the posterior horn/root of the medial meniscus as seen on sagittal fat-suppressed proton density series 4 image 15. The lateralmeniscus is intact. Popliteal fossa structures are intact. No Joyner cyst. IMPRESSION: Possible vertical longitudinal tear of the posterior horn/root of the medial meniscus. ELECTRONICALLY SIGNED BY: Dank Martin DO [facility] CenterRadiology Study observation (narrative)[facility] Knee - left WO contrastOrdered By: Dank Martin on 81-43-2236FFMA [employer] Work Phone: XR Knee - left 1 or 2 Viewson 01-35-5985Yegvmrq Result: X-rays standing AP and lateral show normal alignment to the knee there was no gross evidence of joint space narrowing, no evidence of flattening of the articular surfaces or marginal osteophytes. There was no evidence of fracture or dislocation. Bony structures in the visual field appeared to be well ossified. Impression: No acute bony process, left kneeAlvin J. [facility]item[facility] Knee - left 1 or 2 ViewsOrdered By: Jr. Zheng on 55-13-6194TBNOSaint John's Breech [facility] Center Work Phone: XR Knee - left 1 or 2 Viewson 90-11-4823Jnbpmqgfq Study observation (narrative)[facility] Medical CenterIGP,APTIMA HPV,AGE GDLNon 02-06-2024 AGE GDLN ACOG TESTINGNote.[facility] CenterComment on above:TESTS RESULT FLAG UNITS REF RANGE LAB Clinician Provided Cytology Information Source.............Cervix;Endocervix No. of containers..01 ThinPrep Vial Age [place] TREADWELL Ernestina... 3065 FLAG LEGEND: L-Low Normal,H-High Normal,LL-Alert Low,HH-Alert High <-Panic Low,>-Panic High,A-Abnormal,AA-Critical Abnormal Performed at: 01 =[address] [address] Dayana Leon MD, HPV APTIMANegativeNegativeNOMS HealthcareComment on above:This nucleic acid amplification test detects fourteen high- risk HPV types (16,18,31,33,35,39,45,51,52,56,58,59,66,68) without differentiation. Performed at: =[address] [id number] Material Yard Clerk: Dayana Leon MD, Phone: [phone] Performed at: [address] [id number] Material Yard Clerk: Barbie Wyatt MD, Phone: [phone] IGP, APTIMA HPV, RFX 16/18,45Note.NOMS HealthcareComment on above:TESTS RESULT FLAG UNITS REF RANGE LAB DIAGNOSIS: 02 NEGATIVE FOR INTRAEPITHELIAL LESION OR MALIGNANCY. Specimen adequacy: 02 Satisfactory for evaluation. Endocervical and/or squamous metaplastic cells (endocervical component) are present. Performed by: Tee Shi Safe Technician . 02 Note: Note 03 The Pap smear is a screening test designed to aid in the detection of premalignant and malignant conditions of the uterine cervix. It is not a diagnostic procedure and should not be used as the sole means of detecting cervical cancer. Both false-positive and false-negative reports do occur. Test Methodology: Note 03 This liquid based ThinPrep(R) pap test was screened with the use of an image guided system. HPV Genotype Reflex Note 02 Criteria not met, HPV Genotype not performed. FLAG LEGEND: L-Low Normal,H-High Normal,LL-Alert Low,HH-Alert High <-Panic Low,>-Panic High,A-Abnormal,AA-Critical Abnormal Performed at: [address] [facility] [address] [address] Barbie Wyatt MD, 03 WB [facility] [address] [address] Dayana Leon MD, BRUSH-SPATULA CERVIX ENDOCERVIX CLINISYNCNOMS HealthcareCoding Summaryon 19-34-3764Gdauxp SummaryHTMLBase 64 CmzovjouGCp8iLa+PGhlYWQ+UU2NMLIbD60zmXNncT4lU9ABRLvEGovoKKJYLLjCHbTiifVrJI8qjMRh ZXJu [file] IGN (more content not included)...NormalMagruder HospitalCoding Summaryon 28-09-1254Bucghx SummaryHTMLBase 64 BftqidweBPe9vJt+PGhlYWQ+DG6OKVUnN14ygAYouN0cC2CWWQyMLczbTAHEILmOZuXdizVjTX2iyMPb ZXJu [file] bGx (more content not included)...NormalRegency Hospital Cleveland Eastuder HospitalCoding SummaryHTMLBase 64 AzfzqegfYZr9qAt+PGhlYWQ+AY5KWKFkG56jlGZnqU9zZ3AZKUsXMhoyHHYCUPwXZjOkvgHkUL4bfVUi ZXJu [file] bGx (more content not included)...[facility] Urineon 02-21-2023 UrineUrine Culture ordered as a result of parameters set on specific urine dip and urine microsopic results. <10,000 cfu/mlNTogus VA Medical CenterComment on above:Performed By: #### [id number], [id number], [id number], [id number] ####[facility] (DEFAULT)[address] [place] [address]Gxxybyn Formson 00-19-2255Juhccqj Forms [id number]#1.00OTGTIFFAshtabula General HospitalED Clinical Summaryon 94-66-4845IJ Clinical [facility] - Emergency Department [address] [place] [id number] ED Clinical Summary PERSON INFORMATION Name: RIYA GARCIA Age: 42 Years Sex: FEMALE : 1980 MRN: Acct#: Visit Reason: Medical problem reevaluation; Abdominal pain reevaluation; Nausea and vomiting; Abdominal pain; VOMITING, ABD PAIN, BODY ACHES Arrival: 02/19/2023 17:54:42 Discharge: 02/19/2023 22:00:00 LOS: 000 04:06 Check In: 02/19/2023 17:54:42 Checkout:02/19/2023 22:00:00 Address: [address] [place] [address] PCP: JIMMIE TOMAS PROVIDER INFORMATION Provider Role Assigned Unassigned Susan Ramirez CHIEF COMPLIANCE OFFICER Nurse 02/19/2023 18:17:25 Tomás Mclean CHIEF COMPLIANCE OFFICER Nurse 02/19/2023 19:14:40 Be Bradshaw DO ED [...] PATIENT EDUCATION INFORMATION Instructions: Viral Gastroenteritis, Adult, Bksf-uh-Eusz; How to Take Your Blood Pressure; Abdominal Pain, Adult Follow-Up: With: Address: When: JIMMIE TOMAS [address] [place] [address] In 2 days 02/21/2023, only if [...] Enteritis; Viral illness Patient Understands: Yes - Patient/family/caregiver verbalizes understanding of instructions given Comment:[facility] HospitalED Patient Summary 72-64-0364HG Patient Summary [facility] - Emergency Department [address] [place] [address] PATIENT DISCHARGE INSTRUCTIONS Patient Information Name: RIYA GARCIA Age: 42 Years Date of : 1980 Reason For Visit: Medical problem reevaluation; Abdominal pain reevaluation; Nausea and vomiting; Abdominal pain; VOMITING, ABD PAIN, BODY ACHES Arrival Time: 02/19/2023 17:54:42 Primary Care Physician: JIMMIE TOMAS Attending Physician: Be Bradshaw DO Comment: Visit Diagnosis: Diagnoses This Visit Abdominal pain ([id number]) Abdominal pain reevaluation ([id number]) Blood pressure elevated without history of HTN (R03.0) Enteritis (K52.9) Medical problem reevaluation ([id number]) Nausea & vomiting (R11.2) Nausea and vomiting ([id number]) RLQ abdominal pain (R10.31) Viral illness (B34.9) The Pharmacy at [facility] is open Friday through Friday from 9A to 6P and Friday and Friday from 9A to 5P Prescription Information: If you have been given a prescription for narcotics, seek immediate medical attention if you have any difficulty breathing or any sudden status changes such as confusion andsleepiness. If you or anyone you know is experiencing suicidal thoughts, mental health, alcohol and/or drug addiction problems; contact the [facility] 16/09 Crisis Hotline -Text 4HGQJ ou 016865. If you received any narcotics, sedation, or [...] legal documents With: Address: When: JIMMIE TOMAS [address] [place], [place] [id number] In 2 days 02/21/2023, only if needed [...] and treatment you received today in the [facility] Emergency Department were for an urgent problem and are not intended as complete care. It is important for you to follow up with a doctor, nurse practitioner, or physician?s assistant director of nursing for ongoing care. If your symptoms become worse or you donot improve as expected and you are unable [...] so we can reach you if necessary. [facility] Emergency Department has provided you with a complete list of medications post discharge. Please inform your cephalometric technician/provider of your visit and for further instruction on these medications. Any specific questions regarding your chronic medications and dosages should be discussed with your primary care physician(s) and/or pharmacist. New Medications [id number], [address], [place] [id number], [phone] ondansetron (ondansetron 4 mg oral tablet, disintegrating) 1 tab(s) Oral (given by mouth) Every 8 hours (scheduled) as needed as needed for nausea/vomiting. Refills: 0. Additional medications on your home medication list not specifically addressed. Please contact the ordering physician if you have questions about these medications. ethinyl estradiol-levonorgestrel (Aviane) 1 tab(s) Oral (given by mouth) every day. ondansetron (ondansetron 4 mg oral tablet, disintegrating) 1 tab(s) Oral (given by mouth) 2 times aday (scheduled) as needed Nausea. Refills: 0. sertraline (Zoloft 50 mg oral tablet) 1 tab(s) Oral (given by mouth) every day. Refills: 3. Visit Information Allergies: Substance Reaction Symptoms Type Comments sulfamethoxazole Drug Vital Signs: Vitals and Measurements this Visit (last (more content not included)...[facility]carawas HospitalElectronic Messagingon 11-01-1520Cnsodnoxgg Messaging--- --- --- --- --- --- --- --- --- From: Fany (Franklyn), Directtest To: RIYA GARCIA Sent: 02/20/23 08:38:24 AM EST Subject: Discharge Summary Ready to View A summary regarding your recent visit is available in the Documents section of your Health Record.[facility].Auto Diff 1on 77-39-2273[facility] %15 %High1-12[facility] HospitalComment on above:Performed By: #### [id number], [id number], [id number], [id number], [id number], [id number], [id number] ####[facility] (DEFAULT)[address] [place], [place] [address]Mfdx Abs#0.0 j24Lfnhkm 0.0-0.2Magru[facility] center HospitalComment on above:Performed By: #### [id number], [id number], [id number], [id number], [id number], [id number], [id number] ####[facility] (DEFAULT)[address] [place], [place] [address]Fceisdnfj/100 WBC (Bld) 0.7 %Normal0.2-2.0[facility] HospitalComment on above:Performed By: #### [id number], [id number], [id number], [id number], [id number], [id number], [id number] ####[facility] (DEFAULT)[address] [place] [address] 18039Wcq Abs# 0.0 e07Gbjbpv1.0-0.4Magruder HospitalComment on above:Performed By: #### [id number], 7817947793, 29131965, 4936098515, 3182575555, 9038611, 2441386508 ####[facility] (DEFAULT)[address] [place] [address] 00545 Eosinophils/100 WBC (Bld)0.0 %Low0.9-4.0Magruder HospitalComment on above: Performed By: #### [id number], 4329838464, 85533784, 9337585885, 0857216568, 9034616, 0149833696 ####[facility] (DEFAULT)[address] [place] [address] 05510Jsdar Abs#0.5 z77Tac8.3-2.9[facility] HospitalComment on above: Performed By: #### 5354238613, 3802967861, 95024406, 6254617204, 4805007310, 4519882, 7115915304 ####[facility] (DEFAULT)[address] [place] [address] 68516Gjvcpdzdkcu/100 WBC (Bld)8 %Ems70-72Krqdrexk HospitalComment on above:Performed By: #### 5075294827, 3450542438, 20916035, 4431416480, 1931022563, 1142208, 5712390200 ####[facility] (DEFAULT)[address] [place] [address] 49241Octh Abs#0.9 p52Pjyp3.0-0.8[facility] HospitalComment on above:Performed By: #### 8770327034, 3999488983, 61379154, 2437558216, 2528803052, 4185631, 7978119564 ####[facility] (DEFAULT)[address] [place] [address] 61002Xbmn Abs#4.6 r70Xhxxbf2.5-9.2[facility] Comment on above:Performed By: #### 7600593049, 1851779357, 69954639, 1411021486, 2659345065, 8975912, 7668597642 ####[facility] (DEFAULT)[address] [place] [address] 94744Umkydsmevuo/100 WBC (Bld)76 %Duturq27-76 [facility] HospitalComment on above:Performed By: #### [id number], 3008159791, 62173058, 5124868898, 1767432030, 1233396, 2416318655 ####[facility] (DEFAULT)[address] [place] [address] 14144XLT w/ Auto Diffon 02-19-2023 Erythrocyte distribution width (RBC) [Ratio]12.9 %Rmyfkz24.5-15.0[facility] HospitalComment on above:Performed By: #### [id number], 2135747551, 08071561, 0504500153, 6591033860, 1378142, 9659294826 ####[facility] (DEFAULT)[address] [place] [address] 57413Grbdqhxagv (Bld) [Volume fraction]39.2 % Jxnqqu89.7-40.4[facility] HospitalComment on above:Performed By: #### [id number], 5303729014, 24236221, 8978252975, 9882658896, 6481380, 8422477928 ####[facility] (DEFAULT)[address] [place] [address] 60473Hbvybmrmhd (Bld) [Mass/Vol]13.4 g/vAMheheg95.3-15.9[facility] HospitalComment on above:Performed By: #### 6889459734, 6732648118, 29238911, 3498802642, 9489618886, 2168521, 0941975302 ####[facility] (DEFAULT)[address] [place] [address] 08601Uvd Diff?AutoInvalid Interpretation CodeWadsworth-Rittman Hospital HospitalComment on above: Performed By: #### [id number], 0340138640, 76291874, 7896452982, 2162222700, 0270237, 0238662894 ####[facility] (DEFAULT)[address] [place] [address] (RBC) [Entitic mass]30 plLkxpzw07-37[facility] Comment on above:Performed By: #### 5445674561, 2442445338, 01552322, 3194438251, 4421237524, 7944152, 8188725194 ####[facility] (DEFAULT)[address] [place], [place] [address]HC (RBC) [Mass/Vol]34 g/eWVknkpi26-93 [facility] HospitalComment on above:Performed By: #### 7039003189, 0465399099, 89995257, 2058867820, 8805309941, 9506812, 1134733176 ####[facility] (DEFAULT)[address] [place], [place] [address]V (RBC) [Entitic vol]88 fL Wpgcrf59-903Zavcrqbk HospitalComment on above:Performed By: #### 3937248585, 0085244689, 18969465, 2830794746, 6764464967, 0375277, 5295888499 ####[facility] (DEFAULT)[address] [place] [address] 38633Nwrodzed384 g81Horpaj 138-427[facility] HospitalComment on above:Performed By: #### 3534789801, 2371206230, 80219601, 8046821529, 7007809049, 5777768, 0286861219 ####[facility] (DEFAULT)[address] [place] [address] 60467Pkbyzcxj mean volume (Bld) [Entitic vol]9.3 fLNormal6.3-10.2[facility] HospitalComment on above: Performed By: #### 4544500693, 2654402414, 85707590, 7832413427, 3975948102, 7818376, 9618900553 ####[facility] (DEFAULT)[address] [place] [address] 38836OOB7.47 h78Ccdegx2.70-5.30[facility] HospitalComment on above: Performed By: #### 6589930014, 5168430672, 32718373, 7203140049, 0992157678, 8067485, 3368331435 ####[facility] (DEFAULT)[address] [place] [address] 94763TIL4.1 n59Xqqbvj0.5-10.5[facility] HospitalComment on above: Performed By: #### 6292520771, 8488370429, 35471408, 8032913088, 8731996931, 3342992, 7875153337 ####[facility] (DEFAULT)[address] [place] [address] 08196QFR Standardon 08-95-0527uOEZ Non AA>60Invalid Interpretation CodeWadsworth-Rittman Hospital HospitalComment on above:Performed By: #### [id number], 6969425602, 38385522, 7860369417, 3146889546, 1786483, 0972035355 ####[facility] (DEFAULT)[address] [place] [address] 24993hLAD AA>60Invalid Interpretation CodeWadsworth-Rittman Hospital HospitalComment on above:Performed By: #### [id number], 2143613177, 00734062, 3946224647, 9917554745, 7509241, 2883735062 ####[facility] (DEFAULT)[address] [place] [address] 93235Qvtvvhi [Mass/Vol]4.0 g/dLNormal 3.5-5.0[facility] HospitalComment on above:Performed By: #### [id number], 3841559041, 24366982, 7042104181, 8178492720, 6612479, 4486789578 ####[facility] (DEFAULT)[address] [place] [address] 02055Ejvrreu/Globulin [Mass ratio]1.1 {ratio}Low1.4-2.6[facility] HospitalComment on above:Performed By: #### 3572334143, 3998487227, 95058083, 7831313812, 5326451914, 1815930, 8970189170 ####[facility] (DEFAULT)[address] [place] [address] 34513Eqa Phos68 IU/DYjlxcd31-85Uanjnlov HospitalComment on above:Performed By: #### 1512695995, 2672220647, 03897529, 8322420936, 5583539523, 5747846, 2962239180 ####[facility] (DEFAULT)[address] [place] [address] 54595TJP [Catalytic activity/Vol]25.0 U/RJnunjv65.0-54.0[facility] HospitalComment on above:Performed By: #### 3855869754, 3743406571, 60593854, 4509636362, 5057507235, 2836821, 9437409088 ####[facility] (DEFAULT)[address] [place] [address] 40015Zoess gap [Moles/Vol]12.5 mmol/LNormal5.0-19.0[facility] HospitalComment on above:Performed By: #### 4149683525, 5092255422, 77550710, 0942948387, 0560873896, 8758288, 6968876804 ####[facility] (DEFAULT)[address] [place] [address] 13853RCV [Catalytic activity/Vol]39 U/SOnmnhv46-24 [facility] HospitalComment on above:Performed By: #### 2402632332, 8387964132, 26205269, 8310001030, 2737156814, 5230204, 6744381372 ####[facility] (DEFAULT)[address] [place] [address] 83709Veup Total0.4 mg/dLNormal0.3-1.2 [facility] HospitalComment on above:Performed By: #### 2470381639, 1861010078, 05193362, 1037900533, 8251874410, 1542011, 5340697538 ####[facility] (DEFAULT)[address] [place] [address] 81127Djwiyiz [Mass/Vol]8.8 mg/dLLow 8.9-10.3[facility] HospitalComment on above:Performed By: #### 4077952414, 8970066289, 88473100, 9689630840, 5176117280, 0395702, 0565276953 ####[facility] (DEFAULT)[address] [place] [address] 55812Agxbyhsl [Moles/Vol]105 mmol/PBchpii707-503Itxitjbg HospitalComment on above:Performed By: #### 1612764506, 0579134273, 42985335, 2988916292, 7440068258, 0242345, 9849703440 ####[facility] (DEFAULT)[address] [place] [address] 60436ME2 [Moles/Vol]20 mmol/CYrg52-94Sxcnkaeb HospitalComment on above:Performed By: #### 4967021886, 4517090283, 61572499, 3261763878, 3306104711, 7782098, 1299978085 ####[facility] (DEFAULT)[address] [place] [address] 12542Rewnvldbun [Mass/Vol]0.52 mg/dLLow0.60-1.30[facility] HospitalComment on above:Performed By: #### 3439320169, 8977135290, 96291805, 6381451955, 3502890507, 8599299, 9202376651 ####[facility] (DEFAULT)[address] [place] [address] 29447Mmhkjjzj (S) [Mass/Vol]3.4 g/dLNormal1.5-4.3[facility] HospitalComment on above:Performed By: #### 3570329838, 6207057474, 05536925, 9457672816, 4330130708, 2077326, 8818917011 ####[facility] (DEFAULT)[address] [place] [address] 18603Kvpthms [Mass/Vol]92.0 mg/qWBnqsyr24.0-118.0[facility] HospitalComment on above:Performed By: #### 8662244007, 6649470111, , , 0780898213, 7820240, 6264963825 ####[facility] (DEFAULT)[address] [place] [address] 90013Cdluesdakm085 mOsm/LInvalid Interpretation CodeWadsworth-Rittman Hospital HospitalComment on above:Performed By: #### 9168771116, 5110687258, 82627394, , 8409655781, 8355461, 9512514409 ####[facility] (DEFAULT)[address] [place] [address] 83767Jkkxfmgdd [Moles/Vol]3.5 mmol/L Low3.6-5.1[facility] HospitalComment on above:Performed By: #### 1574103922, 2355873850, 49184469, 6791183364, 3922246497, 1225198, 7476611680 ####[facility] (DEFAULT)[address] [place] [address] 26135Evmoyng [Mass/Vol]7.4 g/dLNormal6.5-8.1M[facility] HospitalComment on above:Performed By: #### 6035579009, 9759897769, 49201840, 9892533351, 1721402271, 3657872, 8895040070 ####[facility] (DEFAULT)[address] [place] [address] 93742Xohfdi [Moles/Vol]134.0 mmol/FHtl171.0-144.0[facility] HospitalComment on above:Performed By: #### 2673680770, 8531330852, 32029981, 2852224029, 5441803685, 2446894, 8574249935 ####[facility] (DEFAULT)[address] [place] [address] 88074Degy nitrogen [Mass/Vol]9 mg/dLNormal8-26[facility] HospitalComment on above: Performed By: #### 5492236556, 8386153124, 91857704, 4510301779, 1343076597, 7462353, 0279633167 ####[facility] (DEFAULT)[address] [place] [address] 87121Rlqc nitrogen/Creatinine [Mass ratio]17.3 mg/mgHigh4.6-16.2 [facility] HospitalComment on above:Performed By: #### 1893764562, 2795268618, 91218524, 2173496213, 9832129243, 4272528, 0375194052 ####[facility] (DEFAULT)[address] [place], [place] [address]GN Abdomen/Pelvis w/ Contraston 96-61-3280KV Abdomen/Pelvis w/ ContrastCLINICAL HISTORY: Right lower quadrant pain, nausea and vomiting since yesterday. COMPARISON: None available. TECHNIQUE: Multiple contiguous axial images of the abdomen and pelvis were obtained following intravenous administration of 100 mL Omnipaque 350 contrast. Multiplanar reconstructions were acquired atthe CT console. All CT scans at this [...] Miki Francisco MD 02/20/23 8:41 am Technologist: [facility] Clinical Summaryon 10-01-8050QD Clinical [facility] ? Urgent Care [address] [place] [address] Clinical Summary PERSON INFORMATION Name: RIYA GARCIA Age: 42 Years Sex: FEMALE : 1980 MRN: Acct#: Visit Reason: Fever; UC - Cough; Body aches; VOMITING, COUGH, BODY ACHES Arrival: 02/19/2023 16:41:39 Discharge: 02/19/2023 17:55:00 LOS: 000 01:14 Check In: 02/19/2023 16:41:39 Checkout: 02/19/2023 17:55:00 Address: [address] [facility] [address] PCP: JIMMIE TOMAS PROVIDER INFORMATION Provider Role [...] Vomiting, Adult; Vomiting, Adult Follow-Up: With: Address: When: JIMMIE TOMAS [address] [place] [address] [facility] (1) Within 2 to 4 days Comments: Continue with oral Zofran for any nausea. Continue Tylenol for aches and pains. If you are having increasing abdominal pains, fevers intractable vomiting you need further evaluation the emergency department. You also be getting Zofran for nausea as discussed. DIAGNOSIS: Body aches; Cough; Vomiting Patient Understands: Yes - Patient/family/caregiver verbalizes understanding of instructions given Comment:[facility] - Physicianon 76-90-3264CT Note - PhysicianPatient: RIYA GARCIA Age: 42 years Sex: FEMALE : [...] she has RLQ pain, vomiting and some diarrhea.Last emesis was about 1h ago, Last diarrhea was earlier today 02/19/2023 16:56 EST Chief Complaint since Ronnell, cough, body aches, fever and nausea . [...] , 21 FEB 2023, Launch Orders Pharmacy: [facility] Tab ondansetron 4 mg ODT Tab (Order): 1 packet(s), Oral, Once. Reexamination/ Reevaluation Vital signs Patient was endorsed from the care of Dr. Bradshaw, to this current position, and after CAT scan, thepatient states she is feeling better after the [...] necessary. Impression and Plan Diagnosis Viral illness (DCG32-EX B34.9, Discharge, Medical) Enteritis (GAP54-DZ K52.9, Discharge, Medical) Plan Condition: Improved, Abd soft, no mass, not tender//Omley. Disposition: Discharged: time 02/19/2023 21:46:00. Patient was given the following educational materials: How to Take Your Blood Pressure, Abdominal Pain, Adult, Viral Gastroenteritis, Adult, Bomr-qy-Eqjc. Follow up with: JIMMIE TOMAS In 2 days 02/21/2023, only if needed Take Zofran as needed for nausea Use Tylenol and Motrin every 8 hours as needed for pain relief Drink plenty of fluids with el (more content not included)...[facility]-Nursingon 75-99-7635UX Note-NursingPt was seen in UC with complaints of being sick since Friday with nausea/vomiting and abdominal pain (RLQ) Pt was given Zofran ODT in , tested negative for COVID, Flu and preg. Pt states that her CXR was neg but PA said that she was dehydrated. Pt states that he last emesis was about 1h prior to arrival to ER and last diarrhea stool was earlier today. [facility]ursingPT. C/O of abdominal pain, nausea and vomiting that started yesterday. PT. last vomited prior to arrival. PT. was seen in / where they did a urine, Covid, and x ray. Pt. is A&OX 4. PT. has a steady gait. [facility]-[address] [place], [place] [address]ED Patient Summaryon 10-99-5154ZK Patient [facility] ? Urgent Care [address] [id number] PATIENT DISCHARGE INSTRUCTIONS Patient Information Name: RIYA GARCIA Age: 42 Years Date of : 1980 Reason For Visit: Fever; UC - Cough; Body aches; VOMITING, COUGH, BODY ACHES Arrival Time: 02/19/2023 16:41:39 Primary Care Physician: JIMMIE TOMAS Attending Physician: JAMEY SUN Comment: Patient Education With: Address: When: JIMMIE TOMAS [address] [place] [address] Business (1) Within 2 to 4 [...] you are about to vomit. As nausea getsworse, it can lead to vomiting. Vomiting is when stomach contents forcefully come out of your mouthas a result of nausea. Vomiting can make [...] added (diluted fruit juice). ? Eat bland, ygfa-qx-vbhsvt foods in small amounts as you are able. These foods include bananas, applesauce, rice, lean meats, toast, and crackers. ? Avoid fluids that contain a lot of sugar or caffeine, such as energy drinks, sports drinks, and soda. ? Avoid alcohol. ? Avoid spicy or fatty foods. General instructions ? Take briv-iwm-ehxlhpq and prescription medicines only as told by your health care provider. ? Drink enough fluid to keep your urine pale yellow. ? Wash your hands often using soap and water for at least 20 seconds. If soap and water are not available, use hand recreation coordinator. ? Make sure that everyone in your [...] and drinking to prevent dehydration. ? Take hptb-mxd-yvvcpoz and prescription medicines only as told by [...] Revised: 08/17/2021 Document Revi (more content not included)...Normal [facility] HospitalExBaylor Scott & [facility] 75-43-3730Zhhw CollectedYesInvalid Interpretation [facility] CenterComment on above:Performed By: #### [id number], 2699036301, 07793449, 6332859513, 4827652596, 5266769, 4877120482 #### [facility] (DEFAULT) [address] [place], [place] [address]Zflbggdft By: #### [id number], 6958878422, 70473634, 4513951289, 5311230128, 8893369, 6795932501 ####[facility] (DEFAULT)[address] [place] [address] 13736Xpgjdhrez Test Urine 1on 02-19-2023U Preg NegativeCleveland Clinic Foundation HospitalComment on above:Performed By: #### [id number], 8959134, 691151137, 53320837 ####[facility] (DEFAULT)[address] [place] [address] 50707P Preg Internal ControlPassCleveland Clinic Foundation Hospital Comment on above:Performed By: #### 1451873297, 5164414, 982838639, 17491898 ####[facility] (DEFAULT)[address] [place] [address] 63430TC Micro1 on 95-11-9350SY Bacteria1+NormalWadsworth-Rittman Hospital HospitalComment on above:Order Comment: Urinalysis Microscopic order added on by [employer] Expert Rules system.Performed By: #### 3534536694, 4141537, 506808579, 44048626 ####[facility] (DEFAULT)[address] [place] [address] 16378UG Mucous1+NormalWadsworth-Rittman Hospital HospitalComment on above:Order Comment: Urinalysis Microscopic order added on by [employer] Expert Rules system.Performed By: #### [id number], 8513599, 255843163, 75269202 ####[facility] (DEFAULT)[address] [place] [address] 71602 UA RBC5-10NoAultman Hospital HospitalComment on above:Order Comment: Urinalysis Microscopic order added on by [employer] Expert Rules system.Performed By: #### 6890535701, 7660879, 864475533, 72319061 ####[facility] (DEFAULT)[address] [place] [address] 58840NF Squam EpiFewCleveland Clinic Foundation HospitalComment on above:Order Comment: Urinalysis Microscopic order added on by [employer] Expert Rules system.Performed By: #### 6172234781, 7505550, 553495147, 28712546 ####[facility] (DEFAULT)[address] [place] [address] 42888QA WBC3-5 NormalWadsworth-Rittman Hospital HospitalComment on above:Order Comment: Urinalysis Microscopic order added on by [employer] Rules system.Performed By: #### [id number], 6112793, 979362728, 86405742 ####[facility] (DEFAULT)[address] [place] [address] 41708LP w Culture if Ind Standardon 73-72-8777Nkwexiwzth UANormalWadsworth-Rittman Hospital HospitalComment on above:Performed By: #### 2734506699, 4083011, 785917382, 94628148 ####[facility] (DEFAULT)[address] [place] [address] 81166Iokhm (U)YellowNormCleveland Clinic FoundationComment on above:Performed By: #### 9610089230, 2056149, 650063676, 14134798 ####[facility] (DEFAULT)[address] [place] [address] 12025Ujchimg?Indicated Invalid Interpretation CodeWadsworth-Rittman Hospital HospitalComment on above:Result Comment: Result created by rule GL_MAGR_ADD_UA_CULTPerformed By: #### [id number], 0311523, 864065604, 71356744 ####[facility] (DEFAULT)[address] [place] [address] 65475Mydzrok (U) [Mass/Vol]NegativeNormCleveland Clinic [facility]cy Hospital HospitalComment on above:Performed By: #### 3875808291, 2602317, 681710776, 21093839 ####[facility] (DEFAULT)[address] [place] [address] 02925 Ketones Ql (U)>=80NormalWadsworth-Rittman Hospital HospitalComment on above:Performed By: #### 6005091182, 4490070, 285949479, 01507233 ####[facility] (DEFAULT)[address] [place] [address] 49100Cnndi?IndicatedInvalid Interpretation Code [facility] HospitalComment on above:Result Comment: Result created by rule GL_MAGR_ADD_UA_MICRO Result created by rule GL_MAGR_ADD_UA_MICROPerformed By: #### [id number], 6333652, 188551686, 02736002 ####[facility] (DEFAULT)[address] [place] [address] 39940PP BilirubinSMALLAbnormCleveland Clinic Foundation Comment on above:Performed By: #### 2450974884, 4611416, 791173566, 66619789 ####[facility] (DEFAULT)[address] [place] [address] 34027LS Blood LARGEAbnormalNEGATIVEWadsworth-Rittman Hospital HospitalComment on above:Performed By: #### [id number], 1694740, 563947809, 36837567 ####[facility] (DEFAULT)[address] [place] [address] 05192VM ClaritySL CLOUDYAbnormalCLEARMaadams county regional medical center HospitalComment on above:Performed By: #### [id number], 0458552, 454131183, 71275212 ####[facility] (DEFAULT)[address] [place] [address] 40181 UA Leuk EstNegativeNormalNEGATIVEMercy Health West HospitalComment on above:Performed By: #### [id number], 2985327, 896271674, 94718879 ####[facility] (DEFAULT)[address] [place] [address] 70471SP NitriteNegativeNormalNEGATIVE [facility] HospitalComment on above:Performed By: #### 0137901479, 9676138, 876851895, 26164976 ####[facility] (DEFAULT)[address] [place] [address] 73993CN pH6.6Drvujy8-5Dvtenglw HospitalComment on above:Performed By: #### [id number], 3384501, 102285697, 80014075 ####[facility] (DEFAULT)[address] [place] [address] 16843VE Xwjhjtj00YewaichlUTAQSTFT [facility] HospitalComment on above:Performed By: #### [id number], 5606127, 993651463, 04533540 ####[facility] (DEFAULT)[address] [place], [place] [address]QF Spec Grav>=1.557Ecryrf2.001-1.035[facility] HospitalComment on above:Performed By: #### [id number], 2773761, 972286987, 21979656 ####[facility] (DEFAULT)[address] [place], [place] [address] Urobilinogen0.2 mg/dLNormal0.2-1.0[facility] HospitalComment on above:Performed By: #### [id number], 0913512, 835962757, 88998589 ####[facility] (DEFAULT)[address] [place] [address] 19335Ucgeh SourceClean CatchNoAultman Hospital HospitalComment on above:Performed By: #### [id number], 3446607, 336751674, 33626380 ####[facility] (DEFAULT)[address] [place] [address] Urgent Care Note- Provideron 61-10-7178Kkjytm Care Note- ProviderPatient: RIYA GARCIA Age: 42 years Sex: FEMALE : 1980 Associated Diagnoses: Vomiting; Cough; Body aches Author: JAMEY SUN Subjective Patient is a 42-year-old female presenting to urgent care with complaint of bodyaches, mild cough, fever, vomiting, abdominal achiness. Patient indicates that she is feeling body aches and mild coughover the last couple days. 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 -Acute distress: No -Vitals: reviewed. SKIN: -Gross abnormalities: No EYES: -EOM intact, NAN: -Sclera conjunctiva: Unremarkable. ENT: -Posterior pharynx pink and moist uvula midline tolerating oral secretions without any problems. No tripoding or hot potato voice appreciated. NECK: -Supple ([id number]): non-tender. CARD: -Rate and rhythm: Regular RESP: [...] and Plan Assessment and Plan: Diagnosis: Vomiting ([id number]-YD R11.10), Cough (ZLX12-UV R05.9), Body aches (GBE53-MK R52). Orders Orders Patient Care: Rapid CoV-2 [...] than 1.03, negative nitrites, negative leukocyte esterase, 3- 5 white blood cells, 1+ bacteria and few [...] the emergency department secon (more content not included)...[id number] Care [facility] ? Urgent Care [address] [place] [address] PATIENT DISCHARGE INSTRUCTIONS Patient Information Name: RIYA GARCIA Age: 42 Years Date of : 1980 Reason For Visit: Fever; UC - Cough; Body aches; VOMITING, COUGH, BODY ACHES Arrival Time: 02/19/2023 16:41:39 Primary Care Physician: JIMMIE TOMAS Attending Physician: JAMEY SUN Comment: Visit Diagnosis: Diagnoses This Visit Body aches (R52) Body aches ([id number]) Cough (R05.9) Fever ([id number]) UC - Cough ([id number]) Vomiting (R11.10) If you received any narcotics, [...] legal documents With: Address: When: JIMMIE TOMAS [address] [place] [address] Business (1) Within 2 to 4 days Comments: Continue with oral Zofran for any nausea. Continue Tylenol for aches and pains. If you are having increasing abdominal pains, fevers intractable vomiting you need further evaluation the emergency department. You also be getting Zofran for nausea as discussed. Medication Information: The exam and treatment you received today in the [facility] were for an urgent problem and are not intended as complete care. It is important for you to follow up with a doctor, nurse practitioner, or physician?s assistant director of nursing for ongoing care. If your symptoms become [...] so we can reach you if necessary. [facility] has provided you with a complete list of medications post discharge. Please inform your cephalometric technician/provider of your visit and for further instruction on these medications. Any specific questions regarding your chronic medications and dosages should be discussed with your primary care physician(s) and/or pharmacist. New Medications [id number], [address], [place] [id number], [phone] ondansetron (ondansetron 4 mg oral tablet, disintegrating) 1 tab(s) Oral (given by mouth) 2 times aday (scheduled) as needed Nausea. Refills: 0. Additional medications on your home medication list not specifically addressed. Please contact the ordering physician if you have questions about these medications. ethinyl estradiol-levonorgestrel (Aviane) 1 tab(s) Oral (given by mouth) [...] you are about to vomit. As nausea getsworse, it can lead to vomiting. Vomiting is when stomach contents forcefully come out of your mouthas a result of nausea. Vomiting can make [...] is important to t (more content not included)...[facility] HospitalXR Chest 2 Viewson [id number] Chest 2 Views_Findings: Osseous structures intact. Cardiopericardial silhouette normal. Pulmonary vasculature normal. Lungsclear. Impression: No acute cardiopulmonary disease. Final Signed (Electronic Signature): Manfred Fong MD 02/19/23 5:47 pm Technologist: [facility] HospitalCoding Summaryon [id number] Summary HTMLBase 64 IwujkmfqUVk5oVm+PGhlYWQ+GC4MPVJbV56dsNCbqK1pU0CEKVxPGzcyQTVCGSxBJxDadsCnED1tbVYo ZXJu [file] IGN (more content not included)...[facility] Throaton 07-12-2022 ThroatOrdered by Discern. Normal throat marquez isolated No pathogens isolatedAshtabula General HospitalComment on above:Performed By: #### [id number] ####[facility] (DEFAULT)[address] [place] [id number] Clinical Summaryon [id number] Clinical [facility] ? Urgent Care [address] [place], [place] [id number] Clinical Summary PERSON INFORMATION Name: RIYA GARCIA Age: 41 Years Sex: FEMALE : 1980 MRN: Acct#: Visit Reason: UC - Sinus Pain or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 91-05-7095Qcypah flowsKalie ESTRADA Work Phone: [facility] FB ORTHOPAEDICSStart: 08-03-2024 End: 42-70-7652Ucgfbj flowsKalie ESTRADA Work Phone: [facility] FB ORTHOPAEDICSStart: 08-03-2024 End: 94-48-3266ckqkfayofrBUURNNY J MEYERNot AvailableStart: 08-03-2024 End: 80-85-6625Ekapsr follow up visit related to original Bibi ESTRADA Work Phone: noms FB ORTHOPAEDICSComment on above:S/P left knee arthroscopy (Primary Dx); Acute pain of left kneeStart: 07-09-2024 End: 20-03-2089Lyskwg Ciaran ESTRADA Work Phone: noms FB ORTHOPAEDICSStart: 07-09-2024 End: 42-31-5494Dfnnzm flowsKalie ESTRADA Work Phone: NOFJ FB ORTHOPAEDICSStart: 07-09-2024 End: 67-81-8845Vqlqmh follow up visit related to original Bibi ESTRADA Work Phone: NOOK FB ORTHOPAEDICSComment on above:S/P left knee arthroscopy (Primary Dx)Start: 07-09-2024 End: 79-70-4976pspjrxxqdbTTFBAHL J MEYERNot AvailableStart: 06-18-2024 End: 59-16-7161Nugfoj Ciaran ESTRADA Work Phone: NOKW FB ORTHOPAEDICSStart: 06-18-2024 End: 41-26-6994Yqdyzs Ciaran ESTRADA Work Phone: noms FB ORTHOPAEDICSStart: 06-18-2024 End: 35-74-7053hxppiqgactPEXNTJT J MEYERNot AvailableStart: 06-18-2024 End: 44-47-7438Ernvuz follow up visit related to original Bibi ESTRADA Work Phone: noms FB ORTHOPAEDICSComment on above:S/P left knee arthroscopy (Primary Dx)Start: 06-04-2024 End: 94-83-9201Vsibee Ciaran ESTRADA Work Phone: NOGI FB ORTHOPAEDICSStart: 06-04-2024 End: 93-00-8378Havftg Ciaran ESTRADA Work Phone: NOTQ FB ORTHOPAEDICSStart: 06-04-2024 End: 45-98-1000wzjmrcmtekZJDHQKT J MEYERNot AvailableStart: 06-04-2024 End: 30-05-7430Oistbn follow up visit related to original yandyMaylin Head NATALIE Work Phone: noms FB ORTHOPAEDICSComment on above:S/P left knee arthroscopy (Primary Dx); Knee effusion, leftStart: 05-20-2024 End: 57-43-2202IjctijYedza T Olsen NP Work Phone: noms FB ORTHOPAEDICSComment on above:Acute medial meniscus tear of left knee, initial encounter (Primary Dx)Start: 05-03-2024 End: 59-27-8181ljohrqjaqqZCDN J SPRIGGSNot AvailableStart: 05-03-2024 End: 34-12-8155azomcaghgyTYLVE T OLSENNot AvailableStart: 04-14-2024 End: 47-11-5590Dfwvsgfov encounterJr. Freddie Zheng DO Work Phone: noms FB ORTHOPAEDICSComment on above:surgeryStart: 03-31-2024 End: 94-12-1016Qojfls flowsheetJr. Freddie Zheng DO Work Phone: NORF SWS ORTHOStart: 03-31-2024 End: 90-10-3273Owcyuh flowsheetJr. Freddie Zheng DO Work Phone: NOWT SWS ORTHOStart: 03-31-2024 End: 05-66-8189wuwxvvpbjaVO., FREDDIE ZHENGNot AvailableStart: 03-31-2024 End: 56-06-4096Yvzhyi outpatient visit 25 minutesJr. Freddie Zheng DO Work Phone: NOAU SWS ORTHOComment on above:Left knee pain, unspecified chronicity (Primary Dx); Acute medial meniscus tear of left knee, initial encounterStart: 03-19-2024 End: 07-45-9157klzojjncmbBQILN B APLINGNot AvailableStart: 03-16-2024 End: 27-09-0786Jnaoswisq encounterMaria B Apling PROTECTION OFFICER Other Phone: noms PCF ORTHOStart: 03-01-2024 End: 64-93-4965Dvqhic flowsheetMaria B Apling PROTECTION OFFICER Work Phone: noms CI ORTHOPAEDICSStart: 03-01-2024 End: 43-19-6558Oebblc flowsheetMaria B Apling PROTECTION OFFICER Work Phone: noms CI ORTHOPAEDICSStart: 03-01-2024 End: 08-43-7856Rqjmsw outpatient visit 15 minutesMaria B Apling PROTECTION OFFICER Work Phone: noms CI ORTHOPAEDICSComment on above:Internal derangement of left knee (Primary Dx); Left knee pain, unspecified chronicityStart: 03-01-2024 End: 52-37-3085qnexhalfvdGPCEC B APLINGNot AvailableStart: 01-29-2024 End: 40-52-6016Sfpjfs flowsheetPortia ESTRADA Work Phone: noms BCP OBStart: 01-29-2024 End: 15-39-6693Unpmzv flowsheetPortia ESTRADA Work Phone: noms BCP OBStart: 01-29-2024 End: 50-73-1144Ogrggbcza Result EncounterPortia ESTRADA Work Phone: noms External Department UnsolicitedStart: 01-29-2024 End: 63-55-7453zvynwgwcxsHVD RAMEYNot AvailableStart: 01-29-2024 End: 37-88-2156Tqmgqdn encounter procedurePortia ESTRADA Work Phone: [facility] Work Phone: Start: 01-29-2024 End: 61-53-1065Hkvitcyx preventive med est patient 40-64yrsAmy Aidan ESTRADA Work Phone: n[facility] BCP OBComment on above:Well woman exam with routine gynecological exam; Breast cancer screening by mammogram; Depression, unspecified depression type (CMS/HCC)Start: 02-19-2023 End: 87-52-5068Grqyyvbsp department patient visitScojuana Bradshaw Facility:[facility] HospitalStart: 02-19-2023 End: 65-01-5774bnxbheelatAXKMGF H BOWLUS PAFacility:[facility] HospitalStart: 07-10-2022 End: 23-96-9110ihmorzpymzTHWFOF H BOWLUS PAFacility:[facility] HospitalStart: 06-04-2022 End: 20-59-5317dmoclatldhLngpoox OsbaldoMark San PAFacility:[facility] HospitalStart: 04-23-2022 End: 07-72-8610eoogaxloppBHZOQ APLINGFacility:[facility] HospitalStart: 01-25-2022 End: 93-82-4554wpvyqotvoqCG YEYO FAZIOFacility:N5Hehtp: 01-10-2022 End: 03-67-8016jxljhbviqoKD YEYO FAZIOFacility:A9Svytz: 04-29-2018 End: 89-16-9547Evfuhetsk department patient visitDown East Community [facility] Procedures DateProcedureProcedure DetailPerforming ClinicianStart: 16-47-9614HUXBMFZNE VAGINITIS (HTRX)oPrtia ESTRADA Work Phone: Start: 46-00-7071Jabfrflloo examination knee 1/2 views Maylin ESTRADA Work Phone: Start: 46-43-7605Vqtyyzkypwabvx aspir&/inj major jt/bursa w/o usMatthegeorges ESTRADA Work Phone: Start: 61-53-4981Exhehfzuik examination knee 1/2 views Jayla Bai PROTECTION OFFICER Work Phone: Start: 13-10-2044DGC,APTIMA HPV,AGE GDLNPortia ESTRADA Work Phone: Start: 41-29-2488Amxunfgslyu observation [Identifier] in Cervix by Cyto stainJayla Bai PROTECTION OFFICER Work Phone: Start: 48-55-3658LlrrybzqdfmKth Ramey PA Work Phone: Start: 43-85-9578Wwinudviaxf observation [Identifier] in Cervix by Cyto Christi ESTRADA Work Phone: Plan of Treatment DateCare ActivityDetailAuthorStart: 83-90-5501Wptczckju for malignant neoplasm of cervixNOMS HealthcareStart: 62-63-3120Exodwxuns for malignant neoplasm of cervixNOMS HealthcareStart: 02-02-2025 End: 21-40-3096Mmcvall encounter procedureNOMS BCP OBStart: 49-02-1288LTBQQ-19 Vaccine ( season)COVID-19 Vaccine ()[facility] Start: 25-06-4717Xdlodxpmw vaccinationNOMS HealthcareStart: 07-09-2024 End: 76-38-5024Qtmeaga encounter agmdpnwdg93/16/2025 10:00 AM EDT Office Visit [facility] [address] [place] [address] Maylin Head PA [address] [facility] [address] [place] [address] S/P left knee arthroscopy (Primary Dx)[facility] Comment on above:S/P left knee arthroscopy (Primary Dx)Start: 07-02-2024 End: 67-53-2944Zdzxpud encounter wselrdpcr85/09/2025 9:30 AM EDT Office Visit [facility] [address] [place] [address] Maylin Head PA [address] [facility] [address] [place] [address] [facility] ORTHOPAEDICSStart: 06-18-2024 End: 70-27-3152Vzkdobf encounter mlhojujyh10/25/2025 10:15 AM EDT Office Visit [facility] [address] [place] [address] Maylin Head PA [address] [facility] [address] [place] [address] [facility]Start: 06-04-2024 End: 96-90-4004Fbgzghj encounter wcnaiwqjf95/11/2025 11:00 AM EDT Office Visit [facility] [address] [place] [phone] Maylin Head PA [address] [facility] [address] [place] [address] [facility]ICSStart: 05-03-2024 End: 73-52-0026Fefcgsw encounter fdduajuvu91/10/2025 8:30 AM EDT Office Visit [facility] [address] [place] [phone] Chapincito Herrera, PROTECTION OFFICER [address] [place] [address] [facility]OPA[facility]ICSStart: 03-16-2024 End: 00-36-1743Flnxgru encounter /21/2025 1:45 PM EST Office Visit [facility] [address] [place] [address] Jayla Bai NP [address] [facility] [address] [place] [address] [facility] ORTHOStart: 01-29-2024 End: 71-31-1984HG Breast - bilateral ScreeningBilateral screening mammogram Imaging Routine Breast cancer screening by mammogram Expected: 01/29/2024 (Approximate), Expires: 03/31/2025[facility] Work Phone: comment on above:Expected: 01/29/2024 (Approximate), Expires: 03/31/2025Start: 57-34-5105Oizkdotqz vaccinationInfluenza Vaccine (#1) [employer] [facility] HealthcareStart: 54-66-2292Hganaptbg for malignant neoplasm of breast MammogramNOBarnes-Jewish HospitalTHIN PREP TIS PAP AND HR HPV DNATHIN PREP TIS PAP AND HR HPV DNA Pathology and Cytology Routine Well woman exam with routine gynecol ogical exam Ordered: 01/29/2024[facility] HealthcareComment on above:Ordered: 01/29/2024 Payers DatePayer CategoryPayerPolicy [id number] Cross Blue ShieldBS [id number] 2.0.1.023410.3.57[id number] 2.840.1.202048.3.579.[id number] 2.0.1.245691.3.579.2.[id number] 2.840.1.142865.3.579.2.[id number] 2.0.1.951417.3.579.[id number] 2.16840.1.789967.3.57[id number] 2.160.1.810448.3.579.2.58102-13-2243Hnvdifv51795827 2.16840.1.976935.3.579.[id number] 2.16840.1.816238.3.579.2.535388-21-5389Eaxhgou39590635 2.16.840.1.333033.3.579.2.5[id number] 2.840.1.685244.3.579.2.004688-05-9044Uarykjl9730800 2..840.1.944375.3.579.2.599987-49-8034Sejgoif0420387 2.0.1.782100.3.579.2.325702-84-2330Ltssrsk4942540 2.0.1.217532.3.579.2.137468-92-1464Tbrqimr2622833 2.840.1.297577.3.579.2.604335-58-7772Plqgcig0375239 2.0.1.243560.3.579.2.602717-95-1310Kkukqlz8577158 2.0.1.159331.3.579.2.251789-17-4749Eaoznuh3809423 2.0.1.263917.3.579.2.521547-63-0852Uyylnmy7562984 2.0.1.401915.3.579.2.534474-38-2948Fftxtid4056538 2..1.604915.3.579.2.455474-56-5590Ikstans4301719 2.0.1.921379.3.579.2.1259 [id number] [id number] Social History DateTypeDetailFacilityStart: 22-44-9023Stmvwbg smoking status NHISNever smoked tobaccoNOMS HealthcareStart: 13-50-8872Cpicqcp use and exposureSmokeless tobacco non-userNOMS HealthcareStart: 01-29-2024 End: 41-56-9056Wwjdhelub beverage intakeLifetime non-drinker (finding)[facility] HealthcareStart: 01-29-2024 End: 21-21-7837Gjpdwlu of Social functionKANE COUNTY HUMAN RESOURCE SSD HealthcareStart: 01-29-2024 End: 90-36-2814Jiewiyp use panelSaint John's Breech Regional Medical CenterStart: 58-46-5879Osh assigned at birthNot on fileSaint John's Breech Regional Medical CenterStart: 90-81-5758RzsZrnixkHCXD Healthcare Clinical Notes 06-04-2022 to 12-30-2024 Note Date & HricVqdlFjijzmhi87-44-6591 History of Present illness Narrative* NATALIE Diallo - 12/30/2024 2:20 PM EST Reason for Appointment: Patient ID: Riya Garcia is a 44 y.o. female who presents for Vaginitis/Bacterial Vaginosis Patient presents today for Acute Visit. MEDICATIONS Current Outpatient Medications Medication Instructions levonorgestrel-ethinyl estradiol (Aviane, Alesse, Lessina) 0.1-20 MG-MCG tablet 1 tablet, Oral, Daily, Skip sugar pills for 3 months and 4th month take pack in its entirety to cycle a total of 3 times yearly. sertraline (ZOLOFT) 50 mg, Oral, Daily ALLERGIES Allergies Allergen Reactions Sulfa Antibiotics Hives PROBLEMS Active Ambulatory Problems Diagnosis Date Noted Chronic right hip pain 11/13/2022 Trochanteric bursitis, right hip 11/13/2022 Internal derangement of left knee 05/03/2024 Resolved Ambulatory Problems Diagnosis Date Noted No Resolved Ambulatory Problems Past Medical History: Diagnosis Date Abnormal uterine bleeding Anxiety At risk for falls Bicornuate uterus BMI 20.0-20.9, adult Contraception management Depression Elective History of abnormal uterine bleeding Oral contraceptive use Premature atrial beat Schamberg disease Underweight Well woman exam HISTORY PAST MEDICAL HISTORY SOCIAL HISTORY Past Medical History: Diagnosis Date Abnormal uterine bleeding Anxiety At risk for falls Bicornuate uterus BMI 20.0-20.9, adult Contraception management Depression Elective History of abnormal uterine bleeding Oral [...] Date SECTION, CLASSIC 2011 ENDOMETRIAL BIOPSY 2018 KNEE SURGERY Left 05/21/2024 LT KNEE SCOPE- DR ZHENG REVIEW OF SYSTEMS Review of Systems: Review of Systems Constitutional: Negative. HENT: Negative. Eyes: Negative. Respiratory: Negative. Cardiovascular: Negative. Gastrointestinal: Negative. Genitourinary: Negative. Musculoskeletal: Negative. Skin: Negative. Neurological: Negative. All other systems reviewed and are negative. Hematological: Negative. Endocrine: Negative. Allergic/Immunologic: Negative. OBJECTIVE Objective: Physical Exam Constitutional: Appearance: Normal appearance. She is normal weight. HENT: Head: Normocephalic. Cardiovascular: Rate and Rhythm: Normal rate. Pulses: Normal pulses. Pulmonary: Effort: Pulmonary effort is normal. Breath sounds: Normal breath sounds. Abdominal: Palpations: Abdomen is soft. Musculoskeletal: General: Normal range of motion. Neurological: General: No focal deficit present. Mental Status: She is alert and oriented to person, place, and time. Psychiatric: Mood and Affect: Mood normal. Behavior: Behavior normal. Thought Content: Thought content normal. Judgment: Judgment normal. Vitals and nursing note reviewed. Vitals: Estimated body mass index is 21.86 kg/m as calculated from the following: Height as of 05/03/24: 5' 8 . Weight as of this encounter: 143 lb 12 oz. BP: 120/82 No LMP recorded. Assessment/Plan ICD-10-CM 1. Vaginal discharge N89.8 Patient presents for possible BV infection, pt states mild discharge with odor, cultures obtained and we will send in flagyl for patient. Pt scheduled for annual next month Documented by NATALIE Diallo on behalf of: NATALIE Diallo documented in this encounterSaint John's Breech Regional Medical CenterRggkmqbvfm27-88-4935 History of Present illness Narrative* NATALIE Crowe - 08/03/2024 9:00 AM EDT Images from the original note were not included. Orthopedic Office note: NAME: Riya Garcia : 1980 EST PT LT KNEE SCOPE (10 WKS 4 DAYS) 05/21/24 @ [facility]- S/P DEPO INJECTION 07/09 (3 WKS 4 DAYS) DEPO INJECTION 07/09/24 MDP 06/18/24 NOTES 50% IMPROVEMENT SINCE INJECTION. LESS TIGHTNESS NOTED. DENIES SWELLING- INTERMITTENT PAIN MEDIAL OVER TIBIAL TUBERCLE. DIFFICULTY FULLY EXTENDING- SOME INSTABILITY- PAIN WITH DEEP SQUAT- TLY/IBU- BALA WRAP AT WORK Knee Musculoskeletal Exam Gait Gait is normal. Inspection Leg length disparity: no discrepancy Left Erythema: none Effusion: mild Edema: none Ecchymosis: none Deformity: none Alignment: normal Previous incision: arthroscopic portals Incision: well-healed Palpation Left Left knee palpation is unremarkable. Increased warmth: none Masses: none Tenderness: present Tenderness comment: small bump anterior tibial tubercle no pain to medial or lateral joint line no pain to patella. Range of Motion Left Left knee range of motion is normal and full. Active extension: 0 Passive extension: 0 Active flexion: 125 Passive flexion: 130 Strength Left Left knee strength is normal. Extension: 5/5. Extension is not affected by pain. Flexion: 5/5. Flexion is not affected by pain. Instability Left Instability signs: none - stable Varus stress grade: normal Valgus stress grade: normal Anterior drawer: normal Medial Suman test: negative Lateral Suman test: negative Neurovascular Left Left knee neurovascular exam is normal. Pulses - PT: normal Posterior tibial: 2+ Capillary refill: warm and well-perfused Special Signs Left Straight leg raise: normal J sign: none Patellar compression: none Patellar apprehension: none General Constitutional: appears stated age Labored breathing: no Psychiatric: normal mood and affect Neurological: alert Skin: intact Lymphadenopathy: none No orders of the defined types were placed in this encounter. Procedures Results - Imaging: - X-ray of the knee shows no evidence of avulsion fracture ICD-10-CM 1. S/P left knee arthroscopy Z98.890 S/p TPHMM Assessment & Plan Left knee pain. She reports a 50% improvement in her left knee pain following a cortisone injection. She does not experience any discomfort during weight-bearing activities or movement. However, she notes mild stiffness and an inability to fully extend her knee, even though full extension was observed during the be dside examination. Her primary concern is a small, tender bump on the tibial tubercle, which is sensitive to touch but not to weight-bearing. She recalls having [place]-Schlatter's disease in her childhood. Diagnostic plan: An x-ray was performed today as a precautionary measure, revealing no signs of an avulsion fracture. Treatment plan: Ice and other conservative measures were recommended due to the attachment. Follow-up: The patient will follow up on an as-needed basis, Questions answered in laymen terms at the bedside. The diagnosis, home exercise plan and any ongoing restrictions/ recommendations reviewed. If unable to be reached in office, I recommend evaluation at nearest Emergency Room if any symptoms worsened or new symptoms develop for requiring urgent evaluation. Visit was preformed using [employer] speech recognition. documented in this encounterSaint John's Breech Regional Medical CenterLkbpwhgdil63-86-2950 History of Present illness Narrative* NATALIE Crowe - 07/09/2024 10:00 AM EDTAssociated Order(s): L Inj/Asp: L knee Post-Procedure Diagnose(s): S/P left knee arthroscopy Images from the original note were not included. Orthopedic Office note: NAME: Riya Garcia : 1980 EST PT LT KNEE SCOPE (7WKS) 05/21/24 @ [facility]- S/P MDP 06/18/24; GOOD TEMP RELIEF- PT STATES SHE STARTED TO HAVE TO WEAR BALA WRAP AGAIN SINCE BACK AT WORK MDP 06/18/24 NOTES SWELLING MEDIAL KNEE- PAIN MEDIAL/ANTERIOR KNEE-+TIGHTNESS- DIFFICULTY FULLY EXTENDING- SOME INSTABILITY - NO PAIN MEDS Knee Musculoskeletal Exam Gait Gait is normal. Inspection Leg length disparity: no discrepancy Left Erythema: none Effusion: mild Edema: none Ecchymosis: none Deformity: none Alignment: normal Previous incision: arthroscopic portals Incision: well-healed Palpation Left Left knee palpation is unremarkable. Increased warmth: none Masses: none Tenderness: present Patella: moderate Range of Motion Left Left knee range of motion is normal and full. Strength Left Left knee strength is normal. Extension: 5/5. Instability Left Instability signs: none - stable Varus stress grade: normal Valgus stress grade: normal Anterior drawer: normal Medial Suman test: negative Lateral Suman test: negative Neurovascular Left Left knee neurovascular exam is normal. Pulses - PT: normal Posterior tibial: 2+ Capillary refill: warm and well-perfused Special Signs Left Straight leg raise: normal Patellar apprehension: moderate General Constitutional: appears stated age Labored breathing: no Psychiatric: normal mood and affect Neurological: alert Skin: intact Lymphadenopathy: none No orders of the defined types were placed in this encounter. L Inj/Asp: L knee on 07/09/2024 10:50 AM Indications: pain Details: 22 G needle, anterolateral approach Medications: 40 mg methylPREDNISolone acetate 40 MG/ML; 1 mL bupivacaine PF 0.5 % Outcome: tolerated well, no immediate complications UTILIZING ASEPTIC TECHNIQUE PT GIVEN INJECTION IN LEFT KNEE, NEUROVASC INTACT S/P INJ, TOLERATED WELL Procedure, treatment alternatives, risks and benefits explained, specific risks discussed. Consent was given by the patient. Results ICD-10-CM 1. S/P left knee arthroscopy Z98.890 S/p TPHMM Assessment & Plan Follow up in in 4 wks, recheck progress. Pt notes pain getting better. Just residual swelling intermittent and tightness.. agreeable to IA injection. Risk and benefits discussed will incorporate bicycle.. pt thankful. Notes knee is better than before surgery. Questions answered in laymen terms at the bedside. The diagnosis, home exercise plan and any ongoing restrictions/ recommendations reviewed. If unable to be reached in office, I recommend evaluation at nearest Emergency Room if any symptoms worsened or new symptoms develop for requiring urgent evaluation. Visit was preformed using [employer] speech recognition. documented in this encounterSaint John's [facility] [id number] History of Present illness Narrative* NATALIE Crowe - 06/18/2024 10:15 AM EDT Images from the original note were not included. Orthopedic Office note: NAME: Riya Garcia : 1980 EST PT LT KNEE SCOPE (4WKS) 05/21/24 @ [facility]- NOTES IMPROVEMENT- C/O TIGHTNESS ABOVE KNEE- PAIN MEDIAL KNEE- SOME DIFFICULTY FULLY EXTENDING KNEE- +SWELLING- DOES HEP- SYMPTOMS GENERALLY WITH WB ACTIVITY- NO PAIN MEDS Left Knee Exam Left knee exam is normal. Tenderness Left knee tenderness location: Compartments soft. Range of Motion The patient has normal left knee ROM. Extension: 5 (passive to 0) Left knee flexion: tightness on terminal flexion. Tests Varus: negative Valgus: negative Other Erythema: absent Scars: present (Portal scars well healed) Sensation: normal Pulse: present Swelling: mild Effusion: effusion (mild) present Comments: Operative lower extremity was noted to be neurovascularly intact. Patient was able to motor feet, toes and ankles in all anatomic planes bilaterally with 5 out of 5 strength. Operative knee's patellar tracking was optimal and quad 5/5 /ham strength was 4+ out of 5 to operative lower extremity. There was no varus valgus, anterior-posterior, or rotatory instability noted to the operative knee. Swelling was well controlled, patella was not ballotable and compartments were soft to the operative lower extremity. Dorsalis pedis and posterior tibial pulses were present and equal bilaterally. There was no evidence of infection or ascending lymphangitis to operative lower extremity. Sensation to light touch was intact to all dermatomes to bilateral lower extremities. Negative Homans and negative Mil were noted bilaterally to lower extremities. Incision was healing without evidence ofinfection No orders of the defined types were placed in this encounter. Procedures Results ICD-10-CM 1. S/P left knee arthroscopy Z98.890 methylPREDNISolone (Medrol Dospak) 4 MG tablets S/p TPHMM Assessment & Plan Left medial knee pain. She notes difficulty with increasing activity and swelling. There are no signs or symptoms of infection. She is tender along the pes anserine bursa and medial retinaculum. Gentle meniscal stressing today without evidence of pain. She is able to achieve full leg extension with gentle stretch and passive maneuvers. Treatment plan: Portal scar massage and a Medrol Dosepak for her effusion have been recommended. The importance of topicals such as Voltaren twice daily and ice to the medial knee where she has her symptoms was discussed. Gradually ramping up her activities was also discussed. 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 She has good muscle toneand strength, and physical therapy is not warranted at this time. Follow-up: She will be kept off work for another 2 weeks pending reevaluation. Questions answered in laymen terms at the bedside. The diagnosis, home exercise plan and any ongoing restrictions/ recommendations reviewed. If unable to be reached in office, I recommend evaluation at nearest Emergency Room if any symptoms worsened or new symptoms develop for requiring urgent evaluation. Visit was preformed using [employer] speech recognition. documented in this encounterSaint John's Bree[facility] Medical [id number] History of Present illness Narrative* NATALIE Crowe - 06/04/2024 11:00 AM EDT Images from the original note were not included. Orthopedic Office note: NAME: Riya Garcia : 1980 EST PT 1ST P/O LT KNEE SCOPE (2WKS) 05/21/24 @ [facility]- PT NOTES PAIN GLOBALLY ON KNEE- +SWELLING- PT STATES HER CALF WAS SUPER SORE FOR A FEW DAYS- DENIES CRAMPING- PAIN HAS IMPROVED- +IBUPROFEN/TYLENOL- SUTURES REMOVED WITHOUT DIFFICULTY Left Knee Exam Left knee exam is normal. Tenderness Left knee tenderness location: Compartments soft. Range of Motion The patient has normal left knee ROM. Left knee flexion: tightness on terminal flexion. Other Erythema: absent Scars: present (Portals well healing, sutures removed, no erythema, drainge or discharge, no dehisence) Sensation: normal Pulse: present Swelling: moderate (effusion at knee) Effusion: effusion (consistent with surgery) present Comments: Operative lower extremity was noted to be neurovascularly intact. Patient was able to motor feet, toes and ankles in all anatomic planes bilaterally with 5 out of 5 strength. Operative knee's patellar tracking was optimal and quad/ham strength was 5 out of 5 to operative lower extremity. There was no varus valgus, anterior-posterior, or rotatory instability noted to the operative knee. Swelling was well controlled, patella was not ballotable and compartments were soft to the operativelower extremity. Dorsalis pedis and posterior tibial pulses were present and equal bilaterally. There was no evidence of infection or ascending lymphangitis to operative lower extremity. Sensation tolight touch was intact to all dermatomes to bilateral lower extremities. Negative Homans and negative Mil were noted bilaterally to lower extremities. Incision was healing without evidence of infection No orders of the defined types were placed in this encounter. Procedures ICD-10-CM 1. S/P left knee arthroscopy Z98.890 S/p TPHMM Assessment & Plan Status post left knee arthroscopy. She had a partial medial meniscectomy. Continued knee effusion is mostly present with increased activities. Ice, elevation, and a compression wrap have been recommended. Wearing an Bala wrap was discussed; it should be worn if she is up for more than 10 minutes and may be removed during sleep. Advised against deep squatting or quick pivoting or turning. 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 If symptoms persist in 2 weeks, a Medrol Dosepak will be considered. Follow-up: reevaluation in 2 weeks. PROCEDURE Procedure Performed Left knee arthroscopy with partial medial meniscectomy. Questions answered in laymen terms at the bedside. The diagnosis, home exercise plan and any ongoing restrictions/ recommendations reviewed. If unable to be reached in office, I recommend evaluation at nearest Emergency Room if any symptoms worsened or new symptoms develop for requiring urgent evaluation. Visit was preformed using [employer] speech recognition. documented in this [facility]04-11-2025 Instructions* Patient Instructions* NATALIE Crowe - 06/04/2024 11:00 AM EDT Discussed surgery for knee arthroscopy: Recommend no deep squatting, no pivoting or rotation... Recommend no running, jumping or high impact.. Avoid kneeling Cont with ice and elevation, 20 minutes on and 20 minutes off for 1 hour 2-3 times day. Be mindful of swelling pending increasing activities... consider sleeve or bala wrap if up for more than 10 mins documented in this [facility]03-27-2025 Telephone encounter Note* Telephone Encounter - Chapincito Herrera NP - 05/20/2024 3:37 PM EDT Post op pain rx. PDMP reviewed [facility] [id number] Miscellaneous Notes* Telephone Encounter - Chapincito Herrera NP - 05/20/2024 3:37 PM EDT Post op pain rx. PDMP reviewed documented in this [facility]02-19-2025 Telephone encounter Note* Telephone Encounter - Violette Orantes - 04/14/2024 1:02 PM EST Patient called and left a vm, she said that she is scheduled for Pre Op appt for 05/03/2024 and that she has some questions before this appointment. Her number is [phone]. [facility] [id number] Miscellaneous Notes* Telephone Encounter - Violette Lamberto - 04/14/2024 1:02 PM EST Patient called and left a vm, she said that she is scheduled for Pre Op appt for 05/03/2024 and that she has some questions before this appointment. Her number is [phone]. documented in this [facility]02-05-2025 History of Present illness Narrative* Jr. Freddie Zheng, - 03/31/2024 8:45 AM EST Images from the original note were not included. HISTORY OF PRESENT ILLNESS: EST PT Riya Garcia is an 43 y.o. @ female. (EST PT W/ HORACE) - (L) KNEE PAIN SINCE 12/2023 (~3 MONTHS) ; S/P MDP 03/01/24, S/P MRI 03/19/24 @[facility] ; [facility] - (NOV 2023) (~4 MONTHS) WENT TO [employer] DOOR STOPPER AND TURN, STATES EVERYTHING BUT HER KNEE TWISTED. XRAYS 03/01/24 IN [facility] MRI 03/19/24 IN [facility] NO PREDNISONE S/P MDP 03/01/24 NO PT NO PAIN MGMT S/P MDP / HEP - DID NOT IMPROVE SYMPTOMS. ANTERIOR KNEE PAIN, INTERMITTENTLY LATERAL. INTERMITTENT RADIATION INTO MID-CALF. INTENSE PAIN WITH EXTENDING KNEE / PIVOTING. DENIES TIGHTNESS. DENIES N/T. NOTES HORACE NOTED SWELLING ON LAST VISIT. POPPING. GIVES OUT WITH PAIN WITH PIVOTING / FORCING INTO EXTENSION. DENIES WAKING @HS. IBU / MOTRIN PRN - SOME RELIEF. ICY HOT, BIOFREEZE, TIGER BALM - MINIMAL RELIEF. [facility] - (NOV 2023) WENT TO [employer] DOOR STOPPER AND TURN, STATES EVERYTHING BUT HER KNEE TWISTED. ALLERGIES: Allergies Allergen Reactions Sulfa Antibiotics Hives HOME MEDICATIONS: Current Outpatient Medications Medication Instructions levonorgestrel-ethinyl estradiol (Aviane, Alesse, Lessina) 0.1-20 MG-MCG tablet 1 tablet, Oral, Daily, Skip sugar pills for 3 months and 4th month take pack in its entirety to cycle a total of 3 times yearly. methylPREDNISolone (Medrol Dospak) 4 MG tablets Follow schedule on package instructions sertraline (ZOLOFT) 50 mg, Oral, Daily PHYSICAL EXAM: Knee Musculoskeletal Exam Gait Gait is normal. Antalgic: left Inspection Leg length disparity: no discrepancy Left Erythema: none Effusion: mild Edema: none Ecchymosis: none Deformity: none Alignment: normal Palpation Left Increased warmth: none Masses: none Tenderness: present Medial joint line: moderate Range of Motion Left Left knee range of motion is normal and full. Active extension: 0 Passive extension: 0 Active flexion: 125 Passive flexion: 125 Range of motion additional comments: + PAIN ON TERMINAL FLEXION AND EXTENSION Strength Left Extension: 5/5. Extension is affected by pain. Flexion: 5/5. Flexion is affected by pain. Instability Left Instability signs: none - stable Varus stress grade: normal Valgus stress grade: normal Anterior drawer: normal Medial Suman test: positive Neurovascular Left Left knee neurovascular exam is normal. Pulses - PT: normal Posterior tibial: 2+ Capillary refill: warm and well-perfused Special Signs Left Left knee special signs are normal. Patellar apprehension: none General Constitutional: appears stated age Labored breathing: no Psychiatric: normal mood and affect Neurological: alert Skin: intact Lymphadenopathy: none Vitals: There is no height or weight on file to calculate BMI. Tobacco Use: Low Risk (03/31/2024) Patient History Smoking Tobacco Use: Never Smokeless Tobacco Use: Never Passive Exposure: Not on file Alcohol Use: Not on file IMAGING: Procedures No orders of the defined types were placed in this encounter. ASSESSMENT: ICD-10-CM 1. Left knee pain, unspecified chronicity M25.562 2. Acute medial meniscus tear of left knee, initial encounter S83.242A PLAN: Medial meniscus tear noted on MRI and we have discussed this with her at length. We have recommended surgical intervention in form of a diagnostic and operative arthroscopy Left knee. Patient is in agreement with this. She understands the risks and benefits of the treatment. We will see her back onthe day surgery. We have discussed both surgical and nonsurgical treatment options with the patient at length and the risks and benefits associated with both. The patient is requesting surgical intervention because they have not responded to outpatient treatment options including but not limited to rest ice, and home exercise program. Pain and decreased range of motion are affecting the patient's ability to sleepand activities of daily living and we have recommended surgical intervention. We have discussed both surgical and nonsurgical treatment options with the patient at length and the risks and benefits associated with both. The patient is requesting surgical intervention because they have not responded to outpatient treatment options including but not limited to rest ice, and home exercise program. Pain and decreased range of motion are affecting the patient's ability to sleepand activities of daily living and we have recommended surgical intervention. Questions answered in laymen terms at the bedside. The diagnosis, home exercise plan and any ongoing restrictions/ recommendations reviewed. If unable to be reached in office, I recommend evaluation at nearest Emergency Room if any symptoms worsened or new symptoms develop for requiring urgent evaluation. documented in this encounterSaint John's [facility] [id number] Telephone encounter Note* Telephone Encounter - Re Maria - 03/16/2024 11:13 AM EST Pt called to cancel her appt for today and would like to proceed with getting the MRI of the Lt knee. She would like to go to [facility] [id number] Miscellaneous Notes* Telephone Encounter - Re Maria - 03/16/2024 11:13 AM EST Pt called to cancel her appt for today and would like to proceed with getting the MRI of the Lt knee. She would like to go to [facility] documented in this encounterSaint John's B[facility] Medical [id number] History of Present illness Narrative* Jayla Bai NP - 03/01/2024 1:45 PM EST Images from the original note were not included. Subjective Patient ID: Riya Garcia is a 43 y.o. female. Est pt, new problem LT knee pain x 2 months, 12/2023. Went to kick her door stopper and turn, states everything twistedexcept her knee. Immediate pain. Pain can be lateral or anterior knee. Can radiate down into lower leg some. Intense pain with pivoting or trying to fully straighten knee. Tightness. Taking IBU or Motrin prn. Using icy hot, biofreeze or tiger balm. Denies N/T, swelling. Occas popping. Admits giving out with pivoting or if it gets pushed. Pain is 3/10 today, can go up to 9/10 with straightening. Does not wake at HS. Prior tx: XR [facility] 03/01/24, IBU, Motrint, icy hot, biofreeze, tiger balm Objective Left Knee Exam Tests Suman: Medial - positive Knee Musculoskeletal Exam Gait Limp: left Inspection Left Erythema: none Effusion: mild Edema: none Ecchymosis: none Palpation Left Tenderness: present Medial joint line: moderate Range of Motion Right Active extension: 0 Active flexion: 120 Left Active extension: 10 Active flexion: 115 Strength Right Extension: 4/5. Flexion: 4/5. Left Extension: 4/5. Flexion: 4/5. Instability Left Medial Suman test: positive Special Signs Left Straight leg raise: normal Patellar compression: none Patellar apprehension: none XR knee 1 or 2 views left Imaging Result: X-rays standing AP and lateral show normal alignment to the knee there was no gross evidence of joint space narrowing, no evidence of flattening of the articular surfaces or marginal osteophytes. There was no evidence of fracture or dislocation. Bony structures in the visual field appeared to be well ossified. Impression: No acute bony process, left knee Assessment/Plan Encounter Diagnoses: ICD-10-CM 1. Internal derangement of left knee M23.92 methylPREDNISolone (Medrol Dospak) 4 MG tablets 2. Left knee pain, unspecified chronicity M25.562 XR knee 1 or 2 views left will try MDP, take as directed, no nsaids while taking MDP until 24 hrs after the last dose of MDP,may increase BP/HR, f/U in 2 weeks, also printed [employer] website exercises to begin doing, depending on how she is doing may recommend an MRI and she undestands this, may do activities as tolerated documented in this encounterSaint John's B[facility] Medical [id number] History of Present illness Narrative* NATALIE Diallo - 01/29/2024 9:00 AM EST Reason for Appointment: Patient ID: Riya Garcia is a 43 y.o. female who presents for [facility] Patient presents today for Annual Exam. MEDICATIONS Current Outpatient Medications Medication Instructions levonorgestrel-ethinyl estradiol (Aviane, Kurtise, Lessina) 0.1-20 MG-MCG tablet 1 tablet, Oral, [...] uterus BMI 20.0-20.9, adult Contraception management Depression ([facility]) Elective History of abnormal uterine bleeding Oral contraceptive use Premature atrial beat Schamberg disease Underweight Well woman exam HISTORY PAST MEDICAL HISTORY SOCIAL HISTORY Past Medical History: Diagnosis Date Abnormal uterine bleeding Anxiety At risk for falls Bicornuate uterus BMI 20.0-20.9, adult Contraception management Depression (CMS/HCC) Elective History of abnormal uterine bleeding Oral [...] nursing note reviewed. Exam conducted with a seasonal retail merchandiser present. Vitals: Estimated body mass index is [...] by Eliza Hastings MA on behalf of: NATALIE Diallo documented in this encounterSaint John's Breech [facility] [id number] NoteEducation Materials Gastroenterology Viral Gastroenteritis, Adult Viral gastroenteritis is also known as the stomach flu. This condition may affect your stomach, your small intestine, and your large intestine. It can cause sudden watery poop (diarrhea), fever, and vomiting. This condition is caused by certain germs (viruses). These germs can be passed from personto person very easily (are contagious). Having watery [...] than 2 years. ? Living in a residential. ? Going on cruise ships. What are [...] of treatment is to replace the fluids thatyou lose. This condition may be treated with: [...] cannot use soap and water, use hand recreation coordinator. ? Make sure that all people in your home wash their hands well and often. ? Take viih-vgx-eqbtchy and prescription medicines only as told by [...] by your doctor. Th (more content not included)...[facility] [id number] NotePatient Education Materials Follows: Nausea and Vomiting, Adult Nausea is the feeling that you have an upset stomach or that you are about to vomit. As nausea getsworse, it can lead to vomiting. Vomiting is when stomach contents forcefully come out of your mouthas a result of nausea. Vomiting can make [...] added (diluted fruit juice). ? Eat bland, zzlo-iz-yypezv foods in small amounts as you are able. These foods include bananas, applesauce, rice, lean meats, toast, and crackers. ? Avoid fluids that contain a lot of sugar or caffeine, such as energy drinks, sports drinks, and soda. ? Avoid alcohol. ? Avoid spicy or fatty foods. General instructions ? Take bgca-ntv-tulfcvi and prescription medicines only as told by your health care provider. ? Drink enough fluid to keep your urine pale yellow. ? Wash your hands often using soap and water for at least 20 seconds. If soap and water are not available, use hand recreation coordinator. ? Make sure that everyone in your [...] and drinking to prevent dehydration. ? Take myzo-eto-hlguefs and prescription medicines only as told by [...] provider. Document Revised: 08/17/2021 Document Reviewed: 08/17/2021 [employer] Patient Education ? 2022 [employer] Vomiting, Adult Vomiting is when stomach [...] drinking Follow these rec (more content not included)...[facility] [id number] Note Patient Education Materials Follows: Postnasal Drip Postnasal drip is the feeling of mucus going down the back of your throat. Mucus is a slimy substance that moistens and cleans your nose and throat, as well as the air pockets in face bones near yourforehead and cheeks (sinuses). Small amounts of mucus pass from your nose and sinuses down the backof your throat all the time. This is [...] day or as needed. To make a salt- water mixture, completely dissolve ??1 tsp of salt [...] nasal passages moist. General instructions ? Take btvf-ncz-hmccodn and prescription medicines only as told by your health care provider. ? Follow instructions from your health care provider about eating or drinking restrictions. You mayneed to avoid caffeine. ? Avoid things that [...] provider. Document Revised: 11/21/2020 Document Reviewed: 11/21/2020 [employer] Patient Education ? 2021 [employer] Infectious Disease Upper Respiratory Infection, Adult An upper respiratory infection (URI) is a common viral infection of the nose, throat, and upper airpassages that lead to the lungs. The most [...] to help relieve symptoms, such as: ? Mwqv-aen-igmydtr cold medicines. ? Cough suppressants. Coughing is a type of defense against infection that helps to clear the respiratory system, so take these medicines only as recommended by your health care provider. ? Fever-reducing medicines. (more content not included)...[facility] [id number] NotePatient Education Materials Follows:Disease Postherpetic Neuralgia Postherpetic neuralgia (PHN) is nerve pain that occurs after a shingles infection. Shingles is a painful rash that appears on one area of the body, usually on the trunk or face. Shingles is caused bythe varicella-zoster virus. This is the same virus that causes chickenpox. In people who have had ch ickenpox, the virus can resurface years later and cause shingles. PHN appears in the same area where you had the shingles rash. The pain usually goes away after the rash disappears. You may have PHN if you continue to have pain 3 months after your shingles rash hasgone away. What are the causes? This condition [...] for PHN will focus on pain relief. Ltec-jyj-btltdus pain relievers do not usually relieve PHN [...] these instructions at home: Medicines ? Take eghf-nls-hdwxbzn and prescription medicines only as told by your health care provider. ? Ask your health care provider if the medicine prescribed to you: ? Requires you to avoid driving or using machinery. ? Can cause constipation. You may need to take these actions to prevent or treat constipation: ? Drink enough fluid to keep your urine pale yellow. ? Take ebpy-qxs-ycffesq or prescription medicines. ? Eat foods that [...] or have thoughts about taking your own life,get help right away. Go to your nearest emergency department or: ? Call your local emergency services (911 in the [place] ? Call a suicide crisis helpline, such as the National Suicide Prevention Lifeline at . This is open 24 hours a day in the [place] ? Text the Crisis Text Line at 739105 (in the [place] Summary ? Postherpetic neuralgia (PHN) is a very painful disorder that can occur after an episode of shingles. ? The pain is often severe and may be described as stabbing, (more content not included)...[facility] HospitalEvaluation note* Diagnosis Well woman exam with routine gynecological exam Routine gynecological examination Breast cancer screening by mammogram Depression, unspecified depression type (CMS/HCC) documented [facility] Diagnosis Internal derangement of left knee- Primary Left knee pain, unspecified chronicity documented [facility]* Diagnosis Left knee pain, unspecified chronicity- Primary Acute medial meniscus tear of left knee, initial encounter documented [facility]* Diagnosis Internal derangement of left knee Internal derangement of left knee documented [facility]* Diagnosis Acute medial meniscus tear of left knee, initial encounter- Primary documented [facility]* Diagnosis S/P left knee arthroscopy- Primary Knee effusion, left Effusion of lower leg joint documented [facility] Diagnosis S/P left knee arthroscopy- Primary documented in [facility]* Diagnosis S/P left knee arthroscopy- Primary [facility]* Diagnosis S/P left knee arthroscopy- Primary Acute pain of left knee documented [facility]* Diagnosis BV (bacterial vaginosis)- Primary Unspecified vaginitis and vulvovaginitis Vaginal discharge Leukorrhea, not specified as infective documented in this encounter [facility] Summary [...] section and content) DATE CREATED AUTHOR 05/01/2018 [facility] DATE CREATED AUTHOR AUTHOR'S ORGANIZ ATION 05/01/2018 [facility] DATE CREATED AUTHOR AUTHOR'S ORGANIZ ATION 02/02/2022 [facility] DATE CREATED AUTHOR AUTHOR'S ORGANIZ ATION 03/10/2023 [facility] DATE CREATED AUTHOR AUTHOR'S ORGANIZ ATION 01/01/2025 [facility] EPIC Reason for Visit (unrecogniz ed section and content) ReasonCommentsWell Women VisitReasonCommentsPainReasonOnset DateCommentssurgery 04/14/2024ReasonCommentsPainReasonCommentsFollow-upReasonComments Vaginitis/Bacterial Vaginosis Care Teams (unrecognized sec tion and content) Team MemberRelationshipSpecialtyStart DateEnd Date Jayla Bai PROTECTION OFFICER [address] [facility] [address] [place] [address] PCP - [employer]05/25/22 Jimmie Tomas MD [address] [place] [address] PCP - Generalmily Medicine11/07/22Team MemberRelationshipSpecialtyStart DateEnd Date Jayla Bai, PROTECTION OFFICER [address] [facility] [address] [place] [address] PCP - [employer]05/25/22 Jimmie Tomas MD [address] [place] [address] [facility]11/07/22Team MemberRelationshipSpecialtyStart DateEnd Date Jayla Bai, PROTECTION OFFICER [address] [facility] [address] [place] [address] PCP - [employer]05/25/22 Jimmie Tomas MD [address] [place] [address] PCP - GeneralFamily Medicine11/07/22Team MemberRelationshipSpecialtyStart DateEnd Date Jayla Bai PROTECTION OFFICER [address] [facility] [address] [place] [address] PCP - [employer]05/25/22 Jimmie Tomas MD [address] [place] [address] PCP - GeneralFamily Medicine11/07/22Team MemberRelationshipSpecialtyStart DateEnd Date Jayla Bai PROTECTION OFFICER [address] [facility] [address] [place] [address] PCP - [employer]05/25/22 Jimmie Tomas MD [address] [place] [address] PCP - GeneralFamily Medicine11/07/22Team MemberRelationshipSpecialtyStart DateEnd Date Jayla Bai PROTECTION OFFICER PCP - [facility] [employer]05/25/22 Jimmie Tomas MD [address] [place] [address] PCP - GeneralFamily Medicine11/07/22Team MemberRelationshipSpecialtyStart DateEnd Date Jayla Bai NP PCP - [employer] [employer]05/25/22 Jimmie Tomas MD PCP - GeneralFamily Medicine11/07/22Team MemberRelationshipSpecialtyStart DateEnd Date Jayla Bai PROTECTION OFFICER PCP - [employer] [employer]05/25/22 Genoveva, Jimmie Parham MD PCP - GeneralFamily Medicine11/07/22Team MemberRelationshipSpecialtyStart DateEnd Date Jayla Bai PROTECTION OFFICER PCP - [facility] [employer]05/25/22 Genoveva, Jimmie Parham MD PCP - GeneralFamily Medicine11/07/22Team MemberRelationshipSpecialtyStart DateEnd Date Jayla Bai PROTECTION OFFICER PCP - [facility] [employer]05/25/22 Genoveva, Jimmie Parham MD PCP - GeneralFamily Medicine11/07/22Team MemberRelationshipSpecialtyStart DateEnd Date Jayla Bai PROTECTION OFFICER PCP - [employer] [employer]05/25/22 Jimmie Tomas MD PCP - GeneralFamily Medicine11/07/22Team MemberRelationshipSpecialtyStart DateEnd Date Jayla Bai, PROTECTION OFFICER PCP - [facility] [employer]05/25/22 Jimmie Tomas MD PCP - GeneralFamily Medicine11/07/22Team MemberRelationshipSpecialtyStart DateEnd Date Jayla Bai, PROTECTION OFFICER PCP - [employer] [employer]05/25/22 Unallocated, Alexandre Carpio MD [address] [place] [address] PCP - [facility]07/28/24Team MemberRelationshipSpecialtyStart DateEnd Date Jayla Bai NP PCP - [employer] [employer]05/25/22 Unallocated, Alexandre Carpio MD [address] [place] [address] PCP - [facility]07/28/24Team MemberRelationshipSpecialtyStart DateEnd Date Jayla Bai NP PCP - [employer] [employer]05/25/22 Unallocated, Alexandre Carpio MD [facility] [place] [address] PCP - [facility]07/28/24Te MemberRelationshipSpecialtyStart DateEnd Date Jayla Bai PROTECTION OFFICER PCP - [employer] [employer]05/25/22 Unallocated, Alexandre Carpio MD [address] [place] [id number] PCP - [facility]07/28/24 FOR RECORDS PERTAINING TO PATIENTS WHO ARE [...] BE BASED ON THE PRIMARY CLINICAL RECORDS. [facility] [employer] [facility]. provides no warranty or guarantee of the accuracy or completeness of information in this document.
--- OUTSIDE RECORDS SUMMARY | 2025-02-02 21:45 | XMS_ITS | Clinical Summary ---
Author Organization [employer] [facility] tem Address [id number] [address] 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 30 tablet 07/18/2020ctive Active Problems ProblemNoted DateDiagnosed DateAnxiety Immunizations ImmunizationAdministration DatesNext DueCOVID-19, mRNA, LNP-S, PF, 30mcg/0.3mL Dose05/21/2020Tdap08/11/2010 Family History Medical HistoryRelationNameCommentsAneurysmFatherSkin cancerFatherArrhythmia MotherRelationNameStatusCommentsFatherDeceasedMotherAlive Social History Tobacco UseTypesPacks/DayYears UsedDateSmoking Tobacco: FormerSmokeless Tobacco: NeverAlcohol UseStandard Drinks/WeekCommentsNot Currently0 (1 standard drink = 0.6 oz pure alcohol)PHQ-2AnswerDate RecordedTotal Eewfi646hildcare AnswerDate ZqbnurfgWnkpggtawBitinum44/12/2019EmploymentAnswerDate Recorded WkqdrboodzHwxmvfz85/12/2019Purpose - LifeAnswerDate RecordedPurpose and direction in jszjTmhsfgu73/11/2021CommentsNoSex and Gender Information ValueDate RecordedSex Assigned at BirthNot on fileLegal CzlNrdnue10/06/2015 11:41 AM EDTGender IdentityNot on fileSexual OrientationNot on file Last Filed Vital Signs Vital SignReadingTime TakenCommentsBlood Ztwfmkjg761/7901/21/2021 9:24 PM EST Hqihn723701/21/2021 9:24 PM TYTEagqhfjhjro16.1 ??C (98.8 ??F)01/21/2021 9:24 PM ESTRespiratory Tjjq299703/23/2020 9:24 PM ESTOxygen Hluiktasqe34%01/21/2021 9:24 PM ESTInhaled Oxygen Concentration--Fyaplb27.2 kg (132 lb 11.2 oz)01/21/2021 9:24 PM KBNVeakde607.7 cm (5' 8 )01/21/2021 9:24 PM ESTBody Mass Index20.18 01/21/2021 9:24 PM EST Plan of Treatment Health MaintenanceDue DateLast DoneCommentsDepression Jdrmnbdji25/26/1994Tobacco Cvgcwaqsx42/26/1994Adult BMI Dwsqwxlbq99/26/2000DTaP,Tdap and Td Vaccines (2 - Td or Tdap)/COVID-19 Vaccine (3 - season)2024 06/11/2020, 05/21/2020Influenza Axjpyuf8110/25/2024Pap Smear/06/2023, 01/10/2022 [employer] Not on file Insurance
== END 2025-02-02 21:41 | disposition home or self-care (01) ==
LOC: LAB 21:40
PROVIDERS: Visit Provider Physician Assistant
DX: Z01.419 Encounter for gynecological examination (general) (routine) without abnormal findings (principal)
CPT/HCPCS: 88175